=== PATIENT | male | born 1955 | race Caucasian/White ===

== ENCOUNTER 2016-08-29 21:44 | Emergency (ER) | payer MEDICARE, OTHER ==
[2016-08-29] MEDS ORDERED: NITROGLYCERIN 0.4 MG/TAB BTL SL ONE (22:01)
[2016-08-29 22:08] LABS: Hematocrit 41.1 % (42.0-52.0); Hemoglobin 14.4 gm/dL (13.5-18.0); Mean Cell Volume 87.3 fl (78-100); Mean Corpuscular Hemoglobin 30.6 pg (27-31); Mean Platelet Volume 9.7 fl (6.0-9.5); Neutrophil # 4.1 K/mm3 (1.3-6.0); Neutrophil % 65.7 % (42-75.0); Platelet Count 153 K/mm3 (150-450); Red Blood Count 4.71 M/mm3 (4.7-6.0); Red Cell Distribution Width 12.6 % (11.5-14.0); White Blood Count 6.2 K/mm3 (4.0-10.5)
[2016-08-29] MEDS ORDERED: MORPHINE SULFATE 4 MG/ML SYRG ONE (22:09)
[2016-08-29] MEDS ORDERED: MORPHINE SULFATE 4 MG/ML SYRG IV ONE (22:10)
[2016-08-29] MEDS ORDERED: ONDANSETRON HCL/PF 2 MG/ML VIAL ONE (22:16)
[2016-08-29] MEDS ORDERED: ONDANSETRON HCL/PF 2 MG/ML VIAL IV ONE (22:17)
[2016-08-29 22:23] LABS: INR 0.87 INR (0.90-1.10); Partial Thrombolplastin Time 30.3 Seconds (24-32)
[2016-08-29 22:29] LABS: ALT 81 U/L (19-67); AST 139 U/L (0-48); Albumin * 4.3 gm/dl (3.4-5.0); Alkaline Phosphatase * 78 U/L (50-170); Anion Gap 30.6 mmol/L (6.8-13.8); BNP * 120 pg/mL (5-175); BUN/Creatinine Ratio 7.5 (9.0-21.6); Bilirubin, Total 1.6 mg/dL (0.0-1.1); Blood Urea Nitrogen 7 mg/dL (6-23); Ca. Corrected For Albumin 8.4 mg/dL (8.4-10.2); Carbon Dioxide 15.9 mmol/L (24-32.6); Chloride 88 mmol/L (97-106); Glucose * 79 mg/dL (70-110); Potassium 3.5 mmol/L (3.4-4.6); Sodium 131 mmol/L (132-142); Total Protein 7.9 gm/dL (6.2-8.2); Troponin I Less than 0.017 ng/ml (0.00-0.10)
[2016-08-29] MEDS ORDERED: THIAMINE HCL 100 MG in NORMAL SALINE 50 ML IV ONE (23:31)
[2016-08-29] MEDS ORDERED: LORazepam 2 MG/ML DISP.SYRIN IV ONE (23:32)
[2016-08-29] MEDS ORDERED: LORazepam 2 MG/ML DISP.SYRIN ONE (23:38)
[2016-08-29] MEDS ORDERED: THIAMINE HCL 100 MG/ML VIAL ONE (23:49)
[2016-08-29] MEDS ORDERED: CODEINE PHOSPHATE/GUAIFENESIN 5 ML UDC PO ONE (23:56)
[2016-08-29] MEDS ORDERED: CODEINE PHOSPHATE/GUAIFENESIN 5 ML UDC ONE (23:57)
[2016-08-30 00:03] VITALS: BP 150/90
--- NOTE | 2016-08-30 00:04 | ERNOTE ---
Chest Pain/Cardiac HPI Date of Service: 08/30/16 Chief Complaint: Chest Pain Time Seen by Provider: 08/29/16 21:50 Source: patient, family Immunizations: IMMUNIZATION HX Immunizations Up to Date No History of Influenza Vaccine No Hx Pneumococcal Vaccination No Allergies/Adverse Reactions: Allergies No Known Allergies Allergy (Verified 02/13/16 12:49) Home Medications: HOME MEDICATIONS Amoxicillin Trihydrate [Amoxil] 875 mg PO BID #20 tab 05/05/16 [Last Taken Unknown] LORazepam [Ativan] 0.5 mg PO TID #15 tablet 05/13/16 [Last Taken Unknown] Guaifenesin/Codeine Phosphate [Guaifenesin-Codeine Syrup] 10 ml PO QID PRN #180 liquid 08/30/16 [Last Taken Unknown] - Patient's Past Medical History Patient History - Medical: Alcohol Abuse, Anxiety Patient History - Cardiac/Respiratory: No pertinent hx Patient History - Cancer: No Hx of Cancer Patient History - Surgical Procedures: Total Knee Replacement, Other - Family History Mother Family History - Medical: Father Family History - Medical: - Social History Living Situations: other Does anyone smoke in the home?: No Have you smoked in the past 12 months: No Do you dip or chew tobacco: Yes Alcohol Use: heavy Drug Use: marijuana ED Progress - Results and Orders Patient's Lab Results:: I have reviewed the patient's lab results. - Vital Signs Patient's Vital Signs:: I have reviewed the patient's vital signs. Vital Signs: Vital Signs 08/29/16 08/29/16 08/29/16 21:53 22:05 22:08 Temperature 37.7 C H Pulse Rate 114 H 110 H 110 H Respiratory 20 16 16 Rate Blood Pressure 164/97 164/97 145/96 O2 Sat by Pulse 99 97 98 Oximetry 08/29/16 08/29/16 08/29/16 22:20 22:28 22:38 Temperature Pulse Rate 110 H 110 H 113 H Respiratory 20 20 Rate Blood Pressure 136/87 135/94 O2 Sat by Pulse 97 99 Oximetry 08/29/16 08/29/16 23:02 23:44 Temperature Pulse Rate 102 H 98 Respiratory 20 20 Rate Blood Pressure 126/85 139/99 O2 Sat by Pulse 98 97 Oximetry - EKG EKG read: Interp. by me EKG Comments: Sinus tach, rate of 108. IVCD. No acute ST-T changes. - X-Ray X-Ray #1 X-Ray: chest Interpretation: Reviewed by me X-ray Comments: negative - Progress/Reassessment Chief Complaint: Chest Pain Progress:: Improved Departure - Departure Clinical Impression: Alcohol intoxication, Alcoholism /alcohol abuse, Pleurisy, Viral bronchitis Disposition: Home self-care Condition: Good Instructions: Alcohol Use Disorder, Pleurisy Additional Instructions: Use cough medication as needed for cough and pain. You may take ibuprofen as needed for pain- 400 mg 4 times per day. Take a daily multivitamin. Decrease the amount you drink or quit. If you develop alcohol withdrawal return to an ER or a rehab center. Prescriptions: Guaifenesin/Codeine Phosphate [Guaifenesin-Codeine Syrup] 10 ml PO QID PRN #180 liquid PRN Reason: Cough
== END 2016-08-30 00:15 | disposition home or self-care (01) ==
LOC: ER 21:44
DX: J20.8 Acute bronchitis due to other specified organisms (principal); R09.1 Pleurisy; F10.129 Alcohol abuse with intoxication, unspecified
CPT/HCPCS: 36415; 71010; 80053; 83880; 84484; 85025; 85610; 85730; 93005; 96365; 96375; 99283; G0481

== ENCOUNTER 2016-09-01 08:26 | Emergency (ER) | payer MEDICARE, OTHER ==
[2016-09-01 09:29] LABS: Hematocrit 37.3 % (42.0-52.0); Hemoglobin 12.8 gm/dL (13.5-18.0); Mean Cell Volume 89.2 fl (78-100); Mean Corpuscular Hemoglobin 30.6 pg (27-31); Mean Corpuscular Hgb Conc 34.3 g/dl (32-36); Mean Platelet Volume 9.6 fl (6.0-9.5); Neutrophil # 3.3 K/mm3 (1.3-6.0); Neutrophil % 62.8 % (42-75.0); Platelet Count 109 K/mm3 (150-450); Red Blood Count 4.18 M/mm3 (4.7-6.0); Red Cell Distribution Width 12.7 % (11.5-14.0); White Blood Count 5.2 K/mm3 (4.0-10.5)
[2016-09-01] MEDS ORDERED: ALBUTEROL SULFATE 2.5 MG/0.5 ML VIAL.NEB IH ONE ×2 (09:41→09:56)
[2016-09-01] MEDS ORDERED: IBUPROFEN 600 MG TABLET PO ONE (09:42)
--- NOTE | 2016-09-01 09:48 | ERNOTE ---
[id number] 4d 09/01/16 09:36 Source: patient Exam Limitations: no limitations - Immun/Allergies/Home Medications Immunizations: IMMUNIZATION HX Immunizations Up to Date No History of Influenza Vaccine No Hx Pneumococcal Vaccination No Allergies/Adverse Reactions: Allergies No Known Allergies Allergy (Verified 02/13/16 12:49) Home Medications: HOME MEDICATIONS Guaifenesin/Codeine Phosphate [Guaifenesin-Codeine Syrup] 10 ml PO QID PRN #180 liquid 08/30/16 [Last Taken Unknown] Azithromycin [Zithromax] 500 mg PO DAILY #3 tablet 09/01/16 [Last Taken Unknown] Ibuprofen [Motrin] 600 mg PO Q6H PRN #40 tab 09/01/16 [Last Taken Unknown] LORazepam [Ativan] 1 mg PO TID PRN #10 tablet 09/01/16 [Last Taken Unknown] - History of Present Illness Narrative: Patient states that he has had a cough with yellow sputum and dyspnoe for about three days. He was seen in the ER three days ago and send home with cough medication. While checking in to the Er he started to have a sharp left anterior chest pain without radiation. When asked bout ETOH intake he states that last was about 3 weeks ago, when asked about the level 3 days ago states that he had 3-4 shots at that time. Frequency of episodes: Reports: occassional episodes Review of Systems - Review of Systems Constitutional: Absent: fever, chills ENT: Present: nose congestion. Absent: sore throat Respiratory: Present: shortness of breath, cough, stridor Cardiology: Present: See HPI, chest pain Gastrointestinal/Abdominal: Absent: nausea, vomiting, diarrhea, abdominal pain Skin: Absent: rash Neurological: Absent: headache - Patient's Past Medical History Patient History - Medical: Alcohol Abuse, Anxiety Patient History - Cardiac/Respiratory: No pertinent hx Patient History - Cancer: No Hx of Cancer Patient History - Surgical Procedures: Total Knee Replacement, Other - Family History Mother Family History - Medical: Father Family History - Medical: - Social History Living Situations: other Does anyone smoke in the home?: No Smoking Status: Former smoker Have you smoked in the past 12 months: Yes Do you dip or chew tobacco: Yes Alcohol Use: heavy Drug Use: marijuana Physical Exam - Physical Exam General Appearance: Present: wd/wn, alert, no apparent distress, anxious Eye Exam: Normal inspection: bilateral, PERRL: bilateral Ears, Nose, Throat: Present: normal pharynx, dry mucous membranes Respiratory: Present: no respiratory distress, no accessory muscle use, chest tenderness - anterior left lower chest, decreased breath sounds, expiration ( prolonged) Cardiovascular/Chest: Present: regular rate, rhythm, no murmur Gastrointestinal/Abdominal: Present: nontender, nondistended, soft Extremity Exam: Present: no edema Neurological Exam: Present: alert, oriented, normal mood/affect Skin Exam: Present: normal color, warm/dry ED Progress - Results and Orders Patient's Lab Results:: I have reviewed the patient's lab results. - Vital Signs Patient's Vital Signs:: I have reviewed the patient's vital signs. Vital Signs: Vital Signs 09/01/16 08:59 Temperature 37.7 C H Pulse Rate 88 Respiratory 20 Rate Blood Pressure 191/115 O2 Sat by Pulse 99 Oximetry - EKG EKG: NSR, other - intraventricular conduction delay EKG read: Interp. by me - X-Ray X-Ray #1 X-Ray: chest - questionable infiltrate right lower lung Interpretation: Reviewed by me X-ray Comments: discussed results with patient - Progress/Reassessment Chief Complaint: Dyspnea Progress Note-Subjective: 09/01/16 10:16 patient very anxious after neb treatment 09/01/16 11:05 lungs improved after neb treatment, discussed results and questionable diagnosis of pneumonia patient states that he is not planing on drinking ETOH again, stopped drinking once before years ago and got tremor but no seizure, slight hand tremor notice currently, discussed medications to help with withdrawl, will set up for follow up Departure Clinical Impression: Alcoholism /alcohol abuse Alcohol withdrawal Qualifiers: Complication of substance-induced condition: uncomplicated Qualified Code(s): F10.230 - Alcohol dependence with withdrawal, uncomplicated Pneumonia Qualifiers: Pneumonia type: due to unspecified organism Laterality: right Lung location: lower lobe of lung Qualified Code(s): J18.1 - Lobar pneumonia, unspecified organism - Departure Disposition: Home self-care Condition: Fair Instructions: Delirium Tremens, [id number], Community-Acquired Pneumonia, Adult, [id number] Referrals: Nereyda Tamayo FNP [[facility]] - 09/11/16 1:30 pm Prescriptions: Azithromycin [Zithromax] 500 mg PO DAILY #3 tablet Ibuprofen [Motrin] 600 mg PO Q6H PRN #40 tab PRN Reason: Pain LORazepam [Ativan] 1 mg PO TID PRN #10 tablet PRN Reason: Alcohol Withdrawal
[2016-09-01 09:49] LABS: ALT 93 U/L (19-67); AST 154 U/L (0-48); Albumin * 3.8 gm/dl (3.4-5.0); Alkaline Phosphatase * 62 U/L (50-170); Anion Gap 19.2 mmol/L (6.8-13.8); BUN/Creatinine Ratio 10.6 (9.0-21.6); Bilirubin, Total 0.6 mg/dL (0.0-1.1); Blood Urea Nitrogen 10 mg/dL (6-23); Ca. Corrected For Albumin 8.7 mg/dL (8.4-10.2); Calcium * 8.9 mg/dL (7.9-10.9); Carbon Dioxide 22.9 mmol/L (24-32.6); Chloride 98 mmol/L (97-106); Glucose * 125 mg/dL (70-110); Potassium 3.1 mmol/L (3.4-4.6); Sodium 137 mmol/L (132-142); Total Protein 7.1 gm/dL (6.2-8.2)
[2016-09-01 09:50] LABS: Troponin I Less than 0.017 ng/ml (0.00-0.10)
[2016-09-01] MEDS ORDERED: IBUPROFEN 600 MG TABLET ONE (09:55)
[2016-09-01] MEDS ORDERED: LORazepam 2 MG/ML DISP.SYRIN IM ONE (10:12)
[2016-09-01] MEDS ORDERED: LORazepam 2 MG/ML DISP.SYRIN ONE (10:12)
[2016-09-01] MEDS ORDERED: LORazepam 1 MG TABLET PO ONE (11:00)
[2016-09-01] MEDS ORDERED: AZITHROMYCIN 250 MG TABLET PO ONE (11:02)
[2016-09-01] MEDS ORDERED: LORazepam 1 MG TABLET ONE (11:04)
[2016-09-01] MEDS ORDERED: AZITHROMYCIN 250 MG TABLET ONE (11:05)
[2016-09-01] MEDS ORDERED: THIAMINE HCL 100 MG/ML VIAL IM ONE (11:05)
[2016-09-01] MEDS ORDERED: THIAMINE HCL 100 MG/ML VIAL ONE (11:06)
[2016-09-01 12:07] VITALS: BP 170/101
== END 2016-09-01 11:15 | disposition home or self-care (01) ==
LOC: ER 08:26
DX: F10.230 Alcohol dependence with withdrawal, uncomplicated (principal); J18.1 Lobar pneumonia, unspecified organism; Z87.891 Personal history of nicotine dependence
CPT/HCPCS: 36415; 71020; 80053; 84484; 85025; 87400; 93005; 94760; 96372; 99284; G0481

== ENCOUNTER 2016-11-10 10:06 | Emergency (ER) | payer MEDICARE, OTHER ==
[2016-11-10] MEDS ORDERED: ORPHENADRINE CITRATE 30 MG/ML VIAL ONE (10:29)
--- NOTE | 2016-11-10 10:36 | ERNOTE ---
Date of Service: 11/10/16 Time Seen by Provider: 11/10/16 10:36 Stated Complaint: COUGH/BODY ACHES Presenting Symptoms:: cough Source: patient, RN notes reviewed Exam Limitations: clinical condition Immunizations: IMMUNIZATION HX Immunizations Up to Date No History of Influenza Vaccine No Hx Pneumococcal Vaccination No Allergies/Adverse Reactions: Allergies No Known Allergies Allergy (Verified 02/13/16 12:49) Home Medications: HOME MEDICATIONS Albuterol Sulfate [Ventolin Hfa] 2 puff IH Q4H PRN #1 inhaler 11/10/16 [Last Taken Unknown] Azithromycin [Zithromax] 250 mg PO DAILY #6 tablet 11/10/16 [Last Taken Unknown] Guaifenesin/Codeine Phosphate [Guaifenesin-Codeine Syrup] 10 ml PO Q4H PRN #180 ml 11/10/16 [Last Taken Unknown] predniSONE [Prednisone] 2 tab PO DAILY #14 tab 11/10/16 [Last Taken Unknown] - History of Present Ilness Narrative: 60 y/o male ambulatory to the ED for a cough that began 2 days ago. He also reports body aches. He has been taking an OTC cough /cold medication. He denies sick contacts. Date (Duration): 11/08/16 Timing: getting worse Frequency/Possible Cause: Reports: unknown cause Associated Symptoms: Reports: chest pain/soreness, cough, nasal drainage, headache, muscle aches. Denies: shortness of breath, wheezing, facial pain, nasal congestion, lightheadedness, earache, sore throat Prior Treatment: Denies: currently on antibiotics Review of Systems - Review of Systems Constitutional: Present: fatigue, malaise. Absent: chills EYE: Present: no symptoms reported ENT: Present: See HPI Respiratory: Present: See HPI Cardiology: Absent: palpitations, syncope, edema Gastrointestinal/Abdominal: Present: diarrhea. Absent: nausea, vomiting, abdominal pain Genitourinary: Present: no symptoms reported Musculoskeletal: Present: See HPI Neurological: Present: headache. Absent: dizziness/light-headedness Endocrine: Present: no symptoms reported Hematologic/Lymphatic: Present: no symptoms reported Psych: Present: no symptoms reported - Patient's Past Medical History Patient History - Medical: Alcohol Abuse, Anxiety Patient History - Cardiac/Respiratory: COPD Patient History - Cancer: No Hx of Cancer Patient History - Surgical Procedures: Total Knee Replacement, Other Patient History - Other: None - Family History Mother Family History - Medical: Father Family History - Medical: - Social History Living Situations: home Abuse History: No History of abuse Psych History: Hx of Anxiety Does anyone smoke in the home?: No Smoking Status: Former smoker Have you smoked in the past 12 months: No Do you dip or chew tobacco: Yes Patient requests Smoking Cessation Consult: No Initiate information on Smoking Cessation: No Alcohol Use: heavy Drug Use: marijuana - Immunizations Immunizations Up to Date: No Hx Pneumococcal Vaccination: No History of Influenza Vaccine: No Physical Exam - Physical Exam General Appearance: Present: wd/wn, alert, no apparent distress Eye Exam: Normal inspection: bilateral Ears, Nose, Throat: Present: hearing decreased, nasal congestion, pharyngeal erythema. Absent: abnormal TM (R), abnormal TM (L), sinus pain/drainage, tonsillar swelling Neck: Present: normal inspection, nontender, supple Respiratory: Present: no respiratory distress, chest tenderness, accessory muscle use - mild, expiration (prolonged), rhonchi, wheezing Cardiovascular/Chest: Present: regular rate, rhythm, no murmur, normal peripheral pulses Gastrointestinal/Abdominal: Present: nontender, nondistended, soft Extremity Exam: Present: normal inspection, normal range of motion, no edema Neurological Exam: Present: alert, oriented, normal mood/affect, no motor/ sensory deficits, other - freq abnormal movements, akasthesia-like Skin Exam: Present: normal color, warm/dry ED Progress - Results and Orders Patient's Lab Results:: I have reviewed the patient's lab results. - Vital Signs Patient's Vital Signs:: I have reviewed the patient's vital signs. Vital Signs: Vital Signs 11/10/16 10:12 Temperature 37 C Pulse Rate 113 H Respiratory 20 Rate Blood Pressure 147/86 O2 Sat by Pulse 99 Oximetry - X-Ray X-Ray #1 X-Ray: chest Interpretation: Reviewed by me X-ray Comments: Technique: Frontal and lateral views of the chest are evaluated. (2) views. Comparison: Prior exams, most recent is September 01, 2016. Findings: The lungs are symmetrically inflated. No focal consolidation. Biapical scarring noted. No pneumothorax or pleural effusion. The cardiac silhouette and mediastinal contours are normal. Atherosclerotic changes are present at the aortic arch. Pulmonary vascular markings are normal. The osseous structures are remarkable for degenerative changes. No acute osseous findings. IMPRESSION: No acute pulmonary findings. Electronically signed by Art Lopez D.O.. - Progress/Reassessment Chief Complaint: Cough Progress:: Improved Plan - Plan Plan: Patient pancytopenic and LFT's are elevated beyond his normal with his chronic alcohol use. Recheck scheduled with PCP for the end of this week. Departure - Departure Clinical Impression: COPD with acute exacerbation Disposition: Home Follow Up Needed Condition: Stable Instructions: Chronic Obstructive Pulmonary Disease Exacerbation, [id number] Additional Instructions: Avoid over the counter medications containing Tylenol (acetominophen) because of your liver impairment Recheck with Nereyda Tamayo as scheduled Referrals: Nereyda Tamayo, [facility] [[facility]] - 11/14/16 8:45 am Prescriptions: Albuterol Sulfate [Ventolin Hfa] 2 puff IH Q4H PRN #1 inhaler PRN Reason: Shortness Of Breath Azithromycin [Zithromax] 250 mg PO DAILY #6 tablet Guaifenesin/Codeine Phosphate [Guaifenesin-Codeine Syrup] 10 ml PO Q4H PRN #180 ml PRN Reason: Cough predniSONE [Prednisone] 2 tab PO DAILY #14 tab
[2016-11-10] MEDS ORDERED: ALBUTEROL SULFATE/IPRATROPIUM 3 ML NEBU IH ONE ×2 (10:47→10:52)
[2016-11-10 11:11] LABS: Hematocrit 39.9 % (42.0-52.0); Hemoglobin 14.1 gm/dL (13.5-18.0); Mean Cell Volume 87.3 fl (78-100); Mean Corpuscular Hemoglobin 30.9 pg (27-31); Mean Corpuscular Hgb Conc 35.3 g/dl (32-36); Mean Platelet Volume 10.9 fl (6.0-9.5); Neutrophil # 1.8 K/mm3 (1.3-6.0); Neutrophil % 65.2 % (42-75.0); Platelet Count 105 K/mm3 (150-450); Red Blood Count 4.57 M/mm3 (4.7-6.0); White Blood Count 2.8 K/mm3 (4.0-10.5)
[2016-11-10] MEDS ORDERED: NALBUPHINE HCL 20 MG/ML AMPUL ONE (11:11)
[2016-11-10 11:21] LABS: Anion Gap 18.5 mmol/L (6.8-13.8); BUN/Creatinine Ratio 13.3 (9.0-21.6); Bilirubin, Total 0.6 mg/dL (0.0-1.1); Ca. Corrected For Albumin 8.7 mg/dL (8.4-10.2); Carbon Dioxide 23.7 mmol/L (24-32.6); Potassium 3.2 mmol/L (3.4-4.6); Total Protein 7.6 gm/dL (6.2-8.2)
[2016-11-10 17:45] VITALS: BP 135/84
== END 2016-11-10 12:32 | disposition home or self-care (01) ==
LOC: ER 10:06
DX: J44.1 Chronic obstructive pulmonary disease with (acute) exacerbation (principal); Z72.0 Tobacco use

== ENCOUNTER 2016-11-11 17:02 | Emergency (ER) | payer MEDICARE, OTHER ==
[2016-11-11 17:31] LABS: Hematocrit 40.5 % (42.0-52.0); Hemoglobin 13.7 gm/dL (13.5-18.0); Mean Cell Volume 89.6 fl (78-100); Mean Corpuscular Hemoglobin 30.3 pg (27-31); Mean Corpuscular Hgb Conc 33.8 g/dl (32-36); Mean Platelet Volume 9.9 fl (6.0-9.5); Neutrophil % 64.6 % (42-75.0); Platelet Count 143 K/mm3 (150-450); Red Blood Count 4.52 M/mm3 (4.7-6.0); White Blood Count 3.1 K/mm3 (4.0-10.5)
--- NOTE | 2016-11-11 17:32 | ERNOTE ---
Upper Extremity HPI - General Extremities Pain Location: shoulder: left, arm: left Time Seen by Provider: 11/11/16 17:21 Source: patient Exam Limitations: no limitations - Immun/Allergies/Home Medications Immunizations: IMMUNIZATION HX Immunizations Up to Date No History of Influenza Vaccine No Hx Pneumococcal Vaccination No Allergies/Adverse Reactions: Allergies Allergy/AdvReac Type Severity Reaction Status Date / Time No Known Allergies Allergy Verified 11/11/16 17:15 Home Medications: HOME MEDICATIONS Albuterol Sulfate [Ventolin Hfa] 2 puff IH Q4H PRN #1 inhaler 11/10/16 [Last Taken Unknown] Azithromycin [Zithromax] 250 mg PO DAILY #6 tablet 11/10/16 [Last Taken Unknown] Guaifenesin/Codeine Phosphate [Guaifenesin-Codeine Syrup] 10 ml PO Q4H PRN #180 ml 11/10/16 [Last Taken Unknown] predniSONE [Prednisone] 2 tab PO DAILY #14 tab 11/10/16 [Last Taken Unknown] Cyclobenzaprine HCl [Flexeril] 10 mg PO TID PRN #30 tab 11/11/16 [Last Taken Unknown] Methylprednisolone [Medrol Dosepak] 4 mg PO DAILY #1 tab.ds.pk 11/11/16 [Last Taken Unknown] - History of Present Illness Narrative: Pt had onset of left shoulder and arm pain while making supper this evening. Occurred: just prior to arrival Location of Incident: home Severity: moderate Method of Injury: Reports: no apparent injury Modifying Factors - (Worsens): Reports: movement Associated Symptoms: Reports: tingling - of arm Other Injuries: Reports: none Review of Systems - Review of Systems Constitutional: Present: recent illness - dx with acute exacerbation of COPD yesterday EYE: Present: no symptoms reported ENT: Present: no symptoms reported Respiratory: Present: cough Cardiology: Present: no symptoms reported Gastrointestinal/Abdominal: Present: no symptoms reported Genitourinary: Present: no symptoms reported Musculoskeletal: Present: See HPI, muscle pain, neck pain Skin: Present: no symptoms reported Neurological: Present: See HPI, tingling Endocrine: Present: no symptoms reported Hematologic/Lymphatic: Present: no symptoms reported Psych: Present: no symptoms reported - Patient's Past Medical History Patient History - Medical: Alcohol Abuse, Anxiety Patient History - Cardiac/Respiratory: COPD Patient History - Cancer: No Hx of Cancer Patient History - Surgical Procedures: Total Knee Replacement, Other Patient History - Other: None - Family History Mother Family History - Medical: Father Family History - Medical: - Social History Living Situations: home Abuse History: No History of abuse Psych History: Hx of Anxiety Does anyone smoke in the home?: No Smoking Status: Former smoker Do you dip or chew tobacco: Yes Alcohol Use: heavy Drug Use: marijuana - Immunizations Immunizations Up to Date: No Hx Pneumococcal Vaccination: No History of Influenza Vaccine: No Physical Exam - Physical Exam General Appearance: Present: wd/wn, alert, anxious Eye Exam: Normal inspection: bilateral Respiratory: Present: no respiratory distress, normal breath sounds Cardiovascular/Chest: Present: regular rate, rhythm, no murmur, normal peripheral pulses Gastrointestinal/Abdominal: Present: nontender, nondistended, soft Back Exam: Present: no vertebral tenderness, muscle spasm - upper trapezius Extremity Exam: Present: normal range of motion - of shoulder with pain with any movement Neurological Exam: Present: alert, oriented. Absent: motor weakness Skin Exam: Present: normal color, warm/dry ED Progress - Results and Orders Patient's Lab Results:: I have reviewed the patient's lab results. Results and Orders: Laboratory Tests 11/11/16 11/11/16 11/11/16 17:25 17:25 17:25 WBC 3.1 L Hgb 13.7 Hct 40.5 L Plt Count 143 L PT 9.6 INR (Anticoag Therapy) 0.92 PTT (Dc) 31.9 Sodium 135 Potassium 3.5 Chloride 97 Carbon Dioxide 23.9 L Anion Gap 17.6 H BUN 9 Creatinine 0.86 Est GFR (Non-Af Amer) 97 Random Glucose 124 H Calcium 8.7 Total Bilirubin 0.4 AST 375 H ALT 308 H Alkaline Phosphatase 59 Troponin I Less than 0.017 Total Protein 7.5 Albumin 4.0 - Vital Signs Vital Signs: Vital Signs 11/11/16 17:06 Temperature 37.6 C H Pulse Rate 120 H Respiratory 16 Rate Blood Pressure 156/109 O2 Sat by Pulse 96 Oximetry - EKG EKG read: Interp. by me EKG Comments: sinus tach. Intraventricular conduction delay seen on previous 09/01/2016. - Progress/Reassessment Chief Complaint: Upper Extremity Injury/Problem Departure Clinical Impression: Radiculopathy of arm - Departure Disposition: Home self-care Condition: Good Instructions: Cervical Radiculopathy Additional Instructions: Take medrol dose pack instead of the prednisone prescribed to you yesterday. Referrals: Nereyda Tamayo FNP [Primary Care Provider] - Prescriptions: Cyclobenzaprine HCl [Flexeril] 10 mg PO TID PRN #30 tab PRN Reason: MUSCLE SPASMS Methylprednisolone [Medrol Dosepak] 4 mg PO DAILY #1 tab.ds.pk
[2016-11-11 17:42] LABS: Prothrombin Time (Patient) 9.6 Seconds (9.4-11.4)
[2016-11-11 17:48] LABS: ALT 308 U/L (19-67); AST 375 U/L (0-48); Alkaline Phosphatase * 59 U/L (50-170); Anion Gap 17.6 mmol/L (6.8-13.8); BUN/Creatinine Ratio 10.5 (9.0-21.6); Bilirubin, Total 0.4 mg/dL (0.0-1.1); Blood Urea Nitrogen 9 mg/dL (6-23); Ca. Corrected For Albumin 8.4 mg/dL (8.4-10.2); Calcium * 8.7 mg/dL (7.9-10.9); Carbon Dioxide 23.9 mmol/L (24-32.6); Chloride 97 mmol/L (97-106); Glucose * 124 mg/dL (70-110); Potassium 3.5 mmol/L (3.4-4.6); Sodium 135 mmol/L (132-142); Total Protein 7.5 gm/dL (6.2-8.2)
[2016-11-11 17:52] LABS: INR 0.92 INR (0.90-1.10); Partial Thrombolplastin Time 31.9 Seconds (24-32)
[2016-11-11 17:53] LABS: Troponin I Less than 0.017 ng/ml (0.00-0.10)
[2016-11-11 18:26] VITALS: BP 140/86
== END 2016-11-11 18:18 | disposition home or self-care (01) ==
LOC: ER 17:02
DX: M54.10 Radiculopathy, site unspecified (principal); Z87.891 Personal history of nicotine dependence; J44.9 Chronic obstructive pulmonary disease, unspecified; M79.602 Pain in left arm

== ENCOUNTER 2016-12-10 10:31 | Emergency (ER) | payer MEDICARE, OTHER ==
[2016-12-10] MEDS ORDERED: KETOROLAC TROMETHAMINE 30 MG/ML VIAL IM ONE (10:43)
[2016-12-10] MEDS ORDERED: KETOROLAC TROMETHAMINE 30 MG/ML VIAL ONE (10:53)
--- NOTE | 2016-12-10 10:55 | ERNOTE ---
Back Pain ER HPI Date of Service: 12/10/16 Presenting Symptoms: injury/pain to back Time Seen by Provider: 12/10/16 10:39 Source: patient, EMS Exam Limitations: other - It is recognized that patient used some alcohol prior coming to the ER, but patient has a full mental status at the moment is logically talking. Immunizations: IMMUNIZATION HX Immunizations Up to Date No History of Influenza Vaccine No Hx Pneumococcal Vaccination No Allergies/Adverse Reactions: Allergies No Known Allergies Allergy (Verified 12/10/16 10:50) Home Medications: HOME MEDICATIONS Naproxen 500 mg PO BID #20 tablet. 12/10/16 [Last Taken Unknown] Narrative: Patient reported that he felt recently and that today due to the pain on his mid and lower back area could not walk. Patient reported that he called the EMS to come to the ER to be evaluated. Timing: Reports: constant Quality/Severity: Reports: mild Location of pain: Reports: mid back, lower back Body Front/Back Adult: 1 - Patient pointed to this area for pain Activities at Onset: Reports: other - walking and moving Possible Precipitating Factor: Reports: fall/near fall, trauma Modifying Factors - (Improves): Reports: nothing Modifying Factors - (Worsens): Reports: movement to right, movement to left, movement flexion Associated Symptoms: Denies: fever/chills, sweating, constipation/incontinence, nausea/vomiting, problems urinating, difficulty walking, lightheadedness, numbess/weakness in legs Prior Treament: Denies: recently seen Review of Systems - Review of Systems Constitutional: Absent: fever, chills, diaphoresis, weakness EYE: Present: no symptoms reported ENT: Present: no symptoms reported Respiratory: Present: no symptoms reported Cardiology: Present: no symptoms reported Gastrointestinal/Abdominal: Absent: nausea, vomiting, diarrhea, constipation Genitourinary: Present: no symptoms reported Musculoskeletal: Present: back pain, muscle pain, neck pain. Absent: joint pain , joint swelling Skin: Present: no symptoms reported Neurological: Present: no symptoms reported Endocrine: Present: no symptoms reported Hematologic/Lymphatic: Present: no symptoms reported Psych: Present: no symptoms reported All Other Systems: All systems neg except as marked - Patient's Past Medical History Patient History - Medical: Alcohol Abuse, Anxiety Patient History - Cardiac/Respiratory: COPD Patient History - Cancer: No Hx of Cancer Patient History - Surgical Procedures: Total Knee Replacement, Other Patient History - Other: None - Family History Mother Family History - Medical: Father Family History - Medical: - Social History Living Situations: home Abuse History: No History of abuse Psych History: Hx of Anxiety Does anyone smoke in the home?: No Alcohol Use: heavy Drug Use: marijuana - Immunizations Immunizations Up to Date: No Hx Pneumococcal Vaccination: No History of Influenza Vaccine: No Physical Exam - Physical Exam General Appearance: Present: wd/wn, alert, no apparent distress Eye Exam: Normal inspection: bilateral, PERRL: bilateral, EOMI: bilateral Ears, Nose, Throat: Present: normal ENT inspection Neck: Present: normal inspection, nontender Respiratory: Present: no respiratory distress, normal breath sounds, no accessory muscle use, chest nontender, lungs clear Cardiovascular/Chest: Present: regular rate, rhythm, no murmur, normal peripheral pulses Gastrointestinal/Abdominal: Present: normal bowel sounds, nontender, nondistended, soft, no organomegaly Back Exam: Present: vertebral tenderness - mid and lower area, muscle spasm. Absent: CVA tenderness (R), CVA tenderness (L), decreased range of motion Extremity Exam: Present: normal inspection, non-tender, normal range of motion, no edema Neurological Exam: Present: alert, oriented, normal mood/affect, no motor/ sensory deficits Skin Exam: Present: normal color, warm/dry Lymphatic Exam: Present: no adenopathy ED Progress - Date and Time Seen: Date and Time: 12/10/16 10:52 GCS: 15/15, NIH Stroke Scale: 0, Patient with lower back pain. On evaluation patient was sitting with no distress moving all extremities and with a full mental status. Patient with no open wounds. Patient denied any head Tx. Patient with no LOC. At this point patient with no neurologic deficits. Patient will be done x-ray of spine. No Tx with narcotics will be given due to hx of alcohol use. 12/10/16 11:21 Patient was found with two ticks on his genital area that were removed. The ticks were already . The ticks head were removed. Patient will be given prophylaxis. 12/10/16 11:23 Patient was able to stand and walk with no pain. 12/10/16 12:46 Patient was found with Fx at C6. At this point I had called [facility] and requested consult with Neurosurgeon. 12/10/16 12:54 Neurosurgeon at [facility] will follow up in office. Patient is to be placed on hard reji and no need to transfer at this point. Dr. Iyer can be seen at [facility] - [address] [place] [address] - [phone]. - Vital Signs Patient's Vital Signs:: I have reviewed the patient's vital signs. - X-Ray X-Ray #1 X-Ray: T and L Spine - No Fx reported X-Ray #2 X-Ray: c-spine - Radiology recommended CT of C-Spine - CT/Ultrasound CT/Ultrasound Narrative: CT: Cervical Spine: Fx C6 was reported CT : Head: No acute findings reported by Radiologist - Progress/Reassessment Progress:: Improved - Transfer of Care Expected Disposition: Discharge Plan - Plan Plan: Patient if to follow with PCP Departure Clinical Impression: Muscle spasm Back pain Qualifiers: Back pain location: back pain in other location Chronicity: unspecified Qualified Code(s): M54.89 - Other dorsalgia C6 cervical fracture Qualifiers: Encounter type: initial encounter Fracture type: closed Fracture morphology: unspecified fracture morphology Fracture alignment: nondisplaced Qualified Code( s): S12.501A - Unspecified nondisplaced fracture of sixth cervical vertebra, initial encounter for closed fracture - Departure Disposition: Home self-care Condition: Stable Instructions: Cervical Radiculopathy, Low Back Sprain With Rehab-SportsMed, Cervical Spine Fracture, Stable Additional Instructions: You have a broken bone in your neck. You are to use the cervical collar at all times until seen by a Neurosurgeon. Dr. Iyer (Neurosurgeon) at [facility] can give you follow up. He is located at [address] [place] [address]. Tel. [phone] Ext. [phone]. Prescriptions: Naproxen 500 mg PO BID #20 tablet.
[2016-12-10] MEDS ORDERED: AMOX TR/POTASSIUM CLAVULANATE 875 MG TABLET PO ONE (11:22)
[2016-12-10] MEDS ORDERED: AMOX TR/POTASSIUM CLAVULANATE 875 MG TABLET ONE (11:27)
[2016-12-10] MEDS ORDERED: LORazepam 1 MG TABLET PO ONE (12:37)
[2016-12-10 14:33] VITALS: BP 187/116
== END 2016-12-10 14:30 | disposition home or self-care (01) ==
LOC: ER 10:31
DX: S12.501A Unspecified nondisplaced fracture of sixth cervical vertebra, initial encounter for closed fracture (principal); M54.89 Other dorsalgia; M62.838 Other muscle spasm; W17.81XA Fall down embankment (hill), initial encounter

== ENCOUNTER 2016-12-11 23:45 | Emergency (ER) | payer MEDICARE, OTHER ==
[2016-12-12] MEDS ORDERED: ORPHENADRINE CITRATE 30 MG/ML VIAL IM ONE (00:59)
[2016-12-12] MEDS ORDERED: ORPHENADRINE CITRATE 30 MG/ML VIAL ONE (01:09)
--- NOTE | 2016-12-12 01:13 | ERNOTE ---
Back Pain ER HPI Presenting Symptoms: injury/pain to back Time Seen by Provider: 12/12/16 00:45 Source: patient Exam Limitations: clinical condition, intoxication Immunizations: IMMUNIZATION HX Immunizations Up to Date Yes History of Influenza Vaccine No Hx Pneumococcal Vaccination No Allergies/Adverse Reactions: Allergies No Known Allergies Allergy (Verified 12/10/16 10:50) Home Medications: HOME MEDICATIONS Naproxen 500 mg PO BID #20 tablet. 12/10/16 [Last Taken Unknown] Cyclobenzaprine HCl [Flexeril] 10 mg PO TID PRN #30 tab 12/12/16 [Last Taken Unknown] Narrative: Pt has had mulitple falls lately. He was seen in this ED yesterday, diagnosed with a non-displaced C6 facet fracture. He was given a hard collar and told to follow up with neurosurgery. pt states he is having more pain. Pt states he is unable to wear the collar because it chokes him. Pt arrived with the collar in his hand today. Timing: Reports: constant Quality/Severity: Reports: moderate Location of pain: Reports: other - neck Recent Injury?: Reports: yes Possible Precipitating Factor: Reports: fall/near fall Review of Systems - Review of Systems Constitutional: Present: no symptoms reported EYE: Present: no symptoms reported ENT: Present: no symptoms reported Respiratory: Present: no symptoms reported Cardiology: Present: no symptoms reported Gastrointestinal/Abdominal: Present: no symptoms reported Genitourinary: Present: no symptoms reported Musculoskeletal: Present: See HPI, muscle stiffness Skin: Present: no symptoms reported Neurological: Present: tingling Endocrine: Present: no symptoms reported Hematologic/Lymphatic: Present: no symptoms reported - Patient's Past Medical History Patient History - Medical: Alcohol Abuse, Anxiety Patient History - Cardiac/Respiratory: COPD Patient History - Cancer: No Hx of Cancer Patient History - Surgical Procedures: Total Knee Replacement, Other Patient History - Other: None - Family History Mother Family History - Medical: Father Family History - Medical: - Social History Living Situations: home Abuse History: No History of abuse Psych History: Hx of Anxiety Does anyone smoke in the home?: No Smoking Status: Former smoker Have you smoked in the past 12 months: No Do you dip or chew tobacco: Yes Patient requests Smoking Cessation Consult: No Initiate information on Smoking Cessation: No Alcohol Use: heavy Drug Use: marijuana - Immunizations Immunizations Up to Date: Yes Hx Pneumococcal Vaccination: No History of Influenza Vaccine: No Physical Exam - Physical Exam General Appearance: Present: wd/wn, alert, no apparent distress Neck: Present: normal inspection, supple, full range of motion, tender lateral Back Exam: Present: no vertebral tenderness, muscle spasm Extremity Exam: Present: normal inspection, no edema Neurological Exam: Present: alert, oriented, other - Pt has dystonic type movements. Affect inconsistant with reports of pain Skin Exam: Present: normal color, warm/dry Lymphatic Exam: Present: no adenopathy ED Progress - Vital Signs Vital Signs: Vital Signs 12/12/16 00:00 Temperature 38.0 C H Pulse Rate 121 H Respiratory 20 Rate Blood Pressure 162/108 O2 Sat by Pulse 98 Oximetry - Progress/Reassessment Chief Complaint: Back Pain Departure Clinical Impression: C6 cervical fracture Qualifiers: Encounter type: subsequent encounter Fracture type: closed Fracture morphology : unspecified fracture morphology Fracture alignment: nondisplaced Fracture healing: with routine healing Qualified Code(s): S12.501D - Unspecified nondisplaced fracture of sixth cervical vertebra, subsequent encounter for fracture with routine healing - Departure Disposition: Home Follow Up Needed Condition: Good Instructions: Muscle Cramps and Spasms, [id number] Additional Instructions: Take muscle relaxers regularly for 5-7 days then take as needed. Continue to take the medication given to you yesterday. Follow up with Neurosurgery as directed by Dr. Parekh. Return to ER as needed Referrals: Nereyda Tamayo FNP [Primary Care Provider] - Prescriptions: Cyclobenzaprine HCl [Flexeril] 10 mg PO TID PRN #30 tab PRN Reason: MUSCLE SPASMS
[2016-12-12 02:44] VITALS: BP 172/99
== END 2016-12-12 01:30 | disposition home or self-care (01) ==
LOC: ER 23:45
DX: S12.501D Unspecified nondisplaced fracture of sixth cervical vertebra, subsequent encounter for fracture with routine healing (principal); Z72.0 Tobacco use

== ENCOUNTER 2016-12-16 12:37 | Emergency (ER) | payer MEDICARE, OTHER ==
--- NOTE | 2016-12-16 16:07 | ERNOTE ---
Head Injury HPI - Narrative Date of Service: 12/16/16 - General Time Seen by Provider: 12/16/16 12:50 Source: patient Exam Limitations: no limitations - Immun/Allergies/Home Medications Immunization: IMMUNIZATION HX Immunizations Up to Date Yes History of Influenza Vaccine Yes Hx Pneumococcal Vaccination Yes Allergies/Adverse Reactions: Allergies Allergy/AdvReac Type Severity Reaction Status Date / Time No Known Allergies Allergy Verified 12/16/16 12:48 Home Medications: HOME MEDICATIONS Naproxen 500 mg PO BID #20 tablet. 12/10/16 [Last Taken Unknown] Cyclobenzaprine HCl [Flexeril] 10 mg PO TID PRN #30 tab 12/12/16 [Last Taken Unknown] Diazepam [Valium] 2 mg PO TID PRN #12 tablet 12/16/16 [Last Taken Unknown] - History of Present Illness Narrative: Patient presents with neck pain. He has a known C6 facet fracture. He has been out with a soft collar, awaiting appointment with neurosurg for f/u. He relates he had more pain in the right neck today and felt like there may have been a "pop" there. He denies trauma with this but states he did slip while mushroom hunting 3 days ago and lucía his neck. He denies other injuries. No focal N/T/W. No CP or SOB. He states the pain in his neck has been severe ever since this happened. Worse with movement. Occurred: other - prior injury and CT imaging on that date reviewed. Severity: severe Associated Symptoms: Denies: chest pain, shortness of breath Other Pain/Injuries: No acute focal N/T/W. Review of Systems - Review of Systems Constitutional: Absent: fever Respiratory: Absent: shortness of breath Cardiology: Absent: chest pain Gastrointestinal/Abdominal: Absent: abdominal pain Genitourinary: Absent: dysuria Neurological: Absent: weakness - Patient's Past Medical History Patient History - Medical: Alcohol Abuse, Anxiety Patient History - Cardiac/Respiratory: COPD Patient History - Cancer: No Hx of Cancer Patient History - Surgical Procedures: Total Knee Replacement, Other Patient History - Other: None - Family History Mother Family History - Medical: Father Family History - Medical: - Social History Living Situations: home Abuse History: No History of abuse Psych History: Hx of Anxiety Does anyone smoke in the home?: No Smoking Status: Never smoker Do you dip or chew tobacco: Yes Alcohol Use: heavy Drug Use: marijuana - Immunizations Immunizations Up to Date: Yes Hx Pneumococcal Vaccination: Yes History of Influenza Vaccine: Yes Physical Exam - Physical Exam General Appearance: Present: alert, no apparent distress Eye Exam: Normal inspection: bilateral, PERRL: bilateral Ears, Nose, Throat: Present: normal ENT inspection Neck: Present: other - in a soft cervical collar, tendenress bilateral musculature. No localizing point vertebral tenderess. Respiratory: Present: no respiratory distress, normal breath sounds, no accessory muscle use Cardiovascular/Chest: Present: other - borderline tachycardia, regular. Gastrointestinal/Abdominal: Present: normal bowel sounds, nontender, soft Back Exam: Present: normal range of motion Extremity Exam: Present: other - no deformity Neurological Exam: Present: alert, no motor/sensory deficits, other - no acute unilateral focal motor or sensory deficits. Skin Exam: Present: warm/dry ED Progress - Vital Signs Patient's Vital Signs:: I have reviewed the patient's vital signs. Vital Signs: Vital Signs 12/16/16 12:40 Temperature 36.8 C Pulse Rate 119 H Respiratory 16 Rate Blood Pressure 183/115 O2 Sat by Pulse 98 Oximetry - CT/Ultrasound CT/Ultrasound Narrative: I reviewed the CT report. No new findings or new injury. - Progress/Reassessment Chief Complaint: Neck Pain/Injury Progress Note-Subjective: 12/16/16 16:06 Will change him to Valuin for muscle relaxation. Needs to get to his f/u. I will have nursing help with this. No new problem from prior. No acute focal neuro deficits. Stable without other complaints at this time. Departure Clinical Impression: Musculoskeletal pain - Departure Disposition: Home self-care Condition: Stable Additional Instructions: Stop current muscle relaxant, I will provide you with a new medicine for your symptoms. No driving with this medication. You need to keep the follow-up with the spine doctor as directed. Return here for numbness, tingling, weakness or if your condition worsens or changes in any way. Referrals: Nereyda Tamayo FNP [Primary Care Provider] - Prescriptions: Diazepam [Valium] 2 mg PO TID PRN #12 tablet PRN Reason: Muscle Pain
[2016-12-16 17:26] VITALS: BP 161/122
== END 2016-12-16 16:05 | disposition home or self-care (01) ==
LOC: ER 12:37
DX: M79.1 Myalgia (principal)

== ENCOUNTER 2016-12-18 18:01 | Emergency (ER) | payer MEDICARE, OTHER ==
[2016-12-18] MEDS ORDERED: PANTOPRAZOLE SODIUM 80 MG in NORMAL SALINE 100 ML IV ONE (18:04)
[2016-12-18] MEDS ORDERED: NORMAL SALINE 1,000 ML IV PRN (18:04)
[2016-12-18] MEDS ORDERED: LORazepam 2 MG/ML DISP.SYRIN IV ONE ×2 (18:12→21:09)
[2016-12-18] MEDS ORDERED: ONDANSETRON HCL/PF 2 MG/ML VIAL IV ONE (18:13)
[2016-12-18] MEDS ORDERED: ONDANSETRON HCL/PF 2 MG/ML VIAL ONE (18:13)
[2016-12-18] MEDS ORDERED: LORazepam 2 MG/ML DISP.SYRIN ONE (18:14)
[2016-12-18 18:37] LABS: Hematocrit 38.6 % (42.0-52.0); Hemoglobin 13.2 gm/dL (13.5-18.0); Mean Cell Volume 90.4 fl (78-100); Mean Corpuscular Hemoglobin 30.9 pg (27-31); Mean Corpuscular Hgb Conc 34.2 g/dl (32-36); Mean Platelet Volume 9.2 fl (6.0-9.5); Neutrophil # 4.4 K/mm3 (1.3-6.0); Platelet Count 239 K/mm3 (150-450); Red Blood Count 4.27 M/mm3 (4.7-6.0); Red Cell Distribution Width 13.3 % (11.5-14.0); White Blood Count 6.8 K/mm3 (4.0-10.5)
[2016-12-18 18:44] LABS: Prothrombin Time (Patient) 10.2 Seconds (9.4-11.4)
[2016-12-18 18:46] LABS: INR 0.98 INR (0.90-1.10); Partial Thrombolplastin Time 27.8 Seconds (24-32)
--- NOTE | 2016-12-18 18:47 | ERNOTE ---
GI Bleeding/Rectal Pain ER Date of Service: 12/18/16 Presenting Symptoms: vomiting blood Time Seen by Provider: 12/18/16 18:10 Source: patient Immunizations: IMMUNIZATION HX Immunizations Up to Date Yes History of Influenza Vaccine Yes Hx Pneumococcal Vaccination Yes Allergies/Adverse Reactions: Allergies No Known Allergies Allergy (Verified 12/18/16 18:08) Home Medications: HOME MEDICATIONS Naproxen 500 mg PO BID #20 tablet. 12/10/16 [Last Taken Unknown] Cyclobenzaprine HCl [Flexeril] 10 mg PO TID PRN #30 tab 12/12/16 [Last Taken Unknown] Diazepam [Valium] 2 mg PO TID PRN #12 tablet 12/16/16 [Last Taken Unknown] Narrative: 61-year-old male presenting to the emergency room for vomiting blood. Patient states that he started vomiting blood and minutes before he was arrived to the emergency room. States that he had emesis 3. Patient states the reason he vomited the first time was because he ate a taco for lunch with a glass of wine and it made him nauseous so he thought if he stuck his finger down his throat and made himself therapeutic Date (Duration): 12/18/16 Timing: constant Quality/Severity: Present: severe Nausea/Vomiting: Present: blood Abdominal Pain: Present: epigastric Review of Systems - Review of Systems Constitutional: Present: no symptoms reported EYE: Present: no symptoms reported ENT: Present: no symptoms reported Respiratory: Present: no symptoms reported Cardiology: Present: no symptoms reported Gastrointestinal/Abdominal: Present: nausea Genitourinary: Present: no symptoms reported Musculoskeletal: Present: no symptoms reported Skin: Present: no symptoms reported Neurological: Present: no symptoms reported Endocrine: Present: no symptoms reported Hematologic/Lymphatic: Present: no symptoms reported Psych: Present: no symptoms reported - Patient's Past Medical History Patient History - Medical: Alcohol Abuse, Anxiety Patient History - Cardiac/Respiratory: COPD Patient History - Cancer: No Hx of Cancer Patient History - Surgical Procedures: Total Knee Replacement, Other Patient History - Other: None - Family History Mother Family History - Medical: Father Family History - Medical: - Social History Living Situations: home Abuse History: No History of abuse Psych History: Hx of Anxiety Does anyone smoke in the home?: No Alcohol Use: heavy Drug Use: marijuana - Immunizations Immunizations Up to Date: Yes Hx Pneumococcal Vaccination: Yes History of Influenza Vaccine: Yes Physical Exam - Physical Exam Narrative: 61-year-old gentleman arrived to the emergency room very distraught after vomiting blood several times. He seemed upset and Stated Repeatedly This Has Never Happened before. He Is Alert and Oriented 4 Lungs Sounds Were Clear Abdomen Was Soft and Nontender He Did Complain of Epigastric Pain with Palpation. Patient is able to protect his airway at this time. General Appearance: Present: wd/wn, alert, severe distress Eye Exam: Normal inspection: bilateral Ears, Nose, Throat: Present: normal ENT inspection, normal pharynx Neck: Present: normal inspection Respiratory: Present: normal breath sounds, no accessory muscle use Cardiovascular/Chest: Present: normal peripheral pulses, tachycardia Peripheral Pulses: N=norm/S=strong/W=weak/B=bound/A=absent: Radial (R): Normal, Radial (L): Normal, Dorsalis-pedis (R): Normal, Dorsalis-pedis (L): Normal Gastrointestinal/Abdominal: Present: soft, other - epigastric pain, rest of abdomen nontender. Absent: distended Back Exam: Present: no vertebral tenderness, other - soft colar present for previous c6 fx Extremity Exam: Present: normal range of motion, no edema Neurological Exam: Present: alert, oriented Skin Exam: Present: normal color, warm/dry Lymphatic Exam: Present: no adenopathy ED Progress - Results and Orders Patient's Lab Results:: I have reviewed the patient's lab results. - Vital Signs Patient's Vital Signs:: I have reviewed the patient's vital signs. Vital Signs: Vital Signs 12/18/16 18:02 Temperature 36.8 C Pulse Rate 114 H Respiratory 20 Rate Blood Pressure 196/98 O2 Sat by Pulse 98 Oximetry - X-Ray X-Ray #1 X-Ray: chest Interpretation: Reviewed by me X-ray Comments: Indication: VOMITING BLOOD Comparison: November 10, 2016 Technique: Chest Single View * Findings: The lungs demonstrate no focal consolidation or acute abnormality. There is no pleural effusion or pneumothorax. Cardiac silhouette and pulmonary vasculature are normal. The osseous structures are within normal limits for age. IMPRESSION: No acute cardiopulmonary process detected Electronically signed by David Lopez M.D.. X-Ray #2 X-Ray: abdomen Interpretation: Reviewed by me X-ray Comments: Technique: Abdomen KUB * Findings: No identifiable free air. Nonobstructed nonspecific bowel gas pattern. No abnormal calcifications. Osseous structures are intact. IMPRESSION: 1. No identifiable acute plain film pathology. Electronically signed by David Lopez M.D.. - Progress/Reassessment Chief Complaint: GI Bleed Progress:: Unchanged Plan - Plan Plan: This provider spoke with our on-call surgeon. Surgeon states that he would be unable to perform banding or cauterizing if needed. He suggested that we transfer this patient via air to the [facility] for further evaluation and treatment. This provider spoke with Dr. More regarding the patient's condition and need for transfer, that provider did accept this patient. Departure Clinical Impression: GI bleeding Qualifiers: GI bleed type/associated pathology: gastrointestinal hemorrhage with hematemesis Qualified Code(s): K92.0 - Hematemesis - Departure Disposition: [facility] Condition: Serious
--- OUTSIDE RECORDS SUMMARY | 2016-12-18 18:58 | XMS REPORT | Continuity of Care Document ---
:1955 Author Organization [facility] ([facility]) Address [address] [place] [address] Phone [phone] Care Team Providers Name Role Phone Unavailable Primary Care Provider Unavailable Source Comments This disclosure is being made pursuant to the Care Everywhere program, applicable federal and state laws, and may not contain all informaitonavailable regarding this patient.[facility] ([facility]) Active Allergies and Adverse Reactions Not on File Current Medications Not on file Active Problems Not on file Most Recent Encounters Date Type Specialty Providers Description 12/18/2016 Hospital Encounter Emergency Medicine Social History Tobacco Use Types Packs/Day Years Used Date Never Assessed Plan of Care Health Maintenance Due Date Last Done Comments HCV Screening 1955 Lipid Disorder Screening 1974 Colonoscopy 2006 Prostate Cancer Screening 2006 Results from Last 3 Months Not on file
[2016-12-18 19:16] LABS: ALT 78 U/L (19-67); AST 53 U/L (0-48); Alkaline Phosphatase * 55 U/L (50-170); Amylase * 66 U/L (25-115); Anion Gap 17.1 mmol/L (6.8-13.8); BUN/Creatinine Ratio 7.5 (9.0-21.6); Bilirubin Direct 0.1 mg/dL (0.0-0.3); Bilirubin, Total 0.8 mg/dL (0.0-1.1); Bilirubin,Indirect 0.7 mg/dL (0.1-0.7); Blood Urea Nitrogen 8 mg/dL (6-23); CK Total * 557 U/L (0-259); CKMB 1.1 ng/mL (0.0-9.0); Calcium * 8.4 mg/dL (7.9-10.9); Carbon Dioxide 23.4 mmol/L (24-32.6); Chloride 107 mmol/L (97-106); Estimated Creat Clear 73.4; Glucose * 124 mg/dL (70-110); Potassium 3.5 mmol/L (3.4-4.6); Sodium 144 mmol/L (132-142); Total Protein 7.3 gm/dL (6.2-8.2)
[2016-12-18 19:17] LABS: Troponin I Less than 0.017 ng/ml (0.00-0.10)
[2016-12-18] MEDS ORDERED: NORMAL SALINE 1,000 ML IV ONE (21:09)
[2016-12-18 21:25] VITALS: BP 164/96
== END 2016-12-18 19:30 | disposition short-term general hospital (02) ==
LOC: ER 18:01
DX: K92.0 Hematemesis (principal)
CPT/HCPCS: 36415; 71010; 74000; 80048; 80076; 82150; 82550; 82553; 84484; 85025; 85610; 85730; 93005; 96365; 96375; 99285; G0481

== ENCOUNTER 2017-01-31 09:48 | Emergency (ER) | payer MEDICARE, OTHER ==
[2017-01-31] MEDS ORDERED: KETOROLAC TROMETHAMINE 60 MG/2 ML VIAL IM ONE ×2 (10:19→10:21)
--- OUTSIDE RECORDS SUMMARY | 2017-01-31 10:54 | XMS REPORT | Continuity of Care Document ---
:1955 Author Organization [facility] [place] [address] Care Team Providers Name Role Phone Unavailable Primary Care Provider Unavailable Source Comments This disclosure is being made pursuant to the [employer] program and maynot contain all information available regarding this patient.[facility] Active Allergies and Adverse Reactions Not on File Current Medications Be aware that medications may not be up to date as of this document. Alwaysverify current medications with the patient. Not on file Active Problems Not on file Most Recent Encounters Date Type Specialty Providers Description 01/08/2017 Telephone Neurosurgery Fatmata Chambers Appointment Social History Tobacco Use Types Packs/Day Years Used Date Never Assessed Plan of Care Health Maintenance Due Date Last Done Comments Hepatitis C Screening 1974 Tetanus/Pertussis (1 - Tdap) 12/14/1975 Colonoscopy 2006 Well Adult Visit 2006 Influenza Immunization (#1) 2016 Zoster Vaccine 60+ 2016 Results from Last 3 Months Not on file
--- OUTSIDE RECORDS SUMMARY | 2017-01-31 10:54 | XMS REPORT | Continuity of Care Document ---
:1955 Author Organization [facility] ([facility]) Address [address] [place] [address] Phone [phone] Care Team Providers Name Role Phone Nereyda Tamayo Primary Care Provider [phone] Source Comments This disclosure is being made pursuant to the Care Everywhere program, applicable federal and state laws, and may not contain all informaitonavailable regarding this patient.[facility] ([facility]) Active Allergies and Adverse Reactions No Known Allergies Current Medications Prescription Sig. Disp. Refills Start Date End Date Status diazePAM 2 mg tablet Take 2 mg by Active mouth 3 times daily as needed (muscle spasm). acetaminophen 325 mg Take 2 tablets 30 tablet 0 12/23/2016 Active tablet (650 mg total) by mouth every 4 hours as needed. amLODIPine 10 mg tablet Take 1 tablet (10 30 tablet 0 12/23/2016 Active mg total) by mouth daily. folic acid 1 mg tablet Take 1 tablet (1 30 tablet 0 12/23/2016 Active mg total) by mouth daily. pantoprazole 40 mg EC Take 1 tablet (40 60 tablet 0 12/23/2016 Active tablet mg total) by mouth 2 times daily. sucralfate 1000 mg Take 1 tablet 28 tablet 0 12/23/2016 Active tablet (1,000 mg total) by mouth before meals and at bedtime. thiamine 100 mg tablet Take 1 tablet 30 tablet 0 12/23/2016 Active (100 mg total) by mouth daily. traMADol 50 mg tablet Take 1 tablet (50 30 tablet 0 12/23/2016 Active mg total) by mouth every 6 hours as needed. Active Problems Patient Care Coordination Note Diagnosis: GI bleed Prognosis: guarded Goal(s) of Care: comfort and relief of symptoms, cure and determine what is wrong Is the patient an inpatient? Yes. How did the team arrive at the current code status? patient Code status is: Full code Patient able to make own decisions?: Yes Disposition and Family Unchanged. Problem Noted Date Alcohol abuse 12/23/2016 COPD (chronic obstructive pulmonary disease) 12/23/2016 Resolved Problems Problem Noted Date Resolved Date Upper GI bleed 12/18/2016 12/23/2016 Most Recent Encounters Date Type Specialty Providers Description 12/24/2016 Nurse Triage Care Coordination Yesenia Pablo Chief Comp: MALVIN Wright caramel cutter machine Follow-up Call 12/18/2016 - Hospital General Care Deven Owen Dx: Upper GI bleed 12/23/2016 Encounter Inpatient - Adult MD Melba (Primary Dx) Allen Izaguirre MD Pena, [place]ahu[place]y, MD Telfah, Mohammad A, MD Kumar, Prerna, MD Immunizations Name Dates Previously Given Next Due Influenza, PF 11/10/2015 Social History Tobacco Use Types Packs/Day Years Used Date Current Every Day Smoker Cigarettes Smokeless Tobacco: Never Used Tobacco Cessation:Ready to Quit: No; Counseling Given: Yes Comments: Last Filed Vital Signs Vital Sign Reading Time Taken Blood Pressure 155/97 12/23/2016 8:45 AM CDT Pulse 91 12/23/2016 8:45 AM CDT Temperature 37.3 C (99.1 F) 12/23/2016 8:45 AM CDT Respiratory Rate 18 12/23/2016 11:00 AM CDT Height 1.778 m (5' 10") 12/21/2016 3:35 PM CDT Weight 77.111 kg (170 lb) 12/21/2016 3:35 PM CDT Body Mass Index 24.39 12/21/2016 3:35 PM CDT Oxygen Saturation 96% 12/23/2016 8:45 AM CDT Plan of Care Health Maintenance Due Date Last Done Comments HCV Screening 1955 Hepatitis B Vaccine (1 of 3 - Primary Series) 1955 Tdap Vaccine 12/14/1967 Lipid Disorder Screening 1974 MMR Vaccine 1974 Td Vaccine 1974 Pneumococcal Vaccine (1 of 1 - PPSV23) 12/14/1975 Colonoscopy 2006 Prostate Cancer Screening 2006 Zoster Vaccine 2016 Influenza Vaccine: Seasonal (Season Ended) 2017 11/10/2015 Procedures from Last 3 Months Procedure Name Priority Date/Time Associated Diagnosis Comments ABSTRACTED BY BILLING Routine 12/19/2016 3:39 Upper GI bleed Results for this STAFF - NW PM CDT Chest pain, procedure are in unspecified type the results section. INTUBAJ ENDOTRACHEAL Routine 12/19/2016 3:34 Upper GI bleed Results for this GERONIMO PX PM CDT procedure are in the results section. Results from Last 3 Months DIFFERENTIAL (12/23/2016 7:08 AM)Only the most recent of3 resultswithin the time period is included. Component Value Range % Neutrophils-Auto Diff 62.2 % Neutrophils-Auto Diff 4000 5968-4096 /MM3 % Lymphocytes-Auto Diff 24.2 % Lymphocytes-Auto Diff 2288 995-1696 /MM3 % Monocytes-Auto Diff 9.3 % Monocytes-Auto Diff 600 130-860 /MM3 % Eosinophils-Auto Diff 2.2 % Eosinophils-Auto Diff 140 40-390 /MM3 % Basophils 1.2 % Basophils-Auto Diff 80 10-136 /MM3 % Immature Granulocytes-Auto Diff 0.9 % Immature Granulocytes-Auto Diff 60 /MM3 Specimen Whole Blood CBC (COMPLETE BLOOD COUNT) (12/23/2016 7:08 AM)Only the most recent of3 resultswithin the time period is included. Component Value Range WBC Count 6.4 3.7-10.5 K/MM3 RBC Count 3.66(L) 4.50-6.20 M/MM3 Hemoglobin 10.9(L) 13.2-17.7 g/dL Hematocrit 33(L) 40-52 % MCV (Mean Corpuscular Volume) 90 82-99 FL MCH (Mean Corpuscular Hemoglobin) 30 25-35 PG MCHC (Mean Corpuscular Hemoglobin Concentration) 33 32-36 % Platelet Count 332 150-400 K/MM3 MPV (Mean Platelet Volume) 9.3(L) 9.4-12.3 FL RBC Dist Width-STD 42.5 35.1-43.9 FL RBC Distrib Width 13.0 9.0-14.5 % Nucleated RBC 0 /100 WBC Specimen Whole Blood MAGNESIUM (12/23/2016 7:08 AM)Only the most recent of2 resultswithin the time period is included. Component Value Range Magnesium 2.6 1.5-2.9 mg/dL Specimen Blood CBC WITH DIFFERENTIAL (12/23/2016 7:08 AM)Only the most recent of3 resultswithin the time period is included. Specimen Whole Blood Narrative The following orders were created for panel order CBC WITH DIFFERENTIAL. Procedure Abnormality Status --------- ------ CBC (COMPLETE BLOOD COUNT)[[id number]] AbnormalFinal result DIFFERENTIAL[[id number]] Final result Please view results for these tests on the individual orders. BASIC METABOLIC PANEL W/ CALCIUM (CHEM 8) (12/23/2016 7:08 AM)Only the most recent of6 resultswithin the time period is included. Component Value Range Sodium 139 135-145 mEq/L Potassium 3.8 3.5-5.0 mEq/L Chloride 103 95-107 mEq/L CO2 21(L) 22-29 mEq/L BUN 4(L) 10-20 mg/dL Creatinine 0.8Comment: 0.6-1.2 mg/dL Creatinine switched to enzymatic method on 12/31/2010.GFR equation switched to IDMS-traceable MDRD equation on 12/31/2010. Calculated GFR values are not valid in clinical settings where serum creatinine is changing. Glucose 101(H)Comment: 65-99 mg/dL The Expert Committee on the Diagnosis and Classification of Diabetes has defined impaired fasting glucose as greater than or equal to 100 mg/dL but less than 126 mg/dL.(Diabetes Care 28 (Suppl 1)S41,2005) Calcium 8.4(L) 8.5-10.5 mg/dL Anion Gap 15 <17 mEq/L Calculated GFR >90 >60 mL/min/1.73 m2 Specimen Blood BLOOD CELL MORPHOLOGY (12/22/2016 6:55 AM) Specimen Whole Blood HEPATIC FUNCTION PANEL (12/22/2016 6:55 AM)Only the most recent of3 resultswithin the time period is included. Component Value Range Albumin 3.4 3.4-4.8 g/dL ALP 51 40-129 U/L Bilirubin Total 0.8 <=1.2 mg/dL Bilirubin, Direct 0.2 0.0-0.2 mg/dL AST 13Comment: 0-40 U/L Adult reference ranges updated on 07/19/13 at 830am ALT 20Comment: 0-41 U/L The upper limit of normal for alanine aminotransferase (ALT) reference ranges for adults is controversial with some authorities recommending limit as low as 30 U/L for males and 19 U/L for females. Th ere is increased incidence of subclinical liver disease (e.g., early steatohepatitis) in patients with ALT values in the range of 31-41 U/L for males and 20-33 U/L for females. ALT values should alway s be interpreted in conjunction with clinical history, physical examination findings, and, if applicable, data from other diagnostic tests. Total Protein 6.3 6.0-8.0 g/dL Specimen Blood LIPASE (12/21/2016 11:46 AM) Component Value Range Lipase 21 13-60 U/L Specimen Blood LACTIC ACID, WHOLE BLOOD ([facility]ICAL [facility]ARE [facility]AT[facility]) (12/20/2016 3:50 AM)Only the most recent of3 resultswithin the time period is included. Component Value Range Lactic Acid, Whole Blood 0.9Comment: 0.5-2.0 mEq/L Glycolate, the principle toxic metabolite of ethylene glycol, can cause artifactual elevation of measured lactate. Specimen Whole Blood CBC (COMPLETE BLOOD COUNT) (12/20/2016 3:50 AM)Only the most recent of2 resultswithin the time period is included. Component Value Range WBC Count 5.5 3.7-10.5 K/MM3 RBC Count 2.97(L) 4.50-6.20 M/MM3 Hemoglobin 9.1(L) 13.2-17.7 g/dL Hematocrit 28(L) 40-52 % MCV (Mean Corpuscular Volume) 94 82-99 FL MCH (Mean Corpuscular Hemoglobin) 31 25-35 PG MCHC (Mean Corpuscular Hemoglobin Concentration) 33 32-36 % Platelet Count 167 150-400 K/MM3 MPV (Mean Platelet Volume) 9.8 9.4-12.3 FL RBC Dist Width-STD 46.6(H) 35.1-43.9 FL RBC Distrib Width 13.6 9.0-14.5 % Nucleated RBC 0 /100 WBC Specimen Whole Blood GLUCOSE ([facility]) (12/20/2016 3:50 AM)Only the most recent of2 resultswithin the time period is included. Component Value Range Glucose, Whole Blood 129(H) 65-99 mg/dL Specimen Whole Blood FL ESOPHAGRAM (12/19/2016 5:36 PM) Impressions Impression: 1. No esophageal leak. 2. Large soft filling defect in the distended mid and distal esophagus consistent with clot. Results of the procedure were given to: PERSON CONTACTED:Dr. Rosenberg DATE: 12/19/2016 TIME CALLED:1722 hours PHONE/PAGER:Covering pager [phone] Narrative Procedure: FL ESOPHAGRAM Clinical indication: Question perforation, intubated with cuffed tube. Technique: Single contrast cine esophagram is performed. The patient is intubated and sedated. We gently placed a Dobbhoff feeding tube into the proximal esophagus and a total of 50 cc of Visipaque was slowly injected through the Dobbhoff feeding tube to opacify the esophagus. The patient was in the semiupright position. During the exam, after the contrast was initially injected, 17 cc of Visipaque was aspirated through the feeding tube with a syringe along with clott. The exam was recorded on video. Fluoroscopy time: 5.09 minutes. Comparison: Chest CT 12/19/2016 performed before the esophagram. Findings: The metal drill press operator image shows an endotracheal tube with the tip above the mackenzie. Mild atelectasis in left lung base, otherwise lungs are clear. In the semi-upright position contrast is injected through the feeding tube and opacifies the proximal esophagus. No leak is demonstrated from the proximal esophagus. Large soft filling defect in the dilated mid and distal esophagus. Gently, the tube was advanced through this large filling defect into the distal esophagus and contrast was in injected. No esophageal leak was demonstrated. Contrast eventually passed into the nondistended stomach and proximal duodenum. Contrast spilled from the piriform sinus into the mid trachea around the cuff of the endotracheal tube. Attempts to suction the contrast around the endotracheal tube were unsuccessful by the nurse. 17 cc of the injected contrast was aspirated along with clot through the feeding tube around the large filling defect proximally and distally. At this time the exam was completed and the feeding tube was removed. Procedure Note Cooper, Incoming Imaging Results - ThuDec 19, 2016 5:55 PM CDT Procedure: FL ESOPHAGRAM Clinical indication: Question perforation, intubated with cuffed tube. Technique: Single contrast cine esophagram is performed. The patient is intubated and sedated. We gently placed a Dobbhoff feeding tube into the proximal esophagus and a total of 50 cc of Visipaque was slowly injected through the Dobbhoff feeding tube to opacify the esophagus. The patient was in the semiupright position. During the exam, after the contrast was initially injected, 17 cc of Visipaque was aspirated through the feeding tube with a syringe along with clott. The exam was recorded on video. Fluoroscopy time: 5.09 minutes. Comparison: Chest CT 12/19/2016 performed before the esophagram. Findings: The metal drill press operator image shows an endotracheal tube with the tip above the mackenzie. Mild atelectasis in left lung base, otherwise lungs are clear. In the semi-upright position contrast is injected through the feeding tube and opacifies the proximal esophagus. No leak is demonstrated from the proximal esophagus. Large soft filling defect in the dilated mid and distal esophagus. Gently, the tube was advanced through this large filling defect into the distal esophagus and contrast was in injected. No esophageal leak was demonstrated. Contrast eventually passed into the nondistended stomach and proximal duodenum. Contrast spilled from the piriform sinus into the mid trachea around the cuff of the endotracheal tube. Attempts to suction the contrast around the endotracheal tube were unsuccessful by the nurse. 17 cc of the injected contrast was aspirated along with clot through the feeding tube around the large filling defect proximally and distally. At this time the exam was completed and the feeding tube was removed. IMPRESSION Impression: 1. No esophageal leak. 2. Large soft filling defect in the distended mid and distal esophagus consistent with clot. Results of the procedure were given to: PERSON CONTACTED: Dr. Rosenberg DATE: 12/19/2016 TIME CALLED: 1722 hours PHONE/PAGER: Covering pager [phone] CT CHEST ABDOMEN W CONTRAST ([id number], [id number]) (12/19/2016 4:39 PM) Impressions Impression: 1. Irregular inflamed thickened wall of the esophagus from T4 inferiorly consistent with the mucosal tear noted on endoscopy. 2. Several punctate foci of air are present anteriorly between the left mainstem bronchus and the esophagus. Whether these are air within the wall of the esophagus or mediastinal air is unclear. The largest is 5 mm in diameter. 3. Increased soft tissue attenuation material posterior of the right mainstem bronchus extending inferiorly along the posterior heart. Whether this is marito fluid within the mediastinum or inflamed edematous mediastinal tissue is unclear. 4. The mixed air and soft tissue attenuation material within the lumen of the esophagus would be consistent with the hematoma noted on endoscopy. 5. Overall although the esophagus is thickened and inflamed it is unclear whether there is marito perforation. Please see subsequent esophagram for further evaluation. 6. Segmental and subsegmental atelectasis in the lower lobes bilaterally with a small right pleural effusion. 7. Endotracheal tube approximates the orifice of the right mainstem bronchus. I informed the nurse caring for the patient in fluoroscopy and recommended withdrawing the tube by approximately 2 cm. Narrative Procedure: CT CHEST ABDOMEN W CONTRAST ([id number], [id number]) Clinical Indication: Suspected Boerhaave Technique: Chest abdominal CT was obtained with delayed imaging through the abdomen. Comparison: Chest radiograph dated 12/18/2016 and 12/19/2016 Findings: Subclavicular/axillary/hilar: Unremarkable. Mediastinal: Beginning at the level of T4 there is irregular thickening of the mucosa of the esophagus with irregular mixed air and soft tissue density material within. This extends inferiorly to just above the level of gastroesophageal junction. There is a cluster of 4 small foci of air between the esophagus in the posterior left mainstem bronchus (images 2-37 to 2-40). The largest measures approximately 2 x 5 x 5 mm. Whether these are within the mediastinum or within the anterior most aspect of the thickened esophageal wall is unclear. Several other crescentic foci of air are present within the esophageal wall more inferiorly (e.g. image 2-59 and 2-66). There is increased thickening of the soft tissue posterior of the right mainstem bronchus to approximately 9 mm. This material has attenuation of 11 Hounsfield unit suggesting fluid and tracks inferiorly along the pericardium posterior of the right ventricle to the level of the diaphragm. Cardiovascular: Unremarkable. Abdomen: Unremarkable. Lungs: Segmental atelectasis/consolidation of the medial basal and posterior basal segments of the right lower lobe and subsegmental consolidation of the inferior lingula and lateral basal segment of the left lower lobe are present. The airways leading to these segments are widely patent. A simple fluid attenuation (1 HU) 1.5 cm dependent depth free-flowing right pleural effusion is present. Chest wall/musculoskeletal: Unremarkable. Lines/tubes: An endotracheal tube terminates at the orifice of the right mainstem bronchus. Procedure Note Cooper, Incoming Imaging Results - ThuDec 19, 2016 5:31 PM CDT Procedure: CT CHEST ABDOMEN W CONTRAST ([id number], [id number]) Clinical Indication: Suspected Boerhaave Technique: Chest abdominal CT was obtained with delayed imaging through the abdomen. Comparison: Chest radiograph dated 12/18/2016 and 12/19/2016 Findings: Subclavicular/axillary/hilar: Unremarkable. Mediastinal: Beginning at the level of T4 there is irregular thickening of the mucosa of the esophagus with irregular mixed air and soft tissue density material within. This extends inferiorly to just above the level of gastroesophageal junction. There is a cluster of 4 small foci of air between the esophagus in the posterior left mainstem bronchus (images 2-37 to 2-40). The largest measures approximately 2 x 5 x 5 mm. Whether these are within the mediastinum or within the anterior most aspect of the thickened esophageal wall is unclear. Several other crescentic foci of air are present within the esophageal wall more inferiorly (e.g. image 2-59 and 2-66). There is increased thickening of the soft tissue posterior of the right mainstem bronchus to approximately 9 mm. This material has attenuation of 11 Hounsfield unit suggesting fluid and tracks inferiorly along the pericardium posterior of the right ventricle to the level of the diaphragm. Cardiovascular: Unremarkable. Abdomen: Unremarkable. Lungs: Segmental atelectasis/consolidation of the medial basal and posterior basal segments of the right lower lobe and subsegmental consolidation of the inferior lingula and lateral basal segment of the left lower lobe are present. The airways leading to these segments are widely patent. A simple fluid attenuation (1 HU) 1.5 cm dependent depth free-flowing right pleural effusion is present. Chest wall/musculoskeletal: Unremarkable. Lines/tubes: An endotracheal tube terminates at the orifice of the right mainstem bronchus. IMPRESSION Impression: 1. Irregular inflamed thickened wall of the esophagus from T4 inferiorly consistent with the mucosal tear noted on endoscopy. 2. Several punctate foci of air are present anteriorly between the left mainstem bronchus and the esophagus. Whether these are air within the wall of the esophagus or mediastinal air is unclear. The largest is 5 mm in diameter. 3. Increased soft tissue attenuation material posterior of the right mainstem bronchus extending inferiorly along the posterior heart. Whether this is marito fluid within the mediastinum or inflamed edematous mediastinal tissue is unclear. 4. The mixed air and soft tissue attenuation material within the lumen of the esophagus would be consistent with the hematoma noted on endoscopy. 5. Overall although the esophagus is thickened and inflamed it is unclear whether there is marito perforation. Please see subsequent esophagram for further evaluation. 6. Segmental and subsegmental atelectasis in the lower lobes bilaterally with a small right pleural effusion. 7. Endotracheal tube approximates the orifice of the right mainstem bronchus. I informed the nurse caring for the patient in fluoroscopy and recommended withdrawing the tube by approximately 2 cm. OTHER PROCEDURE (12/19/2016 3:39 PM) Grazyna Justin MD 12/19/20163:39 PM EGD Upper GI Procedure Note PROCEDURE DATE:12/19/2016 PROCEDURE: Upper gastrointestinal endoscopy Pre-procedure Diagnosis: hematemesis ATTENDING STAFF: Amna Armendariz MD REFERRING PHYSICIAN: This procedure was arranged by Gigi Parra MD. CONSENT FOR OPERATION OR PROCEDUREThe risks, benefits, and alternatives of the procedure and sedation were discussed with the patient in detail today and written consent was obtained. The patient elects to proceed with the procedure and sedation as outlined. PROCEDURAL MEDICATIONS: Propofol per MICU team Oxygen at 2L/min NC Lidocaine spray PHOTOGRAPHS: Yes BIOPSIES: No DESCRIPTION OF PROCEDURE: Prior to proceeding, the patient's name, date of , and procedure to be undertaken was verified at the time out.The patient was then placed in the left lateral decubitus position and was monitored continuously with pulse oximetry, blood pressure monitoring, and direct observations. The oropharynx was adequately anesthetized with Lidocaine spray.Adequate analgesia was achieved. Anendoscope was then placed in the oropharynx and advanced. The vocal cords were visualized and the esophagus was easily intubated. The endoscope was advanced under direct vision to GEJ FINDINGS: Esophagus: Large clot filling two thirds of the esophagus. Large esophageal tear in the distal esophagus with exposed muscle fibers. The endoscope was withdrawn due to high risk of perforation. COMPLICATIONS: There were no complications or problems during the procedure. 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 Amna Hedrick MD Clinical Digital Sales Director Division of Gastroenterology-Hepatology Department of Internal Medicine [facility] ENDOTRACHEAL INTUBATION (12/19/2016 3:34 PM) Lorna Buckley MD 12/19/20163:34 PM Procedure Note ENDOTRACHEAL INTUBATION Endotracheal Intubation Procedure Note Date of Procedure: 12/19/2016 Chucking And Boring Machine Operator(s): Helena Georges Admission Diagnosis: Upper GI Bleed Indication: potential airway compromise Consent: obtained from patient. Pre-airway Assessment: History: Airway history not available Oral Aperture: At least 3 finger widths Neck Flexion: normal Thyromental Distance (sniffing position): At least 3 finger widths Mallampati Airway Class: I (soft palate, uvula, fauces, tonsillar pillars visible) Other factors pertinent to difficult airway: were not found Pre-oxygenation: The patient was pre-oxygenated for > 5 min with 100% oxygen using bag-mask ventilation. The head of bed was at 0 degrees. Position, Pretreatment, Induction, and Paralysis: After pre-oxygenation the patient was placed in the supine sniffing position. The following medications were administered intravenously: fentanyl and etomidate and succinylcholine. Protection: Sellick's maneuver was not performed. Bag-mask ventilation was easy. Placement and Proof: Indirect laryngoscopy was performed with a CMAC 3. Visualization with DL showed Grade 1: Full view of the glottis. External laryngeal manipulation (BURP) was not used. A size 7.5 ETT was advanced through the cords easily.Tracheal placement of the tube was confirmed by capnometry and auscultation of breath sounds bilaterally.The total number of attempts at laryngoscopy (direct and indirect) was 1. The tube was secured at 25 at the teeth/gums. CXR for tube placement is pending. Complications: none Anaesth Called: no Lowest MAP:100 Lowest SpO2:99% VasoRx:none Attending Responsible for Procedure: Dr. Freddie Georges Fellow, F1 Division of Pulmonary and Critical Care Medicine [facility] Delisa Leos MD I saw and examined the patient and discussed with the fellow, agree with the fellows note and was available for the entire procedure. Lorna Sanchez MD, MS Division of Pulmonary, Critical Care and Occupational Medicine Office: [phone] Pager: [phone] CHEST - AP/PA (12/19/2016 2:46 PM)Only the most recent of2 resultswithin the time period is included. Impressions Findings/Impression: Endotracheal tube terminates 4 cm above the mackenzie. The study is otherwise normal. Narrative Procedure: CHEST - AP/PA Technique: Portable AP chest radiograph Comparison: Chest radiograph(s) dated: 12/18/2016. Clinical Indication: Endotracheal tube placed Procedure Note Cooper, Incoming Imaging Results - ThuDec 19, 2016 2:55 PM CDT Procedure: CHEST - AP/PA Technique: Portable AP chest radiograph Comparison: Chest radiograph(s) dated: 12/18/2016. Clinical Indication: Endotracheal tube placed IMPRESSION Findings/Impression: Endotracheal tube terminates 4 cm above the mackenzie. The study is otherwise normal. ENDOSCOPY UPPER (12/19/2016 1:08 PM) Narrative Lupillo Delgado MD 12/19/20161:08 PM ENDOSCOPY UPPER Esophagogastroduodenoscopy (EGD) procedure note Procedure Date: 12/19/2016 Procedure: Esophagogastroduodenoscopy (EGD) Indications: Hematemesis Attending Staff: Lupillo Parra MD Fellow: Malathi More MD Referring Physician: No primary care provider on file. Consent: The risks, benefits, indications, potential complications, and alternatives were explained to the patient and informed consent obtained. Procedural Medications: Midazolam 4 mg IV Fentanyl 50 mcg IV Oral lidocaine Oxygen by nasal canula The procedure sedation was given under my direction from 00:43 to 00:55. Description of Procedure: The patient was placed in the left lateral decubitus position. The patient was monitored continuously with pulse oximetry, blood pressure monitoring, and direct observation. The oropharynx was clear. A bite block was placed. Lidocaine 4% oropharyngeal spray was given. Adequate IV sedation was administered as above. The Olympus gastroscope GIF-H180 was inserted into the mouth and advanced under direct vision to the distal esophagus.A careful inspection was made as the gastroscope was withdrawn. Photographs: Appropriate photodocumentation was obtained. Biopsy/Specimens: none Findings: Esophagus:Upon entering the esophagus, there was a huge blood clot extending from the proximal to distal esophagus. Due to the high risk for aspiration, procedure was aborted. Complications: The patient did tolerate the procedure well and no complications were noted. Impression: Huge blood clot in the esophagus. Procedure aborted due to the high risk for aspiration. Plan: 1. Continue PPI. 2. Continue octreotide. 3. Give a dose of ceftriaxone. 4. Give Reglan or erythromycin. 5. Intubate for airway protection. 6. We will re-scope in the morning. 7. If patient becomes hemodynamically unstable overnight, please contact GI. Signature Malathi More MD, MPH Fellow, Division of Gastroenterology/Hepatology [facility] Teaching Statement: Dr. Lupillo Parra MD was present for the entire procedure Lupillo Russell MD Clinical Digital Sales Director Department of Internal Medicine Division of Gastroenterology and Hepatology [address], [address] [place] [address] Fax [email or web address] C SPINE AP& LATERAL (12/19/2016 10:44 AM) Impressions Findings / Impression: There is multilevel degenerative disease with disc height space loss and loss of the cervical lordosis with focal kyphosis at C3 C4. There is no evidence of fracture. Narrative Procedure: C SPINE AP & LATERAL Clinical Indication: Fall Comparison:None. Procedure Note Cooper, Incoming Imaging Results - ThuDec 19, 2016 10:59 AM CDT Procedure: C SPINE AP & LATERAL Clinical Indication: Fall Comparison: None. IMPRESSION Findings / Impression: There is multilevel degenerative disease with disc height space loss and loss of the cervical lordosis with focal kyphosis at C3 C4. There is no evidence of fracture. TROPONIN T (12/19/2016 7:03 AM) Component Value Range Troponin-T <0.03 <=0.10 ng/mL Specimen Blood PT/INR (PROTHROMBIN TIME/INR) VENOUS (12/19/2016 7:03 AM)Only the most recent of2 resultswithin the time period is included. Component Value Range PT (Prothrombin Time) 10 9-12 secs INR 1.0 <4.0 Specimen Blood GLUCOSE (12/19/2016 7:03 AM) Component Value Range Glucose 171(H)Comment: 65-99 mg/dL The Expert Committee on the Diagnosis and Classification of Diabetes has defined impaired fasting glucose as greater than or equal to 100 mg/dL but less than 126 mg/dL.(Diabetes Care 28 (Suppl 1)S41,2005) The Expert Committee on the Diagnosis and Classification of Diabetes has defined impaired fasting glucose as greater than or equal to 100 mg/dL but less than 126 mg/dL.(Diabetes Care 28 (Suppl 1)S41,2005) Specimen Blood ECG - EKG 12 LEAD (12/18/2016 8:47 PM) Component Value Range ECG SEVERITY - BORDERLINE ECG - VENT. RATE 102 bpm RR 588 ms P-R INTERVAL 144 ms QRSD INTERVAL 104 ms QT INTERVAL 352 ms QTC INTERVAL 459 ms P AXIS 48 degrees QRS AXIS 85 degrees T WAVE AXIS 36 degrees REPORT SINUS TACHYCARDIA BORDERLINE RIGHT AXIS DEVIATION LOW VOLTAGE IN FRONTAL LEADS Interpreting Physician: Shade Magallon MD PTT (PARTIAL THROMBOPLASTIN TIME) (12/18/2016 8:45 PM) Component Value Range PTT 24 22-31 secs Specimen Blood LIVER PANEL (12/18/2016 8:45 PM) Component Value Range Bilirubin Total 0.8 <=1.2 mg/dL AST 42(H)Comment: 0-40 U/L Adult reference ranges updated on 07/19/13 at 830am ALT 55(H)Comment: 0-41 U/L The upper limit of normal for alanine aminotransferase (ALT) reference ranges for adults is controversial with some authorities recommending limit as low as 30 U/L for males and 19 U/L for females. Th ere is increased incidence of subclinical liver disease (e.g., early steatohepatitis) in patients with ALT values in the range of 31-41 U/L for males and 20-33 U/L for females. ALT values should alway s be interpreted in conjunction with clinical history, physical examination findings, and, if applicable, data from other diagnostic tests. ALP 50 40-129 U/L GGT 55 8-61 U/L Albumin 4.1 3.4-4.8 g/dL Total Protein 6.7 6.0-8.0 g/dL Specimen Blood HEMOGLOBIN& CALCULATED HEMATOCRIT - (CRITICAL CARE LABORATORY) (12/18/2016 8: 45 PM) Component Value Range Hemoglobin - CCL 12.7(L) 13.2-17.7 g/dL Hematocrit (Calc) - CCL 39(L) 40-52 % Specimen Whole Blood TYPE AND SCREEN (BLOOD TYPE(ABORH) AND RBC ANTIBODY SCREEN) (12/18/2016 8:45 PM ) Component Value Range ABORH O Positive Specimen Expiration Date 2016-12-21 Antibody Screen Negative Specimen Blood
--- NOTE | 2017-01-31 11:00 | ERNOTE ---
Upper Extremity HPI - Narrative Date of Service: 01/31/17 - General Extremities Pain Location: shoulder: left Time Seen by Provider: 01/31/17 10:06 Source: patient Exam Limitations: no limitations - Immun/Allergies/Home Medications Immunizations: IMMUNIZATION HX Immunizations Up to Date Yes History of Influenza Vaccine Yes Hx Pneumococcal Vaccination Yes Allergies/Adverse Reactions: Allergies Allergy/AdvReac Type Severity Reaction Status Date / Time No Known Allergies Allergy Verified 01/31/17 10:02 Home Medications: HOME MEDICATIONS Cyclobenzaprine HCl [Flexeril] 10 mg PO TID PRN #30 tab 01/31/17 [Last Taken Unknown] - History of Present Illness Narrative: 61-year-old male presenting to the emergency room for left shoulder pain. States it started yesterday morning when he woke up and has progressively gotten worse. Patient states he did take lgne-zby-ymqaxcf pain medication that has not given him any relief. Date (Duration): 01/31/17 Occurred: yesterday Location of Incident: home Severity: mild Method of Injury: Reports: unknown Reason for Fall: Reports: unknown Loss of Consciousness: Reports: no loss of consciousness Associated Symptoms: Denies: tingling, weakness Other Injuries: Reports: none Review of Systems - Review of Systems Constitutional: Present: no symptoms reported EYE: Present: no symptoms reported ENT: Present: no symptoms reported Respiratory: Present: no symptoms reported Cardiology: Present: no symptoms reported Gastrointestinal/Abdominal: Present: no symptoms reported Genitourinary: Present: no symptoms reported Musculoskeletal: Present: See HPI, muscle pain, muscle stiffness, joint pain Skin: Present: no symptoms reported Neurological: Present: no symptoms reported Endocrine: Present: no symptoms reported Hematologic/Lymphatic: Present: no symptoms reported Psych: Present: no symptoms reported All Other Systems: All systems neg except as marked - Patient's Past Medical History Patient History - Medical: Alcohol Abuse, Anxiety Patient History - Cardiac/Respiratory: COPD Patient History - Cancer: No Hx of Cancer Patient History - Surgical Procedures: Total Knee Replacement, Other Patient History - Other: None - Family History Mother Family History - Medical: Father Family History - Medical: - Social History Living Situations: other Abuse History: No History of abuse Psych History: Hx of Anxiety Does anyone smoke in the home?: No Smoking Status: Former smoker Do you dip or chew tobacco: Yes Alcohol Use: heavy Drug Use: marijuana - Immunizations Immunizations Up to Date: Yes Hx Pneumococcal Vaccination: Yes History of Influenza Vaccine: Yes Physical Exam - Physical Exam Narrative: Patient has pain and swelling along his trapezius muscle on the left side between his neck and shoulder. Patient does have normal range of motion but is tender with range of motion. General Appearance: Present: wd/wn, alert, no apparent distress Eye Exam: Normal inspection: bilateral Ears, Nose, Throat: Present: normal ENT inspection Neck: Present: normal inspection, nontender, full range of motion Respiratory: Present: no respiratory distress, normal breath sounds, no accessory muscle use, lungs clear Cardiovascular/Chest: Present: regular rate, rhythm, no murmur, normal peripheral pulses Peripheral Pulses: N=norm/S=strong/W=weak/B=bound/A=absent: Radial (R): Normal, Radial (L): Normal Gastrointestinal/Abdominal: Present: normal bowel sounds, nontender, nondistended, soft Back Exam: Present: no vertebral tenderness, muscle spasm Extremity Exam: Present: normal range of motion, no edema Neurological Exam: Present: alert, oriented, normal mood/affect, no motor/ sensory deficits Skin Exam: Present: normal color, warm/dry Lymphatic Exam: Present: no adenopathy ED Progress - Vital Signs Patient's Vital Signs:: I have reviewed the patient's vital signs. Vital Signs: Vital Signs 01/31/17 09:56 Temperature 36.5 C Pulse Rate 103 H Respiratory 18 Rate Blood Pressure 157/97 O2 Sat by Pulse 96 Oximetry - Progress/Reassessment Chief Complaint: Shoulder Injury/Pain Progress:: Improved Plan - Plan Plan: patient appears to have a strain of his left trap. I feel he would benefit from some physical therapy or outpatient MRI to determine cause. Patient has a significant PMH r/t pain and injuries. patient also has some separation of his ACM joint to his left shoulder/ He has been advised to follow up with his ortho. patient given information to contact him with on Thursday. Departure Clinical Impression: Muscle spasm Strain of left shoulder Qualifiers: Encounter type: initial encounter Qualified Code(s): S46.912A - Strain of unspecified muscle, fascia and tendon at shoulder and upper arm level, left arm , initial encounter Acromioclavicular joint separation Qualifiers: Encounter type: initial encounter Laterality: left Qualified Code(s): S43.102A - Unspecified dislocation of left acromioclavicular joint, initial encounter - Departure Disposition: Home Follow Up Needed Condition: Stable Instructions: Muscle Strain, Zuzj-xz-Gzeb, Acromioclavicular Separation With [facility] Additional Instructions: Continue any previous home medications as directed. Primary care physician in the next 2-3 days related to this injury. He may take onnf-wiz-kworfde pain medications as directed. Return to the emergency room if pain is unable to be controlled with medication Referrals: Nereyda Tamayo FNP [Primary Care Provider] - Deion Jefferson MD [Staff Physician] - Prescriptions: Cyclobenzaprine HCl [Flexeril] 10 mg PO TID PRN #30 tab PRN Reason: MUSCLE SPASMS
[2017-01-31 12:05] VITALS: BP 121/82
== END 2017-01-31 11:45 | disposition home or self-care (01) ==
LOC: ER 09:48
DX: M62.838 Other muscle spasm (principal); S46.912A Strain of unspecified muscle, fascia and tendon at shoulder and upper arm level, left arm, initial encounter; S43.102A Unspecified dislocation of left acromioclavicular joint, initial encounter

== ENCOUNTER 2017-02-06 22:09 | Emergency (ER) | payer MEDICARE, OTHER ==
[2017-02-06] MEDS ORDERED: LIDOCAINE HCL 20 ML UDC PO ONE (22:25)
[2017-02-06] MEDS ORDERED: SUCRALFATE 1 G/10 ML UDC PO ONE (22:25)
[2017-02-06] MEDS ORDERED: MAG HYDROX/ALUMINUM HYD/SIMETH 30 ML UDC PO ONE (22:25)
--- NOTE | 2017-02-06 22:32 | ERNOTE ---
Medical Problem HPI - Narrative Date of Service: 02/06/17 - General Chief Complaint: Foreign Body Time Seen by Provider: 02/06/17 22:26 Source: patient Exam Limitations: no limitations - Immun/Allergies/Home Medications Immunizations: IMMUNIZATION HX Immunizations Up to Date Yes History of Influenza Vaccine Yes Hx Pneumococcal Vaccination Yes Allergies/Adverse Reactions: Allergies No Known Allergies Allergy (Verified 02/06/17 22:17) Home Medications: HOME MEDICATIONS Cyclobenzaprine HCl [Flexeril] 10 mg PO TID PRN #30 tab 01/31/17 [Last Taken Unknown] Acetaminophen [Tylenol] 500 mg PO PRN 02/06/17 [Last Taken Unknown] Pantoprazole Sodium [Protonix] 40 mg PO DAILY #30 tab 02/06/17 [Last Taken Unknown] Sucralfate [Carafate Suspension] 1 g PO QID #200 ml 02/06/17 [Last Taken Unknown ] - History of Present History Narrative: EATING STEAK EARLIER AND DRINKING HIS USUAL WHISKEY, SAYS IT FELT LIKE A PIECE OF STEAK GOT CAUGHT. HE SAYS HE VOMITED SINCE INCLUDING REPORTED A "CUP OF BLOOD ". STATES IT STILL FEELS LIKE SOMETHING IS STUCK THOUGH HE HAS NO PROBLEM WITH HANDLING HIS SECRETIONS. HE REPORTS A HISTORY OF PAST SIMILAR EPISODES. HE WAS SENT TO [facility] 12/18/[address] CHEST AND ESOPHAGRAM THAT SHOWED A ESOPHAGEAL MUCOSAL TEAR WITH NO ACTIVE BLEEDING. HE WAS DISCHARGED ON CARAFATE AND PROTONIX THAT HE NO LONGER TAKES. HE ADMITS TO CONTINUED ETOH ABUSE HE HAS A HX OF CHRONIC ALCOHOL ABUSE AND ANXIETY . Review of Systems - Review of Systems Constitutional: Present: See HPI EYE: Present: no symptoms reported ENT: Present: no symptoms reported Respiratory: Present: no symptoms reported Cardiology: Present: no symptoms reported Gastrointestinal/Abdominal: Present: See HPI, nausea, vomiting Genitourinary: Present: no symptoms reported Musculoskeletal: Present: no symptoms reported Skin: Present: no symptoms reported Neurological: Present: no symptoms reported Endocrine: Present: no symptoms reported Hematologic/Lymphatic: Present: no symptoms reported Psych: Present: anxiety All Other Systems: All systems neg except as marked - Patient's Past Medical History Patient History - Medical: Alcohol Abuse, Anxiety, GERD, Other - EOPHAGEAL MUCOSAL TEAR. Patient History - Cardiac/Respiratory: COPD Patient History - Cancer: No Hx of Cancer Patient History - Surgical Procedures: EGD, Total Knee Replacement, Other Patient History - Other: None - Family History Mother Family History - Medical: Father Family History - Medical: - Social History Living Situations: other Abuse History: No History of abuse Psych History: Hx of Anxiety Does anyone smoke in the home?: No Smoking Status: Current some day smoker Do you dip or chew tobacco: Yes Alcohol Use: heavy Drug Use: marijuana - Immunizations Immunizations Up to Date: Yes Hx Pneumococcal Vaccination: Yes History of Influenza Vaccine: Yes Physical Exam - Physical Exam General Appearance: Present: wd/wn, alert, mild distress - DISHEVELED 61 YO MAN WHO IS A & O THOUGH INTOXICATED. NAD. Ears, Nose, Throat: Present: normal ENT inspection - NO EVIDENCE OF CURRENT OR RECENT BLEEDING AND NO POST PHARYNGEAL F.B. AND NO SPITTING OR VOMITING OF SALIVA AND MEDS IN THE ER Neck: Present: normal inspection, nontender Respiratory: Present: no respiratory distress, normal breath sounds, no accessory muscle use, chest nontender, lungs clear Cardiovascular/Chest: Present: regular rate, rhythm, no murmur, normal peripheral pulses Gastrointestinal/Abdominal: Present: nontender, soft Neurological Exam: Present: alert, oriented Skin Exam: Present: normal color. Absent: jaundice ED Progress - Vital Signs Vital Signs: Vital Signs 02/06/17 22:10 Temperature 36.7 C Pulse Rate 97 Respiratory 16 Rate Blood Pressure 153/92 O2 Sat by Pulse 97 Oximetry - Progress/Reassessment Chief Complaint: Foreign Body Progress:: Re-examined - TOLERATED THE GI COCKTAIL WITH CARAFATE AND WATER AFTERWARDS. SINCE LAST SEEN HAS ALSO HAD A GLASS OF ICE WATER WITHOUT PROBLEMS. Plan - Plan Plan: D/W DR FARRELL , STATES DR MONTANA WILL BE BACK ON THURSDAY AND PT. CAN CALL THE OFFICE TO ARRANGE REPEAT EGD. Departure - Departure Clinical Impression: Esophageal bleed, non-variceal, History of ETOH abuse Disposition: Home Follow Up Needed Condition: Fair Instructions: Alcohol Use Disorder, Esophagogastroduodenoscopy, Food Choices for Gastroesophageal Reflux Disease, Adult, Klmi-pb-Ojhi, Esophageal Spasm, Finding Treatment for Addiction, Esophageal Stricture Additional Instructions: CONTACT THE SURGEONS OFFICE ( DR. FARRELL AND RUBÉN) FIRST THING THURSDAY TO SEE ABOUT GETTING IN FOR A REPEAT STUDY OF YOUR ESOPHAGUS. TAKE THE MEDICATION DIRECTED. SOFT FOODS AND LIQUIDS ONLY BUT STOP DRINKING ALCOHOL. LOOK INTO AA OR ALCOHOL REHAB PROGRAMS ( [place] = [phone]) . RETURN IF WORSE. Referrals: Angel Farrell MD [Associate] - Prescriptions: Pantoprazole Sodium [Protonix] 40 mg PO DAILY #30 tab Sucralfate [Carafate Suspension] 1 g PO QID #200 ml
[2017-02-06 22:51] LABS: Hemoglobin 13.9 gm/dL (13.5-18.0); Mean Cell Volume 90.7 fl (78-100); Mean Corpuscular Hgb Conc 33.1 g/dl (32-36); Mean Platelet Volume 8.8 fl (6.0-9.5); Neutrophil # 2.4 K/mm3 (1.3-6.0); Neutrophil % 52.8 % (42-75.0); Platelet Count 144 K/mm3 (150-450); Red Blood Count 4.63 M/mm3 (4.7-6.0); Red Cell Distribution Width 13.1 % (11.5-14.0); White Blood Count 4.5 K/mm3 (4.0-10.5)
--- OUTSIDE RECORDS SUMMARY | 2017-02-06 23:00 | XMS REPORT | Continuity of Care Document ---
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 Follow-up Call 12/18/2016 - Hospital General Care [...] of 1 - PPSV23) 12/14/1975 Colonoscopy 2006 Zoster Vaccine 2016 Influenza Vaccine: Seasonal [...] Neutrophils-Auto Diff 62.2 % Neutrophils-Auto Diff [id number] /MM3 % Lymphocytes-Auto Diff 24.2 % Lymphocytes-Auto Diff [phone] /MM3 % Monocytes-Auto Diff 9.3 % Monocytes-Auto [...] Abnormality Status --------- ------ CBC (COMPLETE BLOOD COUNT)[[id number]] AbnormalFinal result DIFFERENTIAL[[id number]] Final result Please view results for these [...] DATE: 12/19/2016 TIME CALLED:1722 hours PHONE/PAGER:Covering pager [phone] Narrative Procedure: FL ESOPHAGRAM Clinical indication: Question [...] 12/19/2016 performed before the esophagram. Findings: The athletic scout image shows an endotracheal tube with the [...] 12/19/2016 performed before the esophagram. Findings: The athletic scout image shows an endotracheal tube with the [...] TIME CALLED: 1722 hours PHONE/PAGER: Covering pager [phone] CT CHEST ABDOMEN W CONTRAST ([id number], [id number]) (12/19/2016 4:39 PM) Impressions Impression: 1. Irregular [...] Narrative Procedure: CT CHEST ABDOMEN W CONTRAST ([id number], [id number]) Clinical Indication: Suspected Boerhaave Technique: Chest abdominal [...] CDT Procedure: CT CHEST ABDOMEN W CONTRAST ([id number], [id number]) Clinical Indication: Suspected Boerhaave Technique: Chest abdominal [...] consult cardio-thorathic surgery. Amna Hedrick MD Clinical Aluminum Fabrication Supervisor Division of Gastroenterology-Hepatology Department of Internal Medicine [facility] ENDOTRACHEAL INTUBATION (12/19/2016 3:34 PM) Lorna Buckley MD 12/19/20163:34 PM Procedure Note ENDOTRACHEAL INTUBATION Endotracheal Intubation Procedure Note Date of Procedure: 12/19/2016 Ctc Operator(s): Delisa Georges Admission Diagnosis: Upper GI Bleed Indication: [...] Division of Pulmonary and Critical Care Medicine [facility] Delisa Leos MD I saw and examined the patient and discussed with the fellow, agree with the fellows note and was available for the entire procedure. Lorna Sanchez MD, MS Division of Pulmonary, Critical Care and Occupational Medicine Office: [phone] Pager: [phone] CHEST - AP/PA (12/19/2016 2:46 PM)Only the [...] otherwise normal. ENDOSCOPY UPPER (12/19/2016 1:08 PM) Lupillo Booth MD 12/19/20161:08 PM ENDOSCOPY UPPER Esophagogastroduodenoscopy (EGD) [...] More MD, MPH Fellow, Division of Gastroenterology/Hepatology [facility] Teaching Statement: Dr. Lupillo Parra MD was present for the entire procedure Lupillo Russell MD Clinical Aluminum Fabrication Supervisor Department of Internal Medicine Division of Gastroenterology and Hepatology [address], [address] [place] [address] Fax [email or web address] C SPINE AP& LATERAL (12/19/2016 10:44 [...]
--- OUTSIDE RECORDS SUMMARY | 2017-02-06 23:00 | XMS REPORT | Continuity of Care Document ---
:1955 Author Organization [facility] [place] [address] Care Team Providers Name Role Phone Unavailable Primary Care Provider Unavailable Source Comments This disclosure is being made pursuant to the [employer] program and maynot contain all information available regarding this patient.[facility] Active Allergies and Adverse Reactions Not on [...]
[2017-02-06 23:04] LABS: Prothrombin Time (Patient) 9.4 Seconds (9.4-11.4)
[2017-02-06 23:05] LABS: INR 0.9 INR (0.90-1.10)
[2017-02-06] MEDS ORDERED: PANTOPRAZOLE SODIUM 40 MG in NORMAL SALINE 100 ML IV ONE (23:52)
[2017-02-06] MEDS ORDERED: PANTOPRAZOLE SODIUM 40 MG/100 ML PIGGYBACK IV ONE (23:55)
[2017-02-07 01:27] VITALS: BP 159/68
== END 2017-02-07 00:57 | disposition home or self-care (01) ==
LOC: ER 22:09
DX: K22.8 Other specified diseases of esophagus (principal); Z72.0 Tobacco use
CPT/HCPCS: 36415; 85025; 85610; 93005; 96365; 99284; G0481

== ENCOUNTER 2017-02-07 10:55 | Emergency (ER) | payer MEDICARE, OTHER ==
[2017-02-07] MEDS ORDERED: KETOROLAC TROMETHAMINE 60 MG/2 ML VIAL IM ONE ×2 (11:05→11:09)
--- OUTSIDE RECORDS SUMMARY | 2017-02-07 11:21 | XMS REPORT | Continuity of Care Document ---
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 Follow-up Call 12/18/2016 - Hospital General Care [...] Neutrophils-Auto Diff 62.2 % Neutrophils-Auto Diff [phone] /MM3 % Lymphocytes-Auto Diff 24.2 % Lymphocytes-Auto Diff [phone] /MM3 % Monocytes-Auto Diff 9.3 % Monocytes-Auto [...] Abnormality Status --------- ------ CBC (COMPLETE BLOOD COUNT)[[id number]] AbnormalFinal result DIFFERENTIAL[[id number]] Final result Please view results for these [...] DATE: 12/19/2016 TIME CALLED:1722 hours PHONE/PAGER:Covering pager [phone] Narrative Procedure: FL ESOPHAGRAM Clinical indication: Question [...] 12/19/2016 performed before the esophagram. Findings: The fur farmer image shows an endotracheal tube with the [...] 12/19/2016 performed before the esophagram. Findings: The fur farmer image shows an endotracheal tube with the [...] TIME CALLED: 1722 hours PHONE/PAGER: Covering pager [phone] CT CHEST ABDOMEN W CONTRAST ([id number], [id number]) (12/19/2016 4:39 PM) Impressions Impression: 1. Irregular [...] Narrative Procedure: CT CHEST ABDOMEN W CONTRAST ([id number], [id number]) Clinical Indication: Suspected Boerhaave Technique: Chest abdominal [...] CDT Procedure: CT CHEST ABDOMEN W CONTRAST ([id number], [id number]) Clinical Indication: Suspected Boerhaave Technique: Chest abdominal [...] consult cardio-thorathic surgery. Amna Hedrick MD Clinical Yellow Pages Space Salesperson Division of Gastroenterology-Hepatology Department of Internal Medicine [facility] ENDOTRACHEAL INTUBATION (12/19/2016 3:34 PM) Lorna Buckley MD 12/19/20163:34 PM Procedure Note ENDOTRACHEAL INTUBATION Endotracheal Intubation Procedure Note Date of Procedure: 12/19/2016 Supervisor Pig Machine(s): Delisa Georges Admission Diagnosis: Upper GI Bleed [...] Division of Pulmonary and Critical Care Medicine [facility] Delisa Leos MD I saw and examined the patient and discussed with the fellow, agree with the fellows note and was available for the entire procedure. Lorna Sanchez MD, MS Division of Pulmonary, Critical Care and Occupational Medicine Office: [phone] Pager: [phone] CHEST - AP/PA (12/19/2016 2:46 PM)Only the [...] More MD, MPH Fellow, Division of Gastroenterology/Hepatology [facility] Teaching Statement: Dr. Lupillo Parra MD was present for the entire procedure Lupillo Russell MD Clinical Yellow Pages Space Salesperson Department of Internal Medicine Division of Gastroenterology and Hepatology [address], [address] [place] [address] Fax [email or web address] C SPINE AP& LATERAL (12/19/2016 10:44 AM) [...]
--- OUTSIDE RECORDS SUMMARY | 2017-02-07 11:21 | XMS REPORT | Continuity of Care Document ---
:1955 Author Organization [facility] [place] [address] Care Team Providers Name Role Phone Unavailable Primary Care Provider Unavailable Source Comments This disclosure is being made pursuant to the [employer] program and maynot contain all information available regarding this patient.[facility] Active Allergies and Adverse Reactions Not on [...]
[2017-02-07 11:23] LABS: Hemoglobin 13.3 gm/dL (13.5-18.0); Mean Cell Volume 88.4 fl (78-100); Mean Corpuscular Hemoglobin 30.2 pg (27-31); Mean Corpuscular Hgb Conc 34.1 g/dl (32-36); Mean Platelet Volume 8.9 fl (6.0-9.5); Neutrophil % 81.1 % (42-75.0); Platelet Count 120 K/mm3 (150-450); Red Blood Count 4.41 M/mm3 (4.7-6.0); Red Cell Distribution Width 12.8 % (11.5-14.0); White Blood Count 6.2 K/mm3 (4.0-10.5)
[2017-02-07 11:34] LABS: Prothrombin Time (Patient) 9.8 Seconds (9.4-11.4)
[2017-02-07 11:40] LABS: ALT 42 U/L (19-67); AST 49 U/L (0-48); Albumin * 4.1 gm/dl (3.4-5.0); Alkaline Phosphatase * 62 U/L (50-170); Anion Gap 17.9 mmol/L (6.8-13.8); BUN/Creatinine Ratio 12.1 (9.0-21.6); Bilirubin, Total 2.6 mg/dL (0.0-1.1); Blood Urea Nitrogen 11 mg/dL (6-23); Ca. Corrected For Albumin 8.4 mg/dL (8.4-10.2); Calcium * 8.8 mg/dL (7.9-10.9); Carbon Dioxide 24.2 mmol/L (24-32.6); Chloride 97 mmol/L (97-106); Glucose * 149 mg/dL (70-110); Potassium 4.1 mmol/L (3.4-4.6); Sodium 135 mmol/L (132-142); Total Protein 7.6 gm/dL (6.2-8.2)
[2017-02-07 11:41] LABS: Troponin I Less than 0.017 ng/ml (0.00-0.10)
[2017-02-07 11:44] LABS: INR 0.94 INR (0.90-1.10); Partial Thrombolplastin Time 31.7 Seconds (24-32)
[2017-02-07] MEDS ORDERED: ORPHENADRINE CITRATE 30 MG/ML VIAL IM ONE (11:56)
[2017-02-07] MEDS ORDERED: ORPHENADRINE CITRATE 30 MG/ML VIAL ONE (11:57)
[2017-02-07] MEDS ORDERED: MAG HYDROX/ALUMINUM HYD/SIMETH 30 ML UDC PO ONE (12:20)
[2017-02-07] MEDS ORDERED: SUCRALFATE 1 G/10 ML UDC PO ONE (12:20)
[2017-02-07] MEDS ORDERED: LIDOCAINE HCL 20 ML UDC PO ONE (12:20)
--- NOTE | 2017-02-07 12:44 | ERNOTE ---
Chest Pain/Cardiac HPI Date of Service: 02/07/17 Chief Complaint: Chest Pain Time Seen by Provider: 02/07/17 11:09 Source: patient Exam Limitations: no limitations Immunizations: IMMUNIZATION HX Immunizations Up to Date Yes History of Influenza Vaccine Yes Hx Pneumococcal Vaccination Yes Allergies/Adverse Reactions: Allergies No Known Allergies Allergy (Verified 02/07/17 11:07) Home Medications: HOME MEDICATIONS Cyclobenzaprine HCl [Flexeril] 10 mg PO TID PRN #30 tab 01/31/17 [Last Taken Unknown] Acetaminophen [Tylenol] 500 mg PO PRN 02/06/17 [Last Taken Unknown] Pantoprazole Sodium [Protonix] 40 mg PO DAILY #30 tab 02/06/17 [Last Taken Unknown] Sucralfate [Carafate Suspension] 1 g PO QID #200 ml 02/06/17 [Last Taken Unknown ] Tramadol HCl [Rybix Odt] 50 mg PO QID #30 tab.rapdis 02/07/17 [Last Taken Unknown] Narrative: c/o sharp upper left chest pain , onset yesterday Timing: constant, getting worse Severity/Quality: moderate, sharp, tightness Location: left chest Chest Pain Radiation: no radiation Activities at Onset: none Modifying Factors - Improves: Present: nothing Modifying Factors - Worsens: Present: movement Nitro Today/Relief: no nitro taken today Aspirin Treatment Today: no aspirin today Associated Symptoms: Present: denies symptoms Prior Chest Pain/Cardiac Workup: Reports: prior chest pain, non-cardiac Review of Systems - Review of Systems Constitutional: Present: no symptoms reported EYE: Present: no symptoms reported ENT: Present: no symptoms reported Respiratory: Present: no symptoms reported Cardiology: Present: no symptoms reported Gastrointestinal/Abdominal: Present: no symptoms reported Genitourinary: Present: no symptoms reported Musculoskeletal: Present: back pain, muscle pain, muscle stiffness Skin: Present: no symptoms reported Neurological: Present: no symptoms reported Endocrine: Present: no symptoms reported Hematologic/Lymphatic: Present: no symptoms reported Psych: Present: no symptoms reported All Other Systems: All systems neg except as marked - Patient's Past Medical History Patient History - Medical: Alcohol Abuse, Anxiety, GERD, Other Patient History - Cardiac/Respiratory: COPD Patient History - Cancer: No Hx of Cancer Patient History - Surgical Procedures: EGD, Total Knee Replacement, Other Patient History - Other: None - Family History Family History:: no untoward family reactions to anesthesia, no familial bleeding tendencies, no family history of clotting disorders, no family history of premature - Family History Mother Family History - Medical: Family History - Cardiac/Respiratory: No pertinent hx Family History - Cancer: No pertinent family hx Father Family History - Medical: Family History - Cardiac/Respiratory: No pertinent hx Family History - Cancer: No pertinent family hx - Social History Living Situations: home Abuse History: No History of abuse Psych History: Hx of Anxiety Does anyone smoke in the home?: No Smoking Status: Former smoker Do you dip or chew tobacco: Yes Patient requests Smoking Cessation Consult: No Initiate information on Smoking Cessation: No Alcohol Use: heavy Drug Use: marijuana - Immunizations Immunizations Up to Date: Yes Hx Pneumococcal Vaccination: Yes History of Influenza Vaccine: Yes Physical Exam - Physical Exam General Appearance: Present: alert, mild distress Eye Exam: Normal inspection: bilateral, PERRL: bilateral, EOMI: bilateral Ears, Nose, Throat: Present: normal ENT inspection Neck: Present: normal inspection, nontender Respiratory: Present: no respiratory distress, normal breath sounds, no accessory muscle use, chest nontender, lungs clear Cardiovascular/Chest: Present: regular rate, rhythm, no murmur, normal peripheral pulses, other - reproducible chest pain in anterior chest wall Peripheral Pulses: N=norm/S=strong/W=weak/B=bound/A=absent: Carotid (R): Normal , Carotid (L): Normal, Radial (R): Normal, Radial (L): Normal, Femoral (R): Normal, Femoral (L): Normal, Dorsalis-pedis (R): Normal, Dorsalis-pedis (L): Normal Gastrointestinal/Abdominal: Present: normal bowel sounds, nontender, nondistended, soft, no organomegaly Back Exam: Present: normal inspection, normal range of motion, no CVA tenderness Extremity Exam: Present: normal inspection, non-tender, normal range of motion, no edema Neurological Exam: Present: alert, oriented, normal mood/affect, no motor/ sensory deficits DTR: N=norm/NB=norm/brisk/A=abs/DD=dull/dimin/HC=hyperactive: Bicep (R): Normal , Bicep (L): Normal, Tricep (R): Normal, Tricep (L): Normal, Knee (R): Normal, Knee (L): Normal, Ankle (R): Normal, Ankle (L): Normal Skin Exam: Present: normal color, warm/dry ED Progress - Date and Time Seen: Date and Time: 02/07/17 12:35 patient condition improved, discussed labs and xrays with patient to be dismissed,to f/u with fp - Results and Orders Patient's Lab Results:: I have reviewed the patient's lab results. - Vital Signs Patient's Vital Signs:: I have reviewed the patient's vital signs. Vital Signs: Vital Signs 02/07/17 02/07/17 02/07/17 11:02 11:07 11:47 Temperature 37.1 C Pulse Rate 116 H 101 H 101 H Respiratory 18 10 L Rate Blood Pressure 176/100 158/105 O2 Sat by Pulse 98 97 Oximetry - EKG EKG: NSR - Progress/Reassessment Chief Complaint: Chest Pain Progress:: Improved - Transfer of Care Expected Disposition: Discharge Departure - Departure Clinical Impression: Musculoskeletal pain Disposition: Home self-care Condition: Fair Instructions: Chest Wall Pain Referrals: Nereyda Tamayo FNP [Primary Care Provider] - Prescriptions: Tramadol HCl [Rybix Odt] 50 mg PO QID #30 tab.dl
[2017-02-07 12:55] VITALS: BP 167/103
== END 2017-02-07 12:56 | disposition home or self-care (01) ==
LOC: ER 10:55
DX: M79.1 Myalgia (principal); F41.9 Anxiety disorder, unspecified; K21.9 Gastro-esophageal reflux disease without esophagitis; J44.9 Chronic obstructive pulmonary disease, unspecified

== ENCOUNTER 2017-02-08 19:00 | Emergency (ER) | payer MEDICARE, OTHER ==
--- OUTSIDE RECORDS SUMMARY | 2017-02-08 20:01 | XMS REPORT | Continuity of Care Document ---
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 Follow-up Call 12/18/2016 - Hospital General Care [...] Neutrophils-Auto Diff 62.2 % Neutrophils-Auto Diff [id number] /MM3 % Lymphocytes-Auto Diff 24.2 % Lymphocytes-Auto Diff [id number] /MM3 % Monocytes-Auto Diff 9.3 % Monocytes-Auto [...] Abnormality Status --------- ------ CBC (COMPLETE BLOOD COUNT)[[id number]] AbnormalFinal result DIFFERENTIAL[[id number]] Final result Please view results for these [...] DATE: 12/19/2016 TIME CALLED:1722 hours PHONE/PAGER:Covering pager [phone] Narrative Procedure: FL ESOPHAGRAM Clinical indication: Question [...] 12/19/2016 performed before the esophagram. Findings: The poultry farmworker image shows an endotracheal tube with the [...] 12/19/2016 performed before the esophagram. Findings: The poultry farmworker image shows an endotracheal tube with the [...] TIME CALLED: 1722 hours PHONE/PAGER: Covering pager [phone] CT CHEST ABDOMEN W CONTRAST ([id number], [id number]) (12/19/2016 4:39 PM) Impressions Impression: 1. Irregular [...] Narrative Procedure: CT CHEST ABDOMEN W CONTRAST ([id number], [id number]) Clinical Indication: Suspected Boerhaave Technique: Chest abdominal [...] CDT Procedure: CT CHEST ABDOMEN W CONTRAST ([id number], [id number]) Clinical Indication: Suspected Boerhaave Technique: Chest abdominal [...] consult cardio-thorathic surgery. Amna Hedrick MD Clinical Behavioral Health Consultant Division of Gastroenterology-Hepatology Department of Internal Medicine [facility] ENDOTRACHEAL INTUBATION (12/19/2016 3:34 PM) Lorna Buckley MD 12/19/20163:34 PM Procedure Note ENDOTRACHEAL INTUBATION Endotracheal Intubation Procedure Note Date of Procedure: 12/19/2016 Production Leader(s): Delisa Georges Admission Diagnosis: Upper GI Bleed [...] Division of Pulmonary and Critical Care Medicine [facility] and [facility] Delisa Leos MD I saw and examined the patient and discussed with the fellow, agree with the fellows note and was available for the entire procedure. Lorna Sanchez MD, MS Division of Pulmonary, Critical Care and Occupational Medicine Office: [phone] Pager: [phone] CHEST - AP/PA (12/19/2016 2:46 PM)Only the [...] More MD, MPH Fellow, Division of Gastroenterology/Hepatology [facility] Teaching Statement: Dr. Lupillo Parra MD was present for the entire procedure Lupillo Russell MD Clinical Behavioral Health Consultant Department of Internal Medicine Division of Gastroenterology and Hepatology [address] [place] [address] Fax [email or web address] SPINE AP& LATERAL (12/19/2016 10:44 [...]
--- OUTSIDE RECORDS SUMMARY | 2017-02-08 20:01 | XMS REPORT | Continuity of Care Document ---
:1955 Author Organization [facility] [place] [address] Care Team Providers Name Role Phone Unavailable Primary Care Provider Unavailable Source Comments This disclosure is being made pursuant to the [employer] program and maynot contain all information available regarding this patient.[facility] Active Allergies and Adverse Reactions Not on [...]
[2017-02-08] MEDS ORDERED: ALBUTEROL SULFATE 2.5 MG/3 ML VIAL.NEB IH ONE (20:02)
[2017-02-08] MEDS ORDERED: ALBUTEROL SULFATE 2.5 MG/0.5 ML VIAL.NEB IH ONE (20:03)
[2017-02-08] MEDS ORDERED: THIAMINE HCL 100 MG/ML VIAL IM ONE (20:07)
[2017-02-08] MEDS ORDERED: THIAMINE HCL 100 MG/ML VIAL ONE (20:11)
[2017-02-08 20:17] VITALS: BP 149/94
--- NOTE | 2017-02-08 20:23 | ERNOTE ---
Dyspnea - General Presenting Symptoms: shortness of breath Time Seen by Provider: 02/08/17 19:53 Source: patient - Immun/Allergies/Home Medications Immunizations: IMMUNIZATION HX Immunizations Up to Date Yes History of Influenza Vaccine Yes Hx Pneumococcal Vaccination Yes Allergies/Adverse Reactions: Allergies No Known Allergies Allergy (Verified 02/08/17 19:11) Home Medications: HOME MEDICATIONS Cyclobenzaprine HCl [Flexeril] 10 mg PO TID PRN #30 tab 01/31/17 [Last Taken Unknown] Acetaminophen [Tylenol] 500 mg PO PRN 02/06/17 [Last Taken Unknown] Pantoprazole Sodium [Protonix] 40 mg PO DAILY #30 tab 02/06/17 [Last Taken Unknown] Sucralfate [Carafate Suspension] 1 g PO QID #200 ml 02/06/17 [Last Taken Unknown ] Tramadol HCl [Rybix Odt] 50 mg PO QID #30 tab.rapdis 02/07/17 [Last Taken Unknown] - History of Present Illness Narrative: Patient is here for dyspnoea that started after he went grocery shopping with his brother and carried three grocery bags up a hill. He has had multiple ER visit per months recently On 12/18/16 he was transferred to [facility] for esophageal tear after vomiting, was seen two days ago when he vomited after having steak stuck in throat and vomited blood up again, no bleeding in ER, he was discharged home. Yesterday he was seen for chest pain, had a normal workup. He states that he stopped drinking five days ago, used to have a fifth in two days, then admits to having a few beer with friends four days ago. )ETOH in the ER two days ago was 185) states that he is taking all his medications Review of Systems - Review of Systems Constitutional: Absent: recent illness, fever EYE: Absent: vision changes Respiratory: Present: shortness of breath Cardiology: Absent: chest pain, palpitations Gastrointestinal/Abdominal: Absent: nausea, vomiting, abdominal pain Genitourinary: Present: no symptoms reported Musculoskeletal: Present: neck pain - chronic Neurological: Absent: headache, weakness, numbness - Patient's Past Medical History Patient History - Medical: Alcohol Abuse, Anxiety, GERD, Other Patient History - Cardiac/Respiratory: COPD Patient History - Cancer: No Hx of Cancer Patient History - Surgical Procedures: EGD, Total Knee Replacement, Other Patient History - Other: None - Family History Mother Family History - Medical: Family History - Cardiac/Respiratory: No pertinent hx Family History - Cancer: No pertinent family hx Father Family History - Medical: Family History - Cardiac/Respiratory: No pertinent hx Family History - Cancer: No pertinent family hx - Social History Living Situations: home Abuse History: No History of abuse Psych History: Hx of Anxiety Does anyone smoke in the home?: No Smoking Status: Former smoker Do you dip or chew tobacco: Yes Alcohol Use: heavy Drug Use: marijuana - Immunizations Immunizations Up to Date: Yes Hx Pneumococcal Vaccination: Yes History of Influenza Vaccine: Yes Physical Exam - Physical Exam General Appearance: Present: wd/wn, alert, no apparent distress, other - unkept Eye Exam: Normal inspection: bilateral Respiratory: Present: no respiratory distress, no accessory muscle use, lungs clear, decreased breath sounds. Absent: wheezing Cardiovascular/Chest: Present: regular rate, rhythm, no murmur Gastrointestinal/Abdominal: Present: nontender, nondistended Neurological Exam: Present: alert, oriented, normal mood/affect, other - minimal tremor Skin Exam: Present: normal color, warm/dry ED Progress - Vital Signs Patient's Vital Signs:: I have reviewed the patient's vital signs. Vital Signs: Vital Signs 02/08/17 02/08/17 19:04 19:10 Temperature 36.6 C Pulse Rate 119 H 114 H Respiratory 22 H Rate Blood Pressure 151/108 O2 Sat by Pulse 95 Oximetry - EKG EKG: NSR - sinustachycardia, other - moderate intraventricular conduction delay EKG read: Interp. by me - Progress/Reassessment Chief Complaint: Dyspnea Progress Note-Subjective: 02/08/17 20:18 feeling better after neb treatment,lung clear to auscultation, improved air movement was given IM thiamin as ETOH abuse Departure Clinical Impression: History of ETOH abuse COPD (chronic obstructive pulmonary disease) Qualifiers: COPD type: unspecified COPD Qualified Code(s): J44.9 - Chronic obstructive pulmonary disease, unspecified - Departure Disposition: Home self-care Condition: Fair Instructions: Chronic Obstructive Pulmonary Disease, Fine-ah-Ictl Additional Instructions: call your doctor in the morning for follow up continue your flexeril and tylenol for the chronic neck pain do not drink any more alcohol Referrals: Belkis,Nereyda, SOFTWARE PROGRAM MANAGER [[facility]] -
== END 2017-02-08 20:24 | disposition home or self-care (01) ==
LOC: ER 19:00
DX: J44.9 Chronic obstructive pulmonary disease, unspecified (principal); Z86.59 Personal history of other mental and behavioral disorders

== ENCOUNTER 2017-04-12 09:32 | Emergency (ER) | payer MEDICARE, OTHER ==
[2017-04-12] MEDS ORDERED: ALBUTEROL SULFATE 2.5 MG/3 ML VIAL.NEB IH ONE (10:29)
[2017-04-12] MEDS ORDERED: KETOROLAC TROMETHAMINE 30 MG/ML VIAL IV ONE (10:29)
[2017-04-12] MEDS ORDERED: NORMAL SALINE 1,000 ML IV ONE (10:29)
[2017-04-12] MEDS ORDERED: ASPIRIN 81 MG TAB.CHEW PO ONE (10:30)
--- NOTE | 2017-04-12 10:36 | ERNOTE ---
Date of Service: 04/12/17 Time Seen by Provider: 04/12/17 10:25 Stated Complaint: CONGESTION Presenting Symptoms:: cough, sore throat, runny nose, fever Source: patient Exam Limitations: no limitations Immunizations: IMMUNIZATION HX Immunizations Up to Date Yes History of Influenza Vaccine No Hx Pneumococcal Vaccination No Allergies/Adverse Reactions: Allergies No Known Allergies Allergy (Verified 04/12/17 11:25) Home Medications: HOME MEDICATIONS Cyclobenzaprine HCl [Flexeril] 10 mg PO TID PRN #30 tab 01/31/17 [Last Taken Unknown] Acetaminophen [Tylenol] 500 mg PO PRN 02/06/17 [Last Taken Unknown] Pantoprazole Sodium [Protonix] 40 mg PO DAILY #30 tab 02/06/17 [Last Taken Unknown] Sucralfate [Carafate Suspension] 1 g PO QID #200 ml 02/06/17 [Last Taken Unknown ] Tramadol HCl [Rybix Odt] 50 mg PO QID #30 tab.rapdis 02/07/17 [Last Taken Unknown] Doxycycline Monohydrate 100 mg PO BID #20 tablet 04/12/17 [Last Taken Unknown] predniSONE [Prednisone] 3 tab PO DAILY #9 tab 04/12/17 [Last Taken Unknown] - History of Present Ilness Narrative: Pt. comes in with c/o cough, chest congestion, rhinorrhea, sinus congestion, dyspnea, and intermittent L chest pain for two days. Pt. states that he has tried his inhaler without relief. Pt. denies any fever or chills but states that he has hot flashes. Pt. denies any alleviating or aggravating factors and states that his chest pain is resolved at this time but the cough and SOB is getting worse as he is sitting here and causing great amount of anxiety. Pt. staes that he last had ETOH yesterday at around two when he drank a six pack with his neighbor. Review of Systems - Review of Systems Constitutional: Present: weakness, fatigue, malaise. Absent: recent illness, fever, chills EYE: Present: no symptoms reported ENT: Present: nose congestion, nasal drainage, sore throat Respiratory: Present: shortness of breath, cough, orthopnea, wheezing Cardiology: Present: chest pain. Absent: palpitations, syncope, edema, claudication Gastrointestinal/Abdominal: Present: no symptoms reported. Absent: nausea, vomiting, diarrhea, abdominal pain Genitourinary: Present: no symptoms reported Musculoskeletal: Present: neck pain - R upper. Absent: back pain, joint pain Skin: Present: no symptoms reported. Absent: rash, change in hair/nails Neurological: Present: no symptoms reported. Absent: headache, dizziness/light- headedness, numbness, tingling Endocrine: Present: excessive sweating, intolerance to heat, intolerance to cold Hematologic/Lymphatic: Present: no symptoms reported Psych: Present: anxiety All Other Systems: All systems neg except as marked - Patient's Past Medical History Patient History - Medical: Alcohol Abuse, Anxiety, GERD Patient History - Cardiac/Respiratory: COPD Patient History - Cancer: No Hx of Cancer Patient History - Surgical Procedures: EGD, Total Knee Replacement, Other Patient History - Other: None - Family History Mother Family History - Medical: Family History - Cardiac/Respiratory: No pertinent hx Family History - Cancer: No pertinent family hx Father Family History - Medical: Family History - Cardiac/Respiratory: No pertinent hx Family History - Cancer: No pertinent family hx - Social History Living Situations: home Abuse History: No History of abuse Psych History: Hx of Anxiety Does anyone smoke in the home?: No Smoking Status: Current some day smoker Do you dip or chew tobacco: Yes Alcohol Use: heavy Drug Use: marijuana - Immunizations Immunizations Up to Date: Yes Hx Pneumococcal Vaccination: No History of Influenza Vaccine: No Physical Exam - Physical Exam General Appearance: Present: alert, moderate distress, anxious, thin Head Exam: Present: normal inspection, no evidence of injury Eye Exam: Normal inspection: bilateral, PERRL: bilateral, EOMI: bilateral Ears, Nose, Throat: Present: nasal congestion, sinus pain/drainage, pharyngeal erythema. Absent: pharyngeal swelling Neck: Present: supple, full range of motion, tender lateral - R lateral vastus lateralis. Absent: lymphadenopathy (R), lymphadenopathy (L), tender posterior midline Respiratory: Present: respiratory distress, accessory muscle use, wheezing - upper lobes. Absent: chest tenderness, crackles, rales, rhonchi Cardiovascular/Chest: Present: no murmur, normal peripheral pulses, tachycardia Gastrointestinal/Abdominal: Present: normal bowel sounds, nontender, nondistended, soft, no organomegaly Back Exam: Present: normal inspection, normal range of motion, no CVA tenderness , no vertebral tenderness Extremity Exam: Present: normal inspection, non-tender, normal range of motion, no edema Neurological Exam: Present: alert, oriented, no motor/sensory deficits, financial services professional II- XII nml as tested, other - severe agitation and anxiety. Extrapyramidial movements normal for pt. Skin Exam: Present: warm/dry, pallor. Absent: skin rash ED Progress - Date and Time Seen: Date and Time: 04/12/17 11:08 Pt. heart rate, pain and breathing much better with Ativan and pt. has tremors at this time. Feel that pt. may be starting to withdraw from ETOH and that is making symptoms worse. 04/12/17 11:14 Believe that as pt. WBC is normal that lactic acid is due to acute stress response and the Acute DT pt. is currently experiencing will await other results. 04/12/17 12:[address] Cunningham and we feel that pt. is stable to go home after getting banana bag and IVF with dx of COPD exacerbation and upper resp infection. Feel that pt. needs abx treatment due to COPD history and concurrent infection that this will turn into pneumonia if not treated due to high risk. - Results and Orders Patient's Lab Results:: I have reviewed the patient's lab results. Results and Orders: Elevated Lactic Acid, D dimer, with no previous draws to compare but elevated LFTs seem to be within normal range for pt. and pt. with negative ETOH level. - Vital Signs Patient's Vital Signs:: I have reviewed the patient's vital signs. Vital Signs: Vital Signs 04/12/17 09:45 Temperature 36.5 C Pulse Rate 120 H Respiratory 18 Rate Blood Pressure 164/106 O2 Sat by Pulse 96 Oximetry - EKG EKG: other - Sinus tach with IVCD no change from previous interp by Dr Cunningham EKG read: Reviewed by me - CT/Ultrasound CT/Ultrasound Narrative: CT negative for any acute abnormality - Progress/Reassessment Chief Complaint: Upper Respiratory Symptoms Progress:: Improved Departure - Departure Clinical Impression: COPD with acute exacerbation, Alcoholism /alcohol abuse, Panic attack Alcohol withdrawal Qualifiers: Complication of substance-induced condition: uncomplicated Qualified Code(s): F10.230 - Alcohol dependence with withdrawal, uncomplicated Upper respiratory infection Qualifiers: URI type: unspecified viral URI Qualified Code(s): J06.9 - Acute upper respiratory infection, unspecified Disposition: Home self-care Condition: Good Instructions: Chronic Obstructive Pulmonary Disease Exacerbation, Rehe-rx-Birv , Upper Respiratory Infection, Adult, Budp-xw-Oled Additional Instructions: Please use inhaler every 4 hours. Please take medications as prescribed. Please follow up with Primary provider in 1-2 days. Referrals: Nereyda Tamayo FNP [Primary Care Provider] - Prescriptions: Doxycycline Monohydrate 100 mg PO BID #20 tablet predniSONE [Prednisone] 3 tab PO DAILY #9 tab
[2017-04-12] MEDS ORDERED: LORazepam 2 MG/ML DISP.SYRIN IV ONE ×2 (10:53→11:30)
[2017-04-12] MEDS ORDERED: ASPIRIN 81 MG TAB.CHEW ONE (10:55)
[2017-04-12] MEDS ORDERED: KETOROLAC TROMETHAMINE 30 MG/ML VIAL ONE (10:55)
[2017-04-12] MEDS ORDERED: ALBUTEROL SULFATE 2.5 MG/0.5 ML VIAL.NEB IH ONE (10:55)
[2017-04-12] MEDS ORDERED: LORazepam 1 MG TABLET ONE (10:55)
[2017-04-12] MEDS ORDERED: LORazepam 2 MG/ML DISP.SYRIN ONE (10:55)
[2017-04-12 10:57] LABS: Hematocrit 41.7 % (42.0-52.0); Hemoglobin 14.5 gm/dL (13.5-18.0); Mean Cell Volume 86.7 fl (78-100); Mean Corpuscular Hemoglobin 30.1 pg (27-31); Mean Corpuscular Hgb Conc 34.8 g/dl (32-36); Mean Platelet Volume 9.7 fl (6.0-9.5); Neutrophil # 5.4 K/mm3 (1.3-6.0); Neutrophil % 70.3 % (42-75.0); Platelet Count 139 K/mm3 (150-450); Red Blood Count 4.81 M/mm3 (4.7-6.0); Red Cell Distribution Width 13.2 % (11.5-14.0); White Blood Count 7.6 K/mm3 (4.0-10.5)
[2017-04-12] MEDS ORDERED: MULTIVIT INFUSN,ADULT 4,VIT K 10 ML, THIAMINE HCL 100 MG in NORMAL SALINE 1,000 ML IV SCH (11:15)
[2017-04-12 11:16] LABS: ALT 145 U/L (19-67); AST 152 U/L (0-48); Albumin * 4.4 gm/dl (3.4-5.0); Alkaline Phosphatase * 84 U/L (50-170); BNP * 84 pg/mL (5-175); BUN/Creatinine Ratio 14.7 (9.0-21.6); Bilirubin, Total 1.8 mg/dL (0.0-1.1); Blood Urea Nitrogen 14 mg/dL (6-23); Ca. Corrected For Albumin 8.7 mg/dL (8.4-10.2); Calcium * 9.3 mg/dL (7.9-10.9); Carbon Dioxide 22.6 mmol/L (24-32.6); Chloride 97 mmol/L (97-106); Glucose * 122 mg/dL (70-110); Potassium 3.6 mmol/L (3.4-4.6); Sodium 138 mmol/L (132-142); Total Protein 8.1 gm/dL (6.2-8.2); Troponin I Less than 0.017 ng/ml (0.00-0.10)
[2017-04-12 12:15] LABS: Urine Bilirubin 3 mg/dl (NEGATIVE); Urine Blood Negative /ul (NEGATIVE); Urine Ketone Large mg/dL (NEGATIVE); Urine Nitrite Negative (NEGATIVE); Urine Protein 30 mg/dL (NEGATIVE); Urine Specific Gravity 1.015 SP.GR. (1.005-1.030); Urine Urobilinogen Normal (NORMAL); Urine pH 5.5 pH (5.0-7.0)
[2017-04-12 12:21] LABS: Urine Appearance Clear; Urine Bacteria None Seen; Urine Color Dark Yellow; Urine Mucus Few - 1+; Urine RBC None Seen /hpf (0-5); Urine WBC None Seen /hpf (0-5)
[2017-04-12 12:29] LABS: Cocaine Ur Negative (NEGATIVE); Urine Barbiturate Negative (NEGATIVE); Urine Benzodiazepines Negative (NEGATIVE); Urine Opiates Negative (NEGATIVE); Urine PCP Negative (NEGATIVE)
[2017-04-12 12:30] LABS: Urine THC Positive (NEGATIVE)
[2017-04-12 14:15] VITALS: BP 172/96
== END 2017-04-12 14:14 | disposition home or self-care (01) ==
LOC: ER 09:32
DX: J44.1 Chronic obstructive pulmonary disease with (acute) exacerbation (principal); F41.0 Panic disorder [episodic paroxysmal anxiety]; F10.239 Alcohol dependence with withdrawal, unspecified; J06.9 Acute upper respiratory infection, unspecified; F17.220 Nicotine dependence, chewing tobacco, uncomplicated
CPT/HCPCS: 36415; 71275; 80053; 80307; 81001; 83605; 83880; 84484; 85025; 85379; 85652; 86140; 87040; 93005; 94640; 96374; 96375; 99285; G0481

== ENCOUNTER 2017-07-08 08:26 | Emergency (ER) | payer MEDICARE, OTHER ==
--- NOTE | 2017-07-08 08:36 | ERNOTE ---
Back Pain ER HPI Presenting Symptoms: hx chronic back pain Time Seen by Provider: 07/08/17 08:35 Source: patient Exam Limitations: no limitations Immunizations: IMMUNIZATION HX Immunizations Up to Date Yes History of Influenza Vaccine No Hx Pneumococcal Vaccination No Allergies/Adverse Reactions: Allergies No Known Allergies Allergy (Verified 07/08/17 08:34) Home Medications: HOME MEDICATIONS Baclofen 10 mg PO QID #60 tab 07/08/17 [Last Taken Unknown] Narrative: Patient has a long-standing history of low back pain was a variety of other pains. In a little over year he's had a total of 16 x-ray examinations with for them being CAT scans. Patient has a long-standing history of alcohol and marijuana abuse and falls frequently and has caused multiple injuries to himself. He had another flareup of his right-sided low back pain and right shoulder pain starting last night, he tried drinking alcohol but it did not help. He complains right now moderate to severe pain Timing: Reports: constant Quality/Severity: Reports: moderate Location of pain: Reports: lower back - on the right side with spasm Activities at Onset: Reports: activity Recent Injury?: Reports: possibly Possible Precipitating Factor: Reports: none - patient has frequent falls related to his alcohol abuse Modifying Factors - (Improves): Reports: nothing Modifying Factors - (Worsens): Reports: movement to right, movement to left Associated Symptoms: Reports: none Prior Treament: Reports: recently seen, treated by physician Review of Systems - Review of Systems Constitutional: Present: See HPI EYE: Present: no symptoms reported ENT: Present: no symptoms reported Respiratory: Present: no symptoms reported Cardiology: Present: no symptoms reported Gastrointestinal/Abdominal: Present: no symptoms reported Genitourinary: Present: no symptoms reported Musculoskeletal: Present: back pain, joint pain - chronic right shoulder pain Skin: Present: no symptoms reported Neurological: Present: no symptoms reported Endocrine: Present: no symptoms reported Hematologic/Lymphatic: Present: no symptoms reported Psych: Present: no symptoms reported - Patient's Past Medical History Patient History - Medical: Alcohol Abuse, Anxiety, Chronic Pain, GERD Patient History - Cardiac/Respiratory: COPD Patient History - Cancer: No Hx of Cancer Patient History - Surgical Procedures: EGD, Total Knee Replacement, Other Patient History - Other: None - Family History Mother Family History - Medical: Family History - Cardiac/Respiratory: No pertinent hx Family History - Cancer: No pertinent family hx Father Family History - Medical: Family History - Cardiac/Respiratory: No pertinent hx Family History - Cancer: No pertinent family hx - Social History Abuse History: No History of abuse Psych History: Hx of Anxiety Smoking Status: Never smoker Have you smoked in the past 12 months: No - Immunizations Immunizations Up to Date: Yes Hx Pneumococcal Vaccination: No History of Influenza Vaccine: No Physical Exam - Physical Exam General Appearance: Present: wd/wn, alert, moderate distress Head Exam: Present: normal inspection Eye Exam: Normal inspection: bilateral, PERRL: bilateral Ears, Nose, Throat: Present: normal ENT inspection, H, normal pharynx Neck: Present: normal inspection, nontender Respiratory: Present: no respiratory distress, normal breath sounds, no accessory muscle use, chest nontender, lungs clear Cardiovascular/Chest: Present: regular rate, rhythm, no murmur, normal peripheral pulses Gastrointestinal/Abdominal: Present: normal bowel sounds, nontender, nondistended, soft, no organomegaly Rectal Exam: Present: deferred Male Genitals Exam: Present: deferred Back Exam: Present: muscle spasm, other - right-sided lumbar paraspinal muscle spasm and chronic right shoulder pain along what appears to be the supraspinatus muscle Extremity Exam: Present: normal range of motion, no edema, decreased range of motion - right shoulder Neurological Exam: Present: alert, oriented, normal mood/affect Skin Exam: Present: normal color, warm/dry Lymphatic Exam: Present: no adenopathy ED Progress - Vital Signs Patient's Vital Signs:: I have reviewed the patient's vital signs. Vital Signs: Vital Signs 07/08/17 08:31 Pulse Rate 111 H Respiratory 14 Rate Blood Pressure 174/116 O2 Sat by Pulse 97 Oximetry - Progress/Reassessment Chief Complaint: Back Pain Progress:: Improved Plan - Plan Plan: Patient has such a long-standing profound history that treating him always been difficult. He responds nicely to Toradol and Norflex but I'm reluctant to give him long-term NSAIDs because of his chronic alcohol abuse and the potentiality of precipitating peptic ulcer disease. There have been reports of baclofen not only being assistance for muscle spasm but also appears to help chronic alcoholics move away from alcohol addiction. We will give this a try and have him follow-up with his family physician as needed. Departure Clinical Impression: Alcoholism /alcohol abuse, Muscle spasm Right shoulder strain Qualifiers: Encounter type: subsequent encounter Qualified Code(s): S46.911D - Strain of unspecified muscle, fascia and tendon at shoulder and upper arm level, right arm , subsequent encounter Back pain Qualifiers: Back pain location: low back pain Chronicity: chronic Back pain laterality: right Sciatica presence: without sciatica Qualified Code(s): M54.5 - Low back pain; G89.29 - Other chronic pain; G89.29 - Other chronic pain - Departure Disposition: Home self-care Condition: Good Instructions: Back Pain, Adult, Alcohol Use Disorder, Muscle Cramps and Spasms , [id number] Referrals: Nereyda Tamayo FNP [Primary Care Provider] - Prescriptions: Baclofen 10 mg PO QID #60 tab
[2017-07-08] MEDS ORDERED: KETOROLAC TROMETHAMINE 60 MG/2 ML VIAL IM ONE ×2 (08:39→08:44)
[2017-07-08] MEDS ORDERED: ORPHENADRINE CITRATE 30 MG/ML VIAL IM ONE (08:39)
[2017-07-08] MEDS ORDERED: ORPHENADRINE CITRATE 30 MG/ML VIAL ONE (08:44)
[2017-07-08 09:10] VITALS: BP 162/111
== END 2017-07-08 09:09 | disposition home or self-care (01) ==
LOC: ER 08:26
DX: S46.911A Strain of unspecified muscle, fascia and tendon at shoulder and upper arm level, right arm, initial encounter (principal); M54.5 Low back pain; G89.29 Other chronic pain; F10.20 Alcohol dependence, uncomplicated; M62.838 Other muscle spasm; W19.XXXA Unspecified fall, initial encounter

== ENCOUNTER 2017-07-16 10:28 | Emergency (ER) | payer MEDICARE, OTHER ==
[2017-07-16 10:51] LABS: Hematocrit 42.4 % (42.0-52.0); Hemoglobin 14.8 gm/dL (13.5-18.0); Mean Cell Volume 89.6 fl (78-100); Mean Corpuscular Hemoglobin 31.3 pg (27-31); Mean Corpuscular Hgb Conc 34.9 g/dl (32-36); Mean Platelet Volume 9.4 fl (6.0-9.5); Neutrophil % 53.1 % (42-75.0); Platelet Count 210 K/mm3 (150-450); Red Blood Count 4.73 M/mm3 (4.7-6.0); Red Cell Distribution Width 11.8 % (11.5-14.0); White Blood Count 5.6 K/mm3 (4.0-10.5)
[2017-07-16 10:54] LABS: Urine Bilirubin Negative (NEGATIVE); Urine Blood Negative /ul (NEGATIVE); Urine Ketone Negative (NEGATIVE); Urine Nitrite Negative (NEGATIVE); Urine Protein Negative (NEGATIVE); Urine Urobilinogen Normal (NORMAL); Urine pH 5.5 pH (5.0-7.0)
--- NOTE | 2017-07-16 10:56 | ERNOTE ---
Abdominal HPI - Narrative Date of Service: 07/16/17 - General Chief Complaint: Abdominal Pain Time Seen by Provider: 07/16/17 10:43 Source: patient Exam Limitations: no limitations - Immun/Allergies/Home Medications Immunizatons: IMMUNIZATION HX Immunizations Up to Date Yes History of Influenza Vaccine No Hx Pneumococcal Vaccination No Allergies/Adverse Reactions: Allergies No Known Allergies Allergy (Verified 07/16/17 10:36) Home Medications: HOME MEDICATIONS Acetaminophen 325 mg PO PRN 07/16/17 [Last Taken Unknown] Amlodipine Besylate 10 mg PO DAILY 07/16/17 [Last Taken Unknown] Amlodipine Besylate 10 mg PO DAILY #30 tablet 07/16/17 [Last Taken Unknown] Cyclobenzaprine HCl 10 mg PO TID 07/16/17 [Last Taken Unknown] Diazepam [Valium] 2 mg PO TID 07/16/17 [Last Taken Unknown] Folic Acid 1 mg PO DAILY 07/16/17 [Last Taken Unknown] Pantoprazole Sodium 40 mg PO DAILY 07/16/17 [Last Taken Unknown] Sucralfate [Carafate] 1 gm PO QID 07/16/17 [Last Taken Unknown] Thiamine HCl [B-1] 100 mg PO DAILY 07/16/17 [Last Taken Unknown] Tramadol HCl [Rybix Odt] 50 mg PO QID 07/16/17 [Last Taken Unknown] - History of Present Illness Narrative: Patient is a 61-year-old male who presented to the emergency room complaining of upper abdominal pain that woke him up this morning. He reports it comes and goes and not constant. He reports his pain is moderate intensity and is there no palliative or provocative factors. He denies any nausea, vomiting, changes in his bowel habits, or, chills, night sweats Timing: unsure Quality: mild Activities at Onset: none Associated Symptoms: Absent: headache, back pain, chest pain, neck pain, diaphoresis, diarrhea-gross blood, diarrhea-mucous, fatigue, fever/chills, heartburn, nausea, vomiting, loss of appetite, shortness of breath, swelling/ mass in abdomen, syncope, weakness Prior Abdominal Problems: Present: none Review of Systems - Review of Systems Constitutional: Present: See HPI ENT: Present: See HPI Respiratory: Present: See HPI Cardiology: Present: See HPI Gastrointestinal/Abdominal: Present: abdominal pain. Absent: nausea, vomiting, diarrhea, constipation, eating less, drinking less Musculoskeletal: Present: See HPI Skin: Present: See HPI Neurological: Present: See HPI Hematologic/Lymphatic: Present: See HPI - Patient's Past Medical History Patient History - Medical: Alcohol Abuse, Anxiety, Chronic Pain, GERD Patient History - Cardiac/Respiratory: COPD Patient History - Cancer: No Hx of Cancer Patient History - Surgical Procedures: EGD, Total Knee Replacement, Other Patient History - Other: None - Family History Mother Family History - Medical: Family History - Cardiac/Respiratory: No pertinent hx Family History - Cancer: No pertinent family hx Father Family History - Medical: Family History - Cardiac/Respiratory: No pertinent hx Family History - Cancer: No pertinent family hx - Social History Living Situations: home Abuse History: No History of abuse Psych History: Hx of Anxiety Do you dip or chew tobacco: Yes - Immunizations Immunizations Up to Date: Yes Hx Pneumococcal Vaccination: No History of Influenza Vaccine: No Physical Exam - Physical Exam General Appearance: Present: wd/wn, alert, no apparent distress Head Exam: Present: normal inspection, no evidence of injury Eye Exam: Normal inspection: bilateral, PERRL: bilateral, EOMI: bilateral Neck: Present: normal inspection, nontender, supple, full range of motion Respiratory: Present: no respiratory distress, normal breath sounds, no accessory muscle use, chest nontender Cardiovascular/Chest: Present: regular rate, rhythm, no murmur, normal peripheral pulses Gastrointestinal/Abdominal: Present: normal bowel sounds, nondistended, soft, tenderness - mostly at the thoracoabdominal area. Back Exam: Present: normal inspection, normal range of motion, no CVA tenderness Extremity Exam: Present: normal inspection Neurological Exam: Present: alert, oriented, normal mood/affect, no motor/ sensory deficits Skin Exam: Present: normal color, warm/dry ED Progress - Results and Orders Patient's Lab Results:: I have reviewed the patient's lab results. - Vital Signs Patient's Vital Signs:: I have reviewed the patient's vital signs. Vital Signs: Vital Signs 07/16/17 10:32 Temperature 36.8 C Pulse Rate 109 H Respiratory 20 Rate Blood Pressure 165/152 O2 Sat by Pulse 98 Oximetry - Progress/Reassessment Chief Complaint: Abdominal Pain Progress:: Pain free at discharge Progress Note-Subjective: 07/16/17 11:45 I took the liberty of reviewing his medication list upon talking to the patient is not taking any medications. Has been on amlodipine in the past which she has been noncompliant with. Also have been noncompliant with his Protonix and sulcrafate. We'll proceed and renew his amlodipine and have her follow up with his primary care physician on Thursday Was reviewed with no white count noted. Troponin is also normal. Abdominal and chest x-ray were all unremarkable for any acute disease. - Transfer of Care Expected Disposition: Discharge Departure Clinical Impression: Hypertensive urgency Abdominal pain Qualifiers: Abdominal location: upper abdomen, unspecified Qualified Code(s): R10.10 - Upper abdominal pain, unspecified - Departure Disposition: Home self-care Condition: Stable Instructions: Managing Your High Blood Pressure Referrals: Nereyda Tamayo FNP [Primary Care Provider] - Prescriptions: Amlodipine Besylate 10 mg PO DAILY #30 tablet
[2017-07-16 11:01] LABS: Urine Appearance Clear; Urine Bacteria None Seen; Urine Color Yellow; Urine RBC None Seen /hpf (0-5); Urine WBC None Seen /hpf (0-5)
[2017-07-16 11:09] LABS: ALT 18 U/L (19-67); AST 23 U/L (0-48); Albumin * 3.8 gm/dl (3.4-5.0); Alkaline Phosphatase * 68 U/L (50-170); Amylase * 46 U/L (25-115); Anion Gap 17.6 mmol/L (6.8-13.8); BUN/Creatinine Ratio 9.8 (9.0-21.6); Bilirubin, Total 0.9 mg/dL (0.0-1.1); Blood Urea Nitrogen 9 mg/dL (6-23); Ca. Corrected For Albumin 8.3 mg/dL (8.4-10.2); Calcium * 8.5 mg/dL (7.9-10.9); Carbon Dioxide 22.4 mmol/L (24-32.6); Chloride 103 mmol/L (97-106); Glucose * 97 mg/dL (70-110); Lipase 183 U/L (73-393); Sodium 139 mmol/L (132-142); Total Protein 7.3 gm/dL (6.2-8.2); Troponin I Less than 0.017 ng/ml (0.00-0.10)
[2017-07-16 11:59] VITALS: BP 146/95
[2017-07-16] MEDS ORDERED: amLODIPine BESYLATE 10 MG TABLET PO ONE (12:00)
== END 2017-07-16 12:02 | disposition home or self-care (01) ==
LOC: ER 10:28
DX: I16.0 Hypertensive urgency (principal); R10.10 Upper abdominal pain, unspecified; K21.9 Gastro-esophageal reflux disease without esophagitis; F17.220 Nicotine dependence, chewing tobacco, uncomplicated

== ENCOUNTER 2018-03-07 17:07 | Observation (INO) | payer MEDICAID, MEDICARE ==
[2018-03-07] MEDS ORDERED: NITROGLYCERIN 0.4 MG/TAB BTL SL ONE (17:09)
[2018-03-07] MEDS ORDERED: NITROGLYCERIN 0.4 MG/TAB BTL SL PRN (17:12)
[2018-03-07] MEDS ORDERED: LORazepam 2 MG/ML DISP.SYRIN ONE ×2 (17:21→21:26)
[2018-03-07] MEDS ORDERED: LORazepam 2 MG/ML DISP.SYRIN IV ONE (17:22)
[2018-03-07 17:27] LABS: Hematocrit 41.3 % (42.0-52.0); Hemoglobin 14.2 gm/dL (13.5-18.0); Mean Cell Volume 85.9 fl (78-100); Mean Corpuscular Hemoglobin 29.5 pg (27-31); Mean Corpuscular Hgb Conc 34.4 g/dl (32-36); Mean Platelet Volume 8.9 fl (8-11.3); Neutrophil # 2.1 K/mm3 (1.3-6.0); Neutrophil % 54.4 % (42-75.0); Platelet Count 176 K/mm3 (150-450); Red Blood Count 4.81 M/mm3 (4.7-6.0); Red Cell Distribution Width 11.9 % (11.5-14.0); White Blood Count 3.8 K/mm3 (4.0-10.5)
--- NOTE | 2018-03-07 17:36 | ERNOTE ---
Chest Pain/Cardiac HPI Date of Service: 03/07/18 Chief Complaint: Chest Pain Time Seen by Provider: 03/07/18 17:24 Source: patient Exam Limitations: no limitations Immunizations: IMMUNIZATION HX Immunizations Up to Date Yes History of Influenza Vaccine No Hx Pneumococcal Vaccination No Allergies/Adverse Reactions: Allergies No Known Allergies Allergy (Verified 03/07/18 17:29) Home Medications: HOME MEDICATIONS NK 03/07/18 [Last Taken Unknown] Narrative: 62-year-old male presents to the emergency room for chest pain with left arm pain. Patient states that this pain started this morning at 8 AM and has continued to get worse. Patient is also complaining of shortness of breath and abdominal pain. Date (Duration): 03/07/18 Timing: constant Severity/Quality: moderate, other - she is unable to describe his pain. He just states he has pain to his left chest and left arm Location: substernal, shoulder, left chest Chest Pain Radiation: arms Nitro Today/Relief: 0.4 mg x 3, provided by ED Aspirin Treatment Today: 325 mg x 1, provided by EMS Associated Symptoms: Present: shortness of breath, nausea. Absent: headache, diaphoresis Prior Chest Pain/Cardiac Workup: Reports: prior chest pain Review of Systems - Review of Systems Constitutional: Present: See HPI EYE: Present: no symptoms reported ENT: Present: no symptoms reported Respiratory: Present: See HPI, shortness of breath Cardiology: Present: See HPI, chest pain Gastrointestinal/Abdominal: Present: See HPI, nausea Genitourinary: Present: See HPI, pain Musculoskeletal: Present: no symptoms reported Skin: Present: no symptoms reported Neurological: Present: no symptoms reported Endocrine: Present: no symptoms reported Hematologic/Lymphatic: Present: no symptoms reported Psych: Present: no symptoms reported All Other Systems: All systems neg except as marked Medical History (Last Updated 03/07/18 @ 20:38 by Tonja Ureña RN) Bunion Ligament tear No pertinent past medical history Family History: Family History (Last Updated 03/07/18 @ 20:39 by Tonja Ureña RN) Other No pertinent family history Social History: Preferred Language Congolese Smoking Status Never smoker Do you dip or chew tobacco Yes Abuse History No History of abuse Psych History Hx of Anxiety Alcohol Use heavy Drug Use marijuana Physical Exam - Physical Exam General Appearance: Present: wd/wn, alert, moderate distress, anxious Head Exam: Present: normal inspection, no evidence of injury Eye Exam: Normal inspection: bilateral, PERRL: bilateral Ears, Nose, Throat: Present: normal ENT inspection Neck: Present: normal inspection, nontender Respiratory: Present: normal breath sounds, chest nontender, lungs clear, respiratory distress Cardiovascular/Chest: Present: no murmur, normal peripheral pulses, tachycardia Peripheral Pulses: N=norm/S=strong/W=weak/B=bound/A=absent: Dorsalis-pedis (R): Normal, Dorsalis-pedis (L): Normal Gastrointestinal/Abdominal: Present: normal bowel sounds, nontender, nondistended, no organomegaly, tenderness Back Exam: Present: normal inspection, normal range of motion, no CVA tenderness , no vertebral tenderness Extremity Exam: Present: normal inspection, non-tender, normal range of motion, no edema Neurological Exam: Present: alert, oriented, normal mood/affect, no motor/ sensory deficits Skin Exam: Present: normal color, warm/dry. Absent: diaphoresis, cyanosis, pallor Lymphatic Exam: Present: no adenopathy ED Progress - Results and Orders Patient's Lab Results:: I have reviewed the patient's lab results. - Vital Signs Patient's Vital Signs:: I have reviewed the patient's vital signs. Vital Signs: Vital Signs 03/07/18 17:09 Temperature 37.6 C Pulse Rate 120 H Respiratory Rate 23 H Blood Pressure 147/98 H O2 Sat by Pulse Oximetry 99 - EKG EKG: paraoxymal atrial tachycardia - X-Ray X-Ray #1 X-Ray: chest Interpretation: Reviewed by me X-ray Comments: no acute process - CT/Ultrasound CT/Ultrasound Narrative: no PE - Progress/Reassessment Chief Complaint: Chest Pain Progress:: Improved Plan - Plan Plan: spoke with Dr Tk Maurice and patient to be admitted to [facility] for cp rule out, shortness of breath Departure Clinical Impression: Chest pain Qualifiers: Chest pain type: unspecified Qualified Code(s): R07.9 - Chest pain, unspecified - Departure Disposition: Still a patient Condition: Stable
[2018-03-07 17:45] LABS: Albumin * 3.8 gm/dl (3.4-5.0); Anion Gap 17.3 mmol/L (6.8-13.8); BUN/Creatinine Ratio 5.4 (9.0-21.6); Bilirubin, Total 0.9 mg/dL (0.0-1.1); Ca. Corrected For Albumin 8.2 mg/dL (8.4-10.2); Calcium * 8.4 mg/dL (7.9-10.9); Carbon Dioxide 23.2 mmol/L (24-32.6); Chol/HDL Risk Ratio 1.8 mg/dL (3.3-5.0); Potassium 3.5 mmol/L (3.4-4.6); Total Protein 7.1 gm/dL (6.2-8.2)
[2018-03-07 17:48] LABS: Troponin I Less than 0.017 ng/ml (0.00-0.10)
[2018-03-07] MEDS ORDERED: METHYLPREDNISOLONE SOD SUCC/PF 40 MG/ML VIAL IM ONE (17:50)
[2018-03-07] MEDS ORDERED: LEVALBUTEROL HCL 1.25 MG/3 ML AMPUL IH ONE ×2 (17:53→18:42)
[2018-03-07] MEDS ORDERED: METHYLPREDNISOLONE SOD SUCC/PF 40 MG/ML VIAL ONE (18:26)
[2018-03-07] MEDS ORDERED: LEVALBUTEROL HCL 0.63 MG/3 ML AMPUL IH ONE (18:26)
[2018-03-07] MEDS ORDERED: AZITHROMYCIN 500 MG in DEXTROSE 5 % IN WATER 250 ML IV ONE ×2 (19:49)
[2018-03-07 22:54] LABS: Urine Bilirubin Negative (NEGATIVE); Urine Blood Negative /ul (NEGATIVE); Urine Ketone Negative (NEGATIVE); Urine Nitrite Negative (NEGATIVE); Urine Protein Negative (NEGATIVE); Urine Urobilinogen Normal (NORMAL)
[2018-03-07 22:55] LABS: Urine Appearance Clear (CLEAR); Urine Bacteria None Seen; Urine Color Yellow; Urine RBC None Seen /hpf (0-5); Urine WBC None Seen /hpf (0-5)
[2018-03-07 23:07] LABS: Cocaine Ur Negative (NEGATIVE); Urine Barbiturate Negative (NEGATIVE); Urine Benzodiazepines Negative (NEGATIVE); Urine Opiates Negative (NEGATIVE); Urine PCP Negative (NEGATIVE)
[2018-03-07 23:08] LABS: Urine THC Positive (NEGATIVE)
--- NOTE | 2018-03-07 23:40 | HP ---
Chief Complaint - Chief Complaint Date of Service: 03/07/18 Time of Service: 19:00 Chief Complaint: Chest pain History of Present Illness: Rafiq is a 62 yo male who presented to the [facility] ER with chest pain. He reports for the past week he has had cough with productive sputum. Today he began having chest pain, worse with coughing. In the ER he was evaluated for NC , EKG and troponin were negative for acute NC. Medical History (Last Reviewed 03/16/18 @ 12:01 by BLAYNE Benson) Hypertension (Chronic) Alcohol abuse Onset Date: Unknown Elevated liver enzymes Onset Date: Unknown Ligament tear Onset Date: Unknown No pertinent past medical history Surgical History: Surgical History (Last Reviewed 03/16/18 @ 12:01 by BLAYNE Benson) Bunion Onset Date: Unknown H/O knee surgery Onset Date: Unknown Family History: Family History (Last Reviewed 03/16/18 @ 12:01 by BLAYNE Benson) Father COPD (chronic obstructive pulmonary disease) Alcoholism Mother Diabetes Hypertension Other No pertinent family history Social History: Patient Lives/Resources brother Utilized Preferred Language Urdu Do you have any holiness or No cultural preference? Smoking Status Light tobacco smoker Have you smoked in the past 12 Yes months Do you dip or chew tobacco Yes Abuse History No History of abuse Psych History Hx of Anxiety Alcohol Use heavy Drug Use marijuana Review Of Systems (GEN) - Review of Systems Generalized/Overall Review: Present: Chills. Absent: Fever EENTM: Present: No Symptoms Reported Respiratory: Present: Cough, Shortness of Breath Cardiac: Present: Chest Pain. Absent: Edema, Palpitations Abdominal: Absent: Nausea, Vomiting, Abdominal Pain Genitourinary: Present: No Symptoms Reported Musculoskeletal: Present: No Symptoms Reported Neurological: Present: No Symptoms Reported Skin: Present: No Symptoms Reported Endocrine: Present: No Symptoms Reported Immunizations: IMMUNIZATION HX Immunizations Up to Date Yes History of Influenza Vaccine No Hx Pneumococcal Vaccination No Allergies/Adverse Reactions: Allergies Allergy/AdvReac Type Severity Reaction Status Date / Time No Known Allergies Allergy Verified 03/16/18 09:12 Home Medications: HOME MEDICATIONS amlodipine 10 mg tablet 10 mg PO DAILY #30 tab 03/16/18 [Last Taken Unknown] Exam - Exam Vital Signs: Vital Signs - Last Taken Temp 36.9 C 03/07/18 20:30 Pulse 85 03/07/18 20:30 Resp 16 03/07/18 20:30 BP 171/99 H 03/07/18 20:30 Pulse Ox 98 03/07/18 20:30 Constitutional: Present: Alert, Oriented x3, Cooperative ENT Exam: Present: hearing grossly normal Eye Exam: bilateral eye: normal inspection Respiratory: Present: lungs clear, normal breath sounds, no respiratory distress Cardiovascular/Chest: Present: regular rate, rhythm, no edema Abdomen: Present: Normal bowel sounds, soft, nontender, nondistended Skin Exam: Present: no cyanosis Neurologic: Present: alert, normal mood/affect, oriented x 3 Diagnostic Studies: Abnormal Lab Results 03/07/18 03/07/18 03/07/18 Range/Units 17:22 17:22 17:22 WBC 3.8 L (4.0-10.5) K/mm3 Hct 41.3 L (42.0-52.0) % Monocytes % 10.6 H (0.0-9) % Basophils % 1.1 H (0.0-1.0) % Lymphocytes # 1.20 L (1.5-3.5) k/mm3 D-Dimer 0.70 H (0.19-0.49) ug/mL Carbon Dioxide 23.2 L (24-32.6) mmol/L Anion Gap 17.3 H (6.8-13.8) mmol/L BUN 5 L D (6-23) mg/dL BUN/Creatinine Ratio 5.4 L (9.0-21.6) Random Glucose 137 H (70-110) mg/dL Calcium Adj for Albumin 8.2 L (8.4-10.2) mg/dL AST 49 H (0-48) U/L LDL Cholesterol 61 L (70-130) mg/dL HDL Cholesterol 95 H (40-60) mg/dL Cholesterol/HDL Ratio 1.8 L (3.3-5.0) mg/dL Urine pH (5.0-7.0) pH Urine Marijuana (THC) (NEGATIVE) 03/07/18 03/07/18 Range/Units 21:00 21:00 WBC (4.0-10.5) K/mm3 Hct (42.0-52.0) % Monocytes % (0.0-9) % Basophils % (0.0-1.0) % Lymphocytes # (1.5-3.5) k/mm3 D-Dimer (0.19-0.49) ug/mL Carbon Dioxide (24-32.6) mmol/L Anion Gap (6.8-13.8) mmol/L BUN (6-23) mg/dL BUN/Creatinine Ratio (9.0-21.6) Random Glucose (70-110) mg/dL Calcium Adj for Albumin (8.4-10.2) mg/dL AST (0-48) U/L LDL Cholesterol (70-130) mg/dL HDL Cholesterol (40-60) mg/dL Cholesterol/HDL Ratio (3.3-5.0) mg/dL Urine pH 8.0 H (5.0-7.0) pH Urine Marijuana (THC) Positive H (NEGATIVE) Laboratory Results WBC 3.8 K/mm3 (4.0-10.5) L 03/07/18 17:22 RBC 4.81 M/mm3 (4.7-6.0) 03/07/18 17:22 Hgb 14.2 gm/dL (13.5-18.0) 03/07/18 17:22 Hct 41.3 % (42.0-52.0) L 03/07/18 17:22 MCV 85.9 fl (78-100) 03/07/18 17:22 MCH 29.5 pg (27-31) 03/07/18 17:22 MCHC 34.4 g/dl (32-36) 03/07/18 17:22 RDW 11.9 % (11.5-14.0) 03/07/18 17:22 Plt Count 176 K/mm3 (150-450) 03/07/18 17:22 MPV 8.9 fl (8-11.3) 03/07/18 17:22 Immature Gran % (Auto) 0.30 % (0.001-0.429) 03/07/18 17:22 Immature Gran # (Auto) 0.01 K/mm3 (0.000-0.0310) 03/07/18 17:22 Neutrophils % 54.4 % (42-75.0) 03/07/18 17:22 Lymphocytes % 31.7 % (20-51) 03/07/18 17:22 Monocytes % 10.6 % (0.0-9) H 03/07/18 17:22 Eosinophils % 1.9 % (0.0-3.0) 03/07/18 17:22 Basophils % 1.1 % (0.0-1.0) H 03/07/18 17:22 Nucleated RBC % 0.0 k/mm3 (0-1) 03/07/18 17:22 Neutrophils # 2.1 K/mm3 (1.3-6.0) 03/07/18 17:22 Lymphocytes # 1.20 k/mm3 (1.5-3.5) L 03/07/18 17:22 Monocytes # 0.4 k/mm3 (0.0-1.0) 03/07/18 17: Eosinophils # 0.1 k/mm3 (0.0-0.7) 03/07/18 17: Absolute Basophils 0.0 k/mm3 (0.0-0.1) 03/07/18 17:22 D-Dimer 0.70 ug/mL (0.19-0.49) H 03/07/18 17:22 Sodium 134 mmol/L (132-142) 03/07/18 17:22 Plasma Sodium 135 mmol/L (130-142) 03/07/18 17:22 Potassium 3.5 mmol/L (3.4-4.6) 03/07/18 17:22 Chloride 97 mmol/L (97-106) 03/07/18 17:22 Carbon Dioxide 23.2 mmol/L (24-32.6) L 03/07/18 17:22 Anion Gap 17.3 mmol/L (6.8-13.8) H 03/07/18 17:22 BUN 5 mg/dL (6-23) L D 03/07/18 17:22 Creatinine 0.92 mg/dL (0.4-1.4) 03/07/18 17:22 Est GFR (Non-Af Amer) 89 mL/min (60-130) D 03/07/18 17:22 BUN/Creatinine Ratio 5.4 (9.0-21.6) L 03/07/18 17:22 Random Glucose 137 mg/dL (70-110) H 03/07/18 17:22 Calcium 8.4 mg/dL (7.9-10.9) 03/07/18 17:22 Calcium Adj for Albumin 8.2 mg/dL (8.4-10.2) L 03/07/18 17:22 Total Bilirubin 0.9 mg/dL (0.0-1.1) 03/07/18 17:22 AST 49 U/L (0-48) H 03/07/18 17:22 ALT 52 U/L (19-67) 03/07/18 17:22 Alkaline Phosphatase 66 U/L (50-170) 03/07/18 17:22 Troponin I Less than 0.017 ng/ml (0.00-0.10) 03/07/18 17:22 Total Protein 7.1 gm/dL (6.2-8.2) 03/07/18 17:22 Albumin 3.8 gm/dl (3.4-5.0) 03/07/18 17:22 Triglycerides 104 mg/dL (30-200) 03/07/18 17:22 Cholesterol 177 mg/dL (0-200) 03/07/18 17:22 LDL Cholesterol 61 mg/dL (70-130) L 03/07/18 17:22 VLDL Cholesterol 21 mg/dL (5-40) 03/07/18 17:22 HDL Cholesterol 95 mg/dL (40-60) H 03/07/18 17:22 Cholesterol/HDL Ratio 1.8 mg/dL (3.3-5.0) L 03/07/18 17:22 Urine Color Yellow 03/07/18 21:00 Urine Appearance Clear (CLEAR) 03/07/18 21:00 Urine pH 8.0 pH (5.0-7.0) H 03/07/18 21:00 Ur Specific [place] 1.010 SP.GR. (1.005-1.030) 03/07/18 21:00 Urine Protein Negative mg/dL (NEGATIVE) 03/07/18 21:00 Urine Glucose (UA) Negative mg/dL (NEGATIVE) 03/07/18 21:00 Urine Ketones Negative mg/dL (NEGATIVE) 03/07/18 21:00 Urine Blood Negative /ul (NEGATIVE) 03/07/18 21:00 Urine Nitrate Negative (NEGATIVE) 03/07/18 21:00 Urine Bilirubin Negative mg/dl (NEGATIVE) 03/07/18 21:00 Urine Urobilinogen Normal EU/dl (NORMAL) 03/07/18 21:00 Ur Leukocyte Esterase Negative /ul (NEGATIVE) 03/07/18 21:00 Urine RBC None seen /hpf (0-5) 03/07/18 21:00 Urine WBC None seen /hpf (0-5) 03/07/18 21:00 Ur Epithelial Cells None seen /hpf (0-5) 03/07/18 21:00 Urine Bacteria None seen (NONE) 03/07/18 21:00 Urine Culture Comments No culture indicated 03/07/18 21:00 Urine Opiates Screen Negative (NEGATIVE) 03/07/18 21:00 Barbiturate Screen Negative (NEGATIVE) 03/07/18 21:00 Ur Phencyclidine Scrn Negative (NEGATIVE) 03/07/18 21:00 Urine Amphetamine Negative (NEGATIVE) 03/07/18 21:00 U Benzodiazepines Scrn Negative (NEGATIVE) 03/07/18 21:00 Urine Cocaine Screen Negative (NEGATIVE) 03/07/18 21:00 Urine Marijuana (THC) Positive (NEGATIVE) H 03/07/18 21:00 Ethyl Alcohol 3.0 mg/dL (0.0-10.0) 03/07/18 17:22 Assessment/Plan - Narrative Narrative: Rafiq is a 62 yo male with chest pain. Initial evaluation in the ER was negative for acute NC. Patient with symptoms of acute bronchitis. This is likely the source of chest pain. Will evaluate with telemtry and repeat EKG/ Troponin. Will treat bronchitis with azithromycin. - Assessment/Plan (1) Chest pain Problem: Acute Qualifiers: Chest pain type: unspecified Qualified Code(s): R07.9 - Chest pain, unspecified (2) Bronchitis Problem: Acute
[2018-03-08] MEDS ORDERED: IBUPROFEN 800 MG TABLET PO PRN (07:20)
[2018-03-08] MEDS ORDERED: amLODIPine BESYLATE 10 MG TABLET PO SCH (09:00)
[2018-03-08] MEDS ORDERED: predniSONE 20 MG TABLET PO SCH (09:00)
[2018-03-08] MEDS ORDERED: AZITHROMYCIN 250 MG TABLET PO SCH (09:00)
--- NOTE | 2018-03-08 09:15 | DS ---
(1) Chest pain Problem: Acute Qualifiers: Chest pain type: unspecified Qualified Code(s): R07.9 - Chest pain, unspecified (2) Bronchitis Problem: Acute (3) Essential hypertension Problem: Acute (4) Alcoholism /alcohol abuse Problem: Acute Description of Stay: Rafiq is a 62 yo male admitted with chest pain. He has a history of hypertension, alcoholism, and CAD. He reports he has not been taking any medications lately. He has also been coughing for the past week. Evaluation in the ER showed no evidence of acute IL and his chest xray was clear of acute problems. He was admitted with serial troponins and monitoring on telemetry. There were no significant findings on telemetry and troponins were negative. Clinically he has evidence of bronchitis and will treat with azithromycin and steroids. He had high blood pressure during hospitalization and was previously on amlodipine, although he has not been taking this. Having been ruled out for myocardial infarction he will be discharged to home. I believe chest pain is due to costochondritis from his bronchitis. Will treat with zpak and prednisone. He will be restarted on his amlodipine and will follow up in clinic with his PCP Nereyda Tamayo. Procedures Performed: none Results and Findings: Lab Pending Results 03/07/18 03/07/18 03/07/18 17:22 17:22 17:22 WBC 3.8 L RBC 4.81 Hgb 14.2 Hct 41.3 L MCV 85.9 MCH 29.5 MCHC 34.4 RDW 11.9 Plt Count 176 MPV 8.9 Immature Gran % (Auto) 0.30 Immature Gran # (Auto) 0.01 Neutrophils % 54.4 Lymphocytes % 31.7 Monocytes % 10.6 H Eosinophils % 1.9 Basophils % 1.1 H Nucleated RBC % 0.0 Neutrophils # 2.1 Lymphocytes # 1.20 L Monocytes # 0.4 Eosinophils # 0.1 Absolute Basophils 0.0 D-Dimer Sodium 134 Plasma Sodium 135 Potassium 3.5 Chloride 97 Carbon Dioxide 23.2 L Anion Gap 17.3 H BUN 5 L D Creatinine 0.92 Est GFR (Non-Af Amer) 89 D BUN/Creatinine Ratio 5.4 L Random Glucose 137 H Calcium 8.4 Calcium Adj for Albumin 8.2 L Total Bilirubin 0.9 AST 49 H ALT 52 Alkaline Phosphatase 66 Troponin I Less than 0.017 Total Protein 7.1 Albumin 3.8 Triglycerides 104 Cholesterol 177 LDL Cholesterol 61 L VLDL Cholesterol 21 HDL Cholesterol 95 H Cholesterol/HDL Ratio 1.8 L Urine Color Urine Appearance Urine pH Ur Specific [place] Urine Protein Urine Glucose (UA) Urine Ketones Urine Blood Urine Nitrate Urine Bilirubin Urine Urobilinogen Ur Leukocyte Esterase Urine RBC Urine WBC Ur Epithelial Cells Urine Bacteria Urine Culture Comments Urine Opiates Screen Barbiturate Screen Ur Phencyclidine Scrn Urine Amphetamine U Benzodiazepines Scrn Urine Cocaine Screen Urine Marijuana (THC) Ethyl Alcohol 3.0 03/07/18 03/07/18 03/07/18 17:22 21:00 21:00 WBC RBC Hgb Hct MCV MCH MCHC RDW Plt Count MPV Immature Gran % (Auto) Immature Gran # (Auto) Neutrophils % Lymphocytes % Monocytes % Eosinophils % Basophils % Nucleated RBC % Neutrophils # Lymphocytes # Monocytes # Eosinophils # Absolute Basophils D-Dimer 0.70 H Sodium Plasma Sodium Potassium Chloride Carbon Dioxide Anion Gap BUN Creatinine Est GFR (Non-Af Amer) BUN/Creatinine Ratio Random Glucose Calcium Calcium Adj for Albumin Total Bilirubin AST ALT Alkaline Phosphatase Troponin I Total Protein Albumin Triglycerides Cholesterol LDL Cholesterol VLDL Cholesterol HDL Cholesterol Cholesterol/HDL Ratio Urine Color Yellow Urine Appearance Clear Urine pH 8.0 H Ur Specific [place] 1.010 Urine Protein Negative Urine Glucose (UA) Negative Urine Ketones Negative Urine Blood Negative Urine Nitrate Negative Urine Bilirubin Negative Urine Urobilinogen Normal Ur Leukocyte Esterase Negative Urine RBC None seen Urine WBC None seen Ur Epithelial Cells None seen Urine Bacteria None seen Urine Culture Comments No culture indicated Urine Opiates Screen Negative Barbiturate Screen Negative Ur Phencyclidine Scrn Negative Urine Amphetamine Negative U Benzodiazepines Scrn Negative Urine Cocaine Screen Negative Urine Marijuana (THC) Positive H Ethyl Alcohol 03/07/18 23:40 WBC RBC Hgb Hct MCV MCH MCHC RDW Plt Count MPV Immature Gran % (Auto) Immature Gran # (Auto) Neutrophils % Lymphocytes % Monocytes % Eosinophils % Basophils % Nucleated RBC % Neutrophils # Lymphocytes # Monocytes # Eosinophils # Absolute Basophils D-Dimer Sodium Plasma Sodium Potassium Chloride Carbon Dioxide Anion Gap BUN Creatinine Est GFR (Non-Af Amer) BUN/Creatinine Ratio Random Glucose Calcium Calcium Adj for Albumin Total Bilirubin AST ALT Alkaline Phosphatase Troponin I Less than 0.017 Total Protein Albumin Triglycerides Cholesterol LDL Cholesterol VLDL Cholesterol HDL Cholesterol Cholesterol/HDL Ratio Urine Color Urine Appearance Urine pH Ur Specific [place] Urine Protein Urine Glucose (UA) Urine Ketones Urine Blood Urine Nitrate Urine Bilirubin Urine Urobilinogen Ur Leukocyte Esterase Urine RBC Urine WBC Ur Epithelial Cells Urine Bacteria Urine Culture Comments Urine Opiates Screen Barbiturate Screen Ur Phencyclidine Scrn Urine Amphetamine U Benzodiazepines Scrn Urine Cocaine Screen Urine Marijuana (THC) Ethyl Alcohol Discharge Location: Home Disposition: Home self-care Condition: Stable Discharge Activity: Activity as tolerated Discharge Diet: Low salt Referrals: Nereyda Tamayo FNP [Primary Care Provider] - One Week Problem Oriented Discharge Instructions to Patient/Family: DASH Eating Plan, Hypertension, [id number], Chest Pain Observation Prescriptions (Any new or edited meds): amLODIPine BESYLATE [Norvasc] 10 mg PO DAILY #30 tab Azithromycin [Zithromax] 250 mg PO DAILY #3 tab predniSONE [Prednisone] 40 mg PO DAILY #10 tab Complete Home Medications List: Complete Home Medication List: Azithromycin [Zithromax] 250 mg PO DAILY #3 tab 03/08/18 amLODIPine BESYLATE [Norvasc] 10 mg PO DAILY #30 tab 03/08/18 predniSONE [Prednisone] 40 mg PO DAILY #10 tab 03/08/18
[2018-03-08 11:09] VITALS: BP 150/72
== END 2018-03-08 11:12 | disposition home or self-care (01) ==
LOC: MS 17:07 → ER 17:07 → MS 20:19
PROVIDERS: ADMIT Family Medicine; ATTEND Family Medicine
CPT/HCPCS: 36415; 71010; 71045; 71275; 80053; 80061; 80307; 80320; 81001; 84484; 85025; 85379; 93005; 94640; 94664; 96365; 96372; 96375; 99285; G0378; G0479; G0481

== ENCOUNTER 2020-07-01 21:26 | Inpatient (IN) ==
[2020-07-01] MEDS ORDERED: ONDANSETRON HCL/PF 2 MG/ML VIAL IV ONE (21:54)
[2020-07-01 22:01] LABS: Hematocrit 38.2 % (42.0-52.0); Mean Cell Volume 85.7 fl (78-100); Mean Corpuscular Hemoglobin 29.1 pg (27-31); Mean Platelet Volume 9.5 fl (8-11.3); Neutrophil # 2.8 K/mm3 (1.3-6.0); Neutrophil % 56.7 % (42-75.0); Platelet Count 234 K/mm3 (150-450); Red Blood Count 4.46 M/mm3 (4.7-6.0); Red Cell Distribution Width 12.5 % (11.5-14.0); White Blood Count 4.9 K/mm3 (4.0-10.5)
[2020-07-01] MEDS: NITROGLYCERIN 0.4 MG/TAB BTL SL PRN ×3 (22:01→22:11)
--- NOTE | 2020-07-01 22:01 | ERNOTE ---
Chest Pain/Cardiac HPI Chief Complaint: Chest Pain Time Seen by Provider: 07/01/20 21:37 Source: patient Exam Limitations: no limitations Immunizations: IMMUNIZATION HX Immunizations Up to Date Yes History of Influenza Vaccine No Hx Pneumococcal Vaccination No Allergies/Adverse Reactions: Allergies No Known Allergies Allergy (Verified 05/17/20 18:34) Home Medications: HOME MEDICATIONS acetaminophen 325 mg tablet 650 mg PO BID #120 tab 01/12/20 [Last Taken Unknown] amlodipine 10 mg tablet 10 mg PO DAILY #30 tab 01/12/20 [Last Taken Unknown] hydroxyzine pamoate 25 mg capsule 25 mg PO TID PRN #30 cap 01/12/20 [Last Taken Unknown] baclofen 10 mg tablet 10 mg PO BID PRN #60 tab 01/26/20 [Last Taken 05/17/20 10:00] Narrative: Presents with chest pain cough and shortness of breath that had onset just after eating. He states it feels like a 500 pound man is sitting on his chest. He states he had a little bit of nausea but that went away. He rates it a 10 out of 10 Timing: constant Severity/Quality: severe Location: central Chest Pain Radiation: no radiation Activities at Onset: other - After eating Nitro Today/Relief: 0.4 mg x 1, provided by EMS, no relief Prior Chest Pain/Cardiac Workup: Reports: prior chest pain Review of Systems - Review of Systems Constitutional: Present: recent illness, fever EYE: Present: vision changes ENT: Absent: nose congestion, nasal drainage Respiratory: Present: shortness of breath, cough Cardiology: Present: See HPI, chest pain, edema Gastrointestinal/Abdominal: Present: nausea, abdominal pain. Absent: vomiting Genitourinary: Absent: frequency, dysuria Musculoskeletal: Absent: back pain, muscle pain Skin: Absent: rash Neurological: Present: dizziness/light-headedness. Absent: headache Hematologic/Lymphatic: Absent: easy bruising, easy bleeding Medical History (Last Reviewed 07/01/20 @ 21:51 by Eric Mixon DO) Neck pain (Chronic) Hypertension (Chronic) Alcohol abuse Onset Date: Unknown Elevated liver enzymes Onset Date: Unknown Ligament tear Onset Date: Unknown fell and injured R knee, had ligaments repaired surgically Tatum-Sofia tear Back pain Onset Date: Unknown fell off ladder history of finger surgery Onset Date: Unknown right 2nd finger Surgical History: Surgical History (Last Reviewed 07/01/20 @ 21:51 by Eric Mixon DO) Bunion Onset Date: Unknown surgically removed from each foot H/O knee surgery Onset Date: Unknown right History of esophagogastroduodenoscopy (EGD) Onset Date: 12/19/16 12/18/16 [facility]-huge blood clot extending from the proximal to distal esophagus. 12/19/16 [facility]-large esophageal tear in the distal esophagus w/exposed muscle fiber. Family History: Family History (Last Reviewed 07/01/20 @ 21:51 by Eric Mixon DO) Father , age 59-COPD COPD (chronic obstructive pulmonary disease) Alcoholism Mother , age 48-diabetic complications Diabetes Hypertension Sister , age 70's-breast ca Cancer breast ca Brother Alive and well 5 brothers Social History: (Last Reviewed 07/01/20 @ 21:52 by Eric Mixon DO) Social History: adopted: No foster care: No penitentiary: No Marital status: Single lives independently: No household members: other number of children: 0 caregiver/support person: No current occupational status: disabled Service: No Tobacco: Smoking Status: Current some day smoker tobacco type: smokeless tobacco Smokeless tobacco user: chewing tobacco Alcohol: alcohol intake: current Alcohol type: beer alcohol intake frequency: a few times a week Substance Use: substance use type: marijuana details: marijuana Dietary Habits: caffeine: Yes Type: coffee Personal Safety: victim of physical abuse: No victim of emotional abuse: No Physical Exam - Physical Exam General Appearance: Present: wd/wn, alert, moderate distress Head Exam: Present: normal inspection, no evidence of injury Eye Exam: Normal inspection: bilateral Neck: Present: normal inspection, nontender, supple Respiratory: Present: no respiratory distress, normal breath sounds, lungs clear Cardiovascular/Chest: Present: no murmur, tachycardia Gastrointestinal/Abdominal: Present: normal bowel sounds, nondistended, soft, tenderness - mild and diffuse Back Exam: Present: normal inspection, normal range of motion Extremity Exam: Present: normal inspection, normal range of motion, pedal edema, extremity edema - +1 Neurological Exam: Present: alert, oriented, normal mood/affect Skin Exam: Present: normal color, warm/dry Lymphatic Exam: Present: no adenopathy Progress - Results and Orders Patient's Lab Results:: I have reviewed the patient's lab results. Results and Orders: Laboratory Tests 07/01/20 07/01/20 07/01/20 21:45 21:45 21:45 WBC 4.9 Hgb 13.0 L Hct 38.2 L Plt Count 234 PT 10.0 INR (Anticoag Therapy) 1.01 PTT (Dc) 26.2 Sodium 134 Potassium 3.6 Chloride 98 Carbon Dioxide 21.6 L Anion Gap 18.0 H BUN 10 Creatinine 1.12 Random Glucose 243 H Calcium 8.3 Total Bilirubin 1.0 AST 33 ALT 32 Alkaline Phosphatase 54 Troponin I Less than 0.017 - Vital Signs Patient's Vital Signs:: I have reviewed the patient's vital signs. Vital Signs: Vital Signs 07/01/20 21:29 Temperature 38.1 C H Pulse Rate 123 H Respiratory Rate 16 Blood Pressure 149/75 O2 Sat by Pulse Oximetry 95 - EKG EKG #1 EKG: supraventricular tachycardia, ST elevation - Subtle II, III EKG read: Interp. by me EKG #2 EKG: supraventricular tachycardia, no ST T wave changes EKG read: Interp. by me EKG #3 EKG: supraventricular tachycardia, ST elevation - Subtle II, III EKG read: Interp. by me - X-Ray X-Ray #1 X-Ray: chest Interpretation: Interp. by me X-ray Comments: No infiltrate or effusion. Cardiac silhouette appears normal. Bony elements intact. No pneumothorax - CT/Ultrasound CT/Ultrasound Narrative: CTA chest. 1. No gross central or proximal segmental findings to indicate clinically significant pulmonary embolism. 2. Fusiform aortic root aneurysm no dissection or evidence of rupture. 3. Nonspecific noncalcified intrapulmonary nodularity. Stable from prior CTA 4. Cholelithiasis present within the gallbladder. No CT evidence for acute cholecystitis - Progress/Reassessment Chief Complaint: Chest Pain Progress:: Improved Progress Note-Subjective: 07/01/20 21:48 I faxed the EKGs to [facility] ED and spoke with Dr. Pittman about the subtle changes that are seen in 2 of the 3 EKGs and he felt as I do that this would not meet criteria for a STEMI and he would just require rule out . 07/02/20 00:[address] Turner and she asked for a D-dimer, I will get the D-dimer and call her back. 07/02/20 03:[address] Turner about negative Covid, negative CTA and she agrees with admit. Departure Clinical Impression: COPD with acute exacerbation Sepsis Qualifiers: Sepsis type: sepsis due to unspecified organism Sepsis acute organ dysfunction status: with acute organ dysfunction Severe sepsis acute organ dysfunction type: critical illness myopathy Severe sepsis shock status: without septic shock Qualified Code(s): A41.9 - Sepsis, unspecified organism - Departure Disposition: Still a patient Condition: Good Sepsis Reassessment Note Time:: 03:12 Narrative: Last Vital Signs Temp 37.2 C 07/02/20 00:32 Pulse 85 07/02/20 02:49 Resp 18 07/02/20 02:49 BP 167/89 H 07/02/20 02:49 Pulse Ox 92 L 07/02/20 02:49 Vitals reviewed: Yes Narrative: Patient remains stable blood pressure is within normal limits. Heart Sounds: Regular Breath Sounds: Wheezes - occasional Peripheral Pulse: Radial Peripheral Pulse Strength: Normal Capillary Refill: < 3 seconds Skin Color/Condition: Warm
[2020-07-01] MEDS: NORMAL SALINE 1,000 ML IV ONE (22:03)
[2020-07-01 22:13] LABS: INR 1.01 INR (0.92-1.08); Partial Thrombolplastin Time 26.2 Seconds (24-32)
[2020-07-01 22:20] LABS: ALT 32 U/L (19-67); AST 33 U/L (0-48); Albumin * 3.7 gm/dl (3.4-5.0); Alkaline Phosphatase * 54 U/L (50-170); BUN/Creatinine Ratio 8.9 (9.0-21.6); Blood Urea Nitrogen 10 mg/dL (6-23); Ca. Corrected For Albumin 8.2 mg/dL (8.4-10.2); Calcium * 8.3 mg/dL (7.9-10.9); Carbon Dioxide 21.6 mmol/L (24-32.6); Chloride 98 mmol/L (97-106); Glucose * 243 mg/dL (70-110); Potassium 3.6 mmol/L (3.4-4.6); Sodium 134 mmol/L (132-142); Troponin I Less than 0.017 ng/mL (0.00-0.10)
[2020-07-01] MEDS ORDERED: MORPHINE SULFATE 2 MG/ML DISP.SYRIN IV ONE (22:50)
[2020-07-01] MEDS ORDERED: MORPHINE SULFATE 2 MG/ML DISP.SYRIN ONE (22:50)
[2020-07-01] MEDS ORDERED: KETOROLAC TROMETHAMINE 30 MG/ML VIAL IV ONE (23:09)
[2020-07-01] MEDS ORDERED: NORMAL SALINE 1,000 ML IV ONE (23:28)
[2020-07-02] MEDS: NORMAL SALINE 1,000 ML IV PRN ×4 (00:34→21:57)
[2020-07-02] MEDS ORDERED: cefTRIAXone SODIUM 1,000 MG/100 ML BAG IV ONE (02:13)
[2020-07-02] MEDS ORDERED: ACETAMINOPHEN 1,000 MG/100 ML BTL IV ONE (03:42)
[2020-07-02] MEDS ORDERED: IBUPROFEN 800 MG TABLET PO PRN (10:09)
[2020-07-02] MEDS ORDERED: hydrOXYzine PAMOATE 25 MG CAPSULE PO PRN (12:29)
[2020-07-02] MEDS ORDERED: ACETAMINOPHEN 325 MG TABLET PO PRN (12:29)
[2020-07-02] MEDS ORDERED: BACLOFEN 10 MG TABLET PO PRN (12:29)
[2020-07-02] MEDS ORDERED: ONDANSETRON HCL/PF 2 MG/ML VIAL IV PRN (12:52)
[2020-07-02] MEDS: amLODIPine BESYLATE 10 MG TABLET PO SCH (12:55)
[2020-07-02] MEDS ORDERED: LORazepam 1 MG TABLET PO PRN (13:06)
--- NOTE | 2020-07-02 13:21 | HP ---
Chief Complaint - Chief Complaint Date of Service: 07/02/20 Time of Service: 13:09 Chief Complaint: I have chest pain every time I eat. History of Present Illness: 64-year-old male with past medical history of alcohol abuse, James's esophagus, Tatum-Sofia tear, hypertension, and aortic aneurysm was evaluated in the ER for worsening chest pain that started yesterday evening shortly after dinner. Patient reports for over a year he has had difficulty swallowing and significant pain in his esophagus when he swallows. The patient has a long history of abusing alcohol and was hospitalized several years ago for Tatum- Sofia tear that was almost fatal, he reports being in ICU for several days after undergoing a procedure to repair the tear. Since then the patient has continued drinking alcohol and was told by his PCP that he has James's esophagus, it is not known when the last time this was evaluated or if he had his recommended screenings for James's. Yesterday evening his chest pain became so painful that he had to come to the ER, once in the ER the patient underwent a follow-up that included an EKG and cardiac troponins. His troponins were negative however his EKG was abnormal and concerning for possible NE, the EKG was sent to [place] cardiology service who ruled out an NE but recommended keeping the patient overnight for further rule out other NE. The patient reports after being admitted his pain started getting better but has now returned after he tried to eat lunch. He also reports generalized body ache but is unable to explain what causes pain, this pain is usually treated with ibuprofen which I suspect played a role in his GI issues so the medication was held. He also normally takes baclofen for muscle spasms so this medication will be given on a as needed basis during hospitalization. Given the patient's long history of abusing alcohol we will admit him with alcohol withdrawal protocols and order benzodiazepines on a as needed basis. Medical History (Last Reviewed 07/02/20 @ 04:56 by Fatmata Ochoa RN) Neck pain (Chronic) Hypertension (Chronic) Alcohol abuse Onset Date: Unknown Elevated liver enzymes Onset Date: Unknown Ligament tear Onset Date: Unknown fell and injured R knee, had ligaments repaired surgically Tatum-Sofia tear Back pain Onset Date: Unknown fell off ladder history of finger surgery Onset Date: Unknown right 2nd finger Surgical History: Surgical History (Last Reviewed 07/02/20 @ 12:56 by Elba Turner MD) Bunion Onset Date: Unknown surgically removed from each foot H/O knee surgery Onset Date: Unknown right History of esophagogastroduodenoscopy (EGD) Onset Date: 12/19/16 12/18/16 [facility]-huge blood clot extending from the proximal to distal esophagus. 12/19/16 [facility]-large esophageal tear in the distal esophagus w/exposed muscle fiber. Family History: Family History (Last Reviewed 07/02/20 @ 04:56 by Fatmata Ochoa RN) Father , age 59-COPD COPD (chronic obstructive pulmonary disease) Alcoholism Mother , age 48-diabetic complications Diabetes Hypertension Sister , age 70's-breast ca Cancer breast ca Brother Alive and well 5 brothers Social History: (Last Reviewed 07/01/20 @ 21:52 by Eric Mixon DO) Social History: adopted: No foster care: No fpc: No Marital status: Single lives independently: No household members: other number of children: 0 caregiver/support person: No current occupational status: disabled Service: No Tobacco: Smoking Status: Current some day smoker tobacco type: smokeless tobacco Smokeless tobacco user: chewing tobacco Alcohol: alcohol intake: current Alcohol type: beer alcohol intake frequency: a few times a week Substance Use: substance use type: marijuana details: marijuana Dietary Habits: caffeine: Yes Type: coffee Personal Safety: victim of physical abuse: No victim of emotional abuse: No Peds Patient Hx - Developmental: No Pertinent Hx Peds Patient Hx - Medical: No Pertinent Hx Peds Patient Hx - Cardiac/Respiratory: No Pertinent Hx Peds Patient Hx - Surgical: No Surgical History Patient History - Cancer: No Hx of Cancer Review Of Systems (GEN) - Review of Systems Generalized/Overall Review: Present: No Symptoms Reported EENTM: Present: No Symptoms Reported Respiratory: Present: Cough Cardiac: Present: Chest Pain Abdominal: Present: Other - Pain on swallowing Genitourinary: Present: No Symptoms Reported Musculoskeletal: Present: Joint Pain - Multiple joint pain Skin: Present: No Symptoms Reported Endocrine: Present: No Symptoms Reported Immunizations: IMMUNIZATION HX Immunizations Up to Date Yes History of Influenza Vaccine No Hx Pneumococcal Vaccination No Allergies/Adverse Reactions: Allergies Allergy/AdvReac Type Severity Reaction Status Date / Time No Known Allergies Allergy Verified 05/17/20 18:34 Home Medications: HOME MEDICATIONS acetaminophen 325 mg tablet 650 mg PO BID #120 tab 01/12/20 [Last Taken Unknown] amlodipine 10 mg tablet 10 mg PO DAILY #30 tab 01/12/20 [Last Taken Unknown] hydroxyzine pamoate 25 mg capsule 25 mg PO TID PRN #30 cap 01/12/20 [Last Taken Unknown] baclofen 10 mg tablet 10 mg PO BID PRN #60 tab 01/26/20 [Last Taken 05/17/20 10:00] Exam - Exam Vital Signs: Vital Signs - Last Taken Temp 36.7 C 07/02/20 10:00 Pulse 85 07/02/20 12:55 Resp 20 07/02/20 10:00 BP 160/89 H 07/02/20 12:55 Pulse Ox 93 07/02/20 10:00 Constitutional: Present: Alert, Oriented x3, Cooperative, Well developed, Well nourished, Mild distress, Elderly ENT Exam: Present: normal ENT inspection, hard of hearing Eye Exam: bilateral eye: normal inspection, PERRL, EOMI Neck: Present: non-tender, full range of motion, supple, normal inspection, trachea midline Back Exam: Present: normal inspection, no CVA tenderness, no vertebral tendernes s Breasts: Present: Exam deferred, Nontender Respiratory: Present: chest non-tender, lungs clear, normal breath sounds, no respiratory distress, no accessory muscle use Cardiovascular/Chest: Present: normal peripheral pulses, regular rate, rhythm, no chest tenderness, no edema, no gallop, no JVD, no murmur, no rub Peripheral Pulses: dorsalis-pedis (R): 3+, dorsalis-pedis (L): 3+ Abdomen: Present: Normal bowel sounds, soft, nondistended, no rebound tenderness, no hepatospenomegaly, no masses, tender - Epigastric tenderness /Rectal: Present: Exam deferred Extremity: Present: normal range of motion, non-tender, normal inspection, no pedal edema, no calf tenderness, normal capillary refill, pelvis stable Skin Exam: Present: normal color, warm/dry, no cyanosis Lymphatic: Present: no adenopathy Neurologic: Present: field hauler II-XII nml as tested, no motor/sensory deficits, alert, normal mood/affect, oriented x 3 Appearance: Present: appropriate appearance, appropriate insight, disheveled Eye contact: Present: cooperative, good eye contact, normal speech Thoughts: Present: normal thought pattern, no apparent hallucination Diagnostic Studies: Abnormal Lab Results 07/01/20 07/01/20 07/01/20 Range/Units 21:30 21:45 21:45 RBC 4.46 L (4.7-6.0) M/mm3 Hgb 13.0 L (13.5-18.0) gm/dL Hct 38.2 L (42.0-52.0) % Immature Gran % (Auto) 0.80 H (0.001-0.429) % Immature Gran # (Auto) 0.04 H (0.000-0.0310) K/mm3 Basophils % 1.4 H (0.0-1.0) % Lymphocytes # 1.46 L (1.5-3.5) k/mm3 D-Dimer (0.19-0.49) ug/mL Carbon Dioxide 21.6 L (24-32.6) mmol/L Anion Gap 18.0 H (6.8-13.8) mmol/L BUN/Creatinine Ratio 8.9 L (9.0-21.6) Random Glucose 243 H (70-110) mg/dL Lactic Acid, Venous 5.2 H* (0.4-2.0) mmol/L Calcium Adj for Albumin 8.2 L (8.4-10.2) mg/dL 07/01/20 Range/Units 21:45 RBC (4.7-6.0) M/mm3 Hgb (13.5-18.0) gm/dL Hct (42.0-52.0) % Immature Gran % (Auto) (0.001-0.429) % Immature Gran # (Auto) (0.000-0.0310) K/mm3 Basophils % (0.0-1.0) % Lymphocytes # (1.5-3.5) k/mm3 D-Dimer 0.57 H (0.19-0.49) ug/mL Carbon Dioxide (24-32.6) mmol/L Anion Gap (6.8-13.8) mmol/L BUN/Creatinine Ratio (9.0-21.6) Random Glucose (70-110) mg/dL Lactic Acid, Venous (0.4-2.0) mmol/L Calcium Adj for Albumin (8.4-10.2) mg/dL Laboratory Results WBC 4.9 K/mm3 (4.0-10.5) 07/01/20 21:45 RBC 4.46 M/mm3 (4.7-6.0) L 07/01/20 21:45 Hgb 13.0 gm/dL (13.5-18.0) L 07/01/20 21:45 Hct 38.2 % (42.0-52.0) L 07/01/20 21:45 MCV 85.7 fl (78-100) 07/01/20 21:45 MCH 29.1 pg (27-31) 07/01/20 21:45 MCHC 34.0 g/dl (32-36) 07/01/20 21:45 RDW 12.5 % (11.5-14.0) 07/01/20 21:45 Plt Count 234 K/mm3 (150-450) 07/01/20 21:45 MPV 9.5 fl (8-11.3) 07/01/20 21:45 Immature Gran % (Auto) 0.80 % (0.001-0.429) H 07/01/20 21:45 Immature Gran # (Auto) 0.04 K/mm3 (0.000-0.0310) H 07/01/20 21:45 Neutrophils % 56.7 % (42-75.0) 07/01/20 21:45 Lymphocytes % 29.6 % (20-51) 07/01/20 21:45 Monocytes % 8.9 % (0.0-9) 07/01/20 21:45 Eosinophils % 2.6 % (0.0-3.0) 07/01/20 21:45 Basophils % 1.4 % (0.0-1.0) H 07/01/20 21:45 Nucleated RBC % 0.0 k/mm3 (0-1) 07/01/20 21:45 Neutrophils # 2.8 K/mm3 (1.3-6.0) 07/01/20 21:45 Lymphocytes # 1.46 k/mm3 (1.5-3.5) L 07/01/20 21:45 Monocytes # 0.4 k/mm3 (0.0-1.0) 07/01/20 21:45 Eosinophils # 0.1 k/mm3 (0.0-0.7) 07/01/20 21:45 Absolute Basophils 0.1 k/mm3 (0.0-0.1) 07/01/20 21:45 PT 10.0 Seconds (9.1-10.7) 07/01/20 21:45 INR (Anticoag Therapy) 1.01 INR (0.92-1.08) 07/01/20 21:45 PTT (Dc) 26.2 Seconds (24-32) 07/01/20 21:45 D-Dimer 0.57 ug/mL (0.19-0.49) H 07/01/20 21:45 Sodium 134 mmol/L (132-142) 07/01/20 21:45 Plasma Sodium 136 mmol/L (130-142) 07/01/20 21:45 Potassium 3.6 mmol/L (3.4-4.6) 07/01/20 21:45 Chloride 98 mmol/L (97-106) 07/01/20 21:45 Carbon Dioxide 21.6 mmol/L (24-32.6) L 07/01/20 21:45 Anion Gap 18.0 mmol/L (6.8-13.8) H 07/01/20 21:45 BUN 10 mg/dL (6-23) 07/01/20 21:45 Creatinine 1.12 mg/dL (0.4-1.4) 07/01/20 21:45 Est GFR (Non-Af Amer) 70 mL/min (60-130) 07/01/20 21:45 BUN/Creatinine Ratio 8.9 (9.0-21.6) L 07/01/20 21:45 Random Glucose 243 mg/dL (70-110) H 07/01/20 21:45 Lactic Acid, Venous 1.3 mmol/L (0.4-2.0) 07/02/20 02:25 Calcium 8.3 mg/dL (7.9-10.9) 07/01/20 21:45 Calcium Adj for Albumin 8.2 mg/dL (8.4-10.2) L 07/01/20 21:45 Total Bilirubin 1.0 mg/dL (0.0-1.1) 07/01/20 21:45 AST 33 U/L (0-48) 07/01/20 21:45 ALT 32 U/L (19-67) 07/01/20 21:45 Alkaline Phosphatase 54 U/L (50-170) 07/01/20 21:45 Troponin I Less than 0.017 ng/mL (0.00-0.10) 07/01/20 23:55 Total Protein 7.0 gm/dL (6.2-8.2) 07/01/20 21:45 Albumin 3.7 gm/dl (3.4-5.0) 07/01/20 21:45 SARS-CoV-2 (PCR) Not detected (NotDetected) 07/01/20 21:47 Assessment/Plan - Narrative Narrative: Patient was evaluated medical chart was reviewed and decision to admit to [facility] for diagnosis of acute esophagitis and acute bronchitis was made. Consult to general surgery for EGD was placed, the case was discussed with Dr. Bullock who recommended starting the patient on a PPI and sulcal fate and switching him to a mechanical soft diet to make swallowing easier. He also recommended that the patient be placed on n.p.o. status after midnight tonight with plans to take him to the OR tomorrow. In the meantime symptomatic medicat ions with antiemetics and pain meds have been ordered to make the patient more comfortable. Given his long history with alcoholism alcohol withdrawal protocol was ordered as well as benzodiazepine to be used on as-needed basis. The patient was also started on thiamine and folic acid. - Assessment/Plan (1) History of ETOH abuse Problem: Acute (2) Alcohol withdrawal Problem: Acute (3) Musculoskeletal pain Problem: Acute (4) COPD (chronic obstructive pulmonary disease) Problem: Acute (5) Essential hypertension Problem: Acute (6) Chest wall pain Problem: Acute (7) DJD (degenerative joint disease) of cervical spine Problem: Acute (8) Hypertension Problem: Chronic Qualifiers: (9) Dysphagia Problem: Acute (10) Odynophagia Problem: Acute
[2020-07-02] MEDS ORDERED: NICOTINE 21 MG PATC TD SCH (13:30)
[2020-07-02] MEDS: THIAMINE HCL 100 MG/ML VIAL IM SCH (13:33)
[2020-07-02] MEDS: FOLIC ACID 1 MG TABLET PO SCH (13:33)
[2020-07-02] MEDS: PANTOPRAZOLE SODIUM 40 MG in NORMAL SALINE 100 ML IV SCH (13:34)
[2020-07-02] MEDS: NORMAL SALINE 1,000 ML IV ONE (13:45)
[2020-07-02] MEDS: MORPHINE SULFATE 2 MG/ML DISP.SYRIN IV PRN (13:45)
--- NOTE | 2020-07-02 15:16 | ANES ---
Anesthesia Pre Procedure Eval Vitals/Labs: Last Vital Signs Temp 36.7 C 07/02/20 10:00 Pulse 85 07/02/20 12:55 Resp 20 07/02/20 10:00 BP 160/89 H 07/02/20 12:55 Pulse Ox 93 07/02/20 10:00 HOME MEDICATIONS acetaminophen 325 mg tablet 650 mg PO BID #120 tab 01/12/20 [Last Taken Unknown] amlodipine 10 mg tablet 10 mg PO DAILY #30 tab 01/12/20 [Last Taken Unknown] hydroxyzine pamoate 25 mg capsule 25 mg PO TID PRN #30 cap 01/12/20 [Last Taken Unknown] baclofen 10 mg tablet 10 mg PO BID PRN #60 tab 01/26/20 [Last Taken 05/17/20 10:00] Allergies/Adverse Reactions: Allergies Allergy/AdvReac Type Severity Reaction Status Date / Time No Known Allergies Allergy Verified 05/17/20 18:34 - Planned Procedure Planned Procedure: Exacerbation of COPD, Sepsis Medication List Reviewed:: Yes Allergies Verified: Yes Medical History (Last Reviewed 07/02/20 @ 15:13 by Ander Chakraborty CRNA) Neck pain (Chronic) Hypertension (Chronic) Alcohol abuse Onset Date: Unknown Elevated liver enzymes Onset Date: Unknown Ligament tear Onset Date: Unknown fell and injured R knee, had ligaments repaired surgically Tatum-Sofia tear Back pain Onset Date: Unknown fell off ladder history of finger surgery Onset Date: Unknown right 2nd finger Surgical History (Last Reviewed 07/02/20 @ 15:13 by Ander Chakraborty CRNA) Bunion Onset Date: Unknown surgically removed from each foot H/O knee surgery Onset Date: Unknown right History of esophagogastroduodenoscopy (EGD) Onset Date: 12/19/16 12/18/16 [facility]-huge blood clot extending from the proximal to distal esophagus. 12/19/16 [facility]-large esophageal tear in the distal esophagus w/exposed muscle fiber. Family History (Last Reviewed 07/02/20 @ 15:13 by Ander Chakraborty CRNA) Father , age 59-COPD COPD (chronic obstructive pulmonary disease) Alcoholism Mother , age 48-diabetic complications Diabetes Hypertension Sister , age 70's-breast ca Cancer breast ca Brother Alive and well 5 brothers - Family Anesthesia History Family History:: no untoward family reactions to anesthesia, no familial bleeding tendencies, no family history of clotting disorders, no family history of premature - Airway/Neck/Teeth Teeth Condition: missing, poor condition Neck Exam: full range of motion Mallampatti Score: 2 Thyromental (T-M) distance: > 6 cm Mandibulo Hyoid distance: > 3 cm - Respiratory Respiratory History: COPD Respiratory Physical: rhonchi, wheezing Smoking Status: Current some day smoker - primarily chewing tobacco, smokes some when other source unavailable. Discussed smoking cessation including day of surgery: Yes Sleep Apnea currently treated: No Sleep Apnea by current assessment: No - Cardiovascular Cardiac History: hypertension Tolerate Activity: Poor - COSME one flight of stairs Heart Sounds: S1 & S2, Regular - Gastrointestinal NPO since: instructed midnight - Anesthesia Assessment and Plan ASA Class: PS, III Anesthesia Type Plan: MAC
--- NOTE | 2020-07-02 17:14 | CONS ---
[facility] - General Date of Service: 07/02/20 Narrative: He presented to the emergency room with chest pain last night. Initial work-up was negative for PE--although the contrast bolus timing was suboptimal. There was some EKG changes however on review by cardiology they were not felt to be acute infarction. Today while eating he had a substantial choking episode with coughing. Source: patient, RN/MD, RN notes reviewed, old records Exam Limitations: no limitations - History of Present Illness Severity: moderate Associated Symptoms: chest pain, cough Allergies/Adverse Reactions: Allergies No Known Allergies Allergy (Verified 05/17/20 18:34) Home Medications: Home Medications Medication Instructions Recorded Last Taken acetaminophen 325 mg tablet 650 mg PO BID #120 tab 01/12/20 Unknown amlodipine 10 mg tablet 10 mg PO DAILY #30 tab 01/12/20 Unknown hydroxyzine pamoate 25 mg capsule 25 mg PO TID PRN #30 cap 01/12/20 Unknown baclofen 10 mg tablet 10 mg PO BID PRN #60 tab 01/26/20 05/17/20 10:00 Procedures APPLICATION OF SPLINT (09/17/09) Bunionectomy with soft tissue correction and osteotomy of the first metatarsal (09/10/05) Closure of skin and subcutaneous tissue of other sites (05/13/06) Excision of semilunar cartilage of knee (02/02/02) Other local excision or destruction of lesion of joint, foot and toe (09/10/05) Other repair of the cruciate ligaments (02/02/02) Medications - Medications Current Medications: Current Medications Amlodipine Besylate (Norvasc) 10 mg PO DAILY CRISSY Stop: 08/01/20 12:31 Last Admin: 07/02/20 12:55 Dose: 10 mg Documented by: Folic Acid (Folic Acid) 1 mg PO DAILY CRISSY Stop: 08/01/20 13:01 Last Admin: 07/02/20 13:33 Dose: 1 mg Documented by: Sodium Chloride (Sodium Chloride 0.9%) 1,000 mls @ 126 mls/hr IV .Q7H57M PRN PRN Reason: HYDRATION Stop: 07/31/20 23:51 Last Infusion: 07/02/20 16:42 Dose: Infused Documented by: Pantoprazole Sodium 40 mg/ (Sodium Chloride) 100 mls @ 400 mls/hr IV Q12H CRISSY Stop: 08/01/20 13:01 Last Infusion: 07/02/20 16:42 Dose: Infused Documented by: Morphine Sulfate (Morphine Sulfate) 2 mg IV Q2H PRN PRN Reason: Pain Stop: 08/01/20 13:25 Last Admin: 07/02/20 13:45 Dose: 2 mg Documented by: Nicotine (Nicoderm) 21 mg TD Q24H CRISSY Stop: 08/01/20 13:31 Last Admin: 07/02/20 13:34 Dose: 21 mg Documented by: Nitroglycerin (Nitrostat) 0.4 mg SL Q5MIN PRN PRN Reason: Pain Stop: 07/31/20 22:01 Last Admin: 07/01/20 22:11 Dose: 0.4 mg Documented by: Thiamine HCl (Vitamin B-1) 100 mg IM DAILY [facility] Stop: 08/01/20 13:01 Last Admin: 07/02/20 13:33 Dose: 100 mg Documented by: Review of Systems - Review of Systems Generalized/Overall Review: Absent: Chills, Fever EENTM: Present: No Symptoms Reported Respiratory: Present: Cough, Other - Dyspnea on exertion Cardiac: Present: Other - He complains he has a ton of bricks on his chest. He has had this for a couple months Abdominal: Present: Other - He had trouble swallowing the meat at lunch. He had to wash it down. He has subsequently had canned fruit and liquids without difficulty. Absent: Abdominal Pain, Bright blood from rectum Genitourinary: Present: No Symptoms Reported Musculoskeletal: Present: Back Pain, Other - He apparently fell off a ladder several years ago and has had severe back pain since Neurological: Absent: Seizure Skin: Present: No Symptoms Reported Physical Examination - Exam Vital Signs: Vital Signs - Last Taken Temp 36.3 C 07/02/20 16:00 Pulse 80 07/02/20 16:00 Resp 16 07/02/20 16:00 BP 161/92 H 07/02/20 16:00 Pulse Ox 94 07/02/20 16:00 O2 Oxygen Delivery Method Room Air Constitutional: Present: Alert, Oriented x3, Cooperative, Well developed, Well nourished, No distress, Other - Somewhat disheveled. Dysarthric ENT Exam: Present: normal ENT inspection, other - Poor dentition Eye Exam: bilateral eye: normal inspection Neck: Present: normal inspection Respiratory: Present: no respiratory distress Cardiovascular/Chest: Present: regular rate, rhythm Abdomen: Present: obese - He denies abdominal pain or tenderness /Rectal: Present: Exam deferred Extremity: Present: normal range of motion, no pedal edema Skin Exam: Present: warm/dry Neurologic: Present: other - Somewhat dysarthric Appearance: Present: disheveled Eye contact: Present: cooperative, good eye contact Thoughts: Present: normal thought pattern - Results and Findings: Lab/Microbiology results last 24 hrs: Abnormal/Pending Laboratory Last 24 HRS 07/01/20 07/01/20 07/01/20 21:45 21:45 21:45 RBC 4.46 L Hgb 13.0 L Hct 38.2 L Immature Gran % (Auto) 0.80 H Immature Gran # (Auto) 0.04 H Basophils % 1.4 H Lymphocytes # 1.46 L D-Dimer 0.57 H Carbon Dioxide 21.6 L Anion Gap 18.0 H BUN/Creatinine Ratio 8.9 L Random Glucose 243 H Lactic Acid, Venous Calcium Adj for Albumin 8.2 L 07/01/20 21:30 RBC Hgb Hct Immature Gran % (Auto) Immature Gran # (Auto) Basophils % Lymphocytes # D-Dimer Carbon Dioxide Anion Gap BUN/Creatinine Ratio Random Glucose Lactic Acid, Venous 5.2 H* Calcium Adj for Albumin - Assessments/Findings (1) Dysphagia Diagnosis(s): In 2016 he was seen at the [facility] after hematemesis. Initial attempted EGD without intubation revealed a large clot in the esophagus and the procedure was aborted. He had a fiberoptic assisted endotracheal intubation and under general anesthetic and esophagoscopy was accomplished. There was a long tear in the distal esophagus with exposed muscle. The procedure was aborted due to fear of perforation. The patient states this happened after he ate a homemade burrito and apparently had esophageal obstruction, but his history is not very clear. He was seen in 2018 and 2019 by for bilateral inguinal hernias and an umbilical hernia. He was apparently scheduled for endoscopy and hernia repair both times, however he never kept the follow-up appointments. He has a history of heavy alcohol use. He states the pain in his chest is different from the discomfort he gets when he swallows solid food. He is not a precise historian Pamphlets on EGD and GERD were reviewed with him and given to him. I explained what was involved with EGD. The possible complications were discussed. After an interactive discussion his questions were answered to his apparent satisfaction and he has given informed consent for EGD with biopsies. He has been started on proton pump inhibitor and sucralfate. NSAID's should be avoided. He may have liquids and soft foods as long as he does not have trouble swallowing. He will be n.p.o. after midnight, with upper endoscopy in the morning. Problem: Acute
[2020-07-02] MEDS: SUCRALFATE 1 G TABLET PO SCH ×2 (17:44→20:48)
[2020-07-02] MEDS ORDERED: PANTOPRAZOLE SODIUM 20 MG TABLET.DR PO SCH (21:00)
[2020-07-03] MEDS: MORPHINE SULFATE 2 MG/ML DISP.SYRIN IV PRN ×3 (00:01→09:09)
[2020-07-03] MEDS: PANTOPRAZOLE SODIUM 40 MG in NORMAL SALINE 100 ML IV SCH (00:05)
[2020-07-03] MEDS: NORMAL SALINE 1,000 ML IV PRN (06:34)
[2020-07-03] MEDS ORDERED: PROPOFOL VIAL IV ONE (06:39)
[2020-07-03] MEDS ORDERED: GLYCOPYRROLATE 0.2 MG/ML VIAL ONE (06:39)
[2020-07-03] MEDS ORDERED: SUCCINYLCHOLINE CHLORIDE 20 MG/ML VIAL ONE (06:39)
[2020-07-03] MEDS ORDERED: fentaNYL CITRATE/PF 50 MCG/ML AMPUL ONE (06:39)
[2020-07-03] MEDS ORDERED: NEOSTIGMINE METHYLSULFATE 1 MG/ML VIAL ONE (06:39)
[2020-07-03] MEDS ORDERED: ONDANSETRON HCL/PF 2 MG/ML VIAL ONE (06:39)
[2020-07-03] MEDS ORDERED: ROCURONIUM BROMIDE 10 MG/ML VIAL ONE (06:39)
[2020-07-03] MEDS ORDERED: LIDOCAINE HCL 20 ML VIAL ONE (06:39)
[2020-07-03 06:48] LABS: Hematocrit 39.1 % (42.0-52.0); Hemoglobin 13.1 gm/dL (13.5-18.0); Mean Cell Volume 88.5 fl (78-100); Mean Corpuscular Hemoglobin 29.6 pg (27-31); Mean Corpuscular Hgb Conc 33.5 g/dl (32-36); Mean Platelet Volume 9.2 fl (8-11.3); Neutrophil # 3.2 K/mm3 (1.3-6.0); Neutrophil % 58.3 % (42-75.0); Platelet Count 158 K/mm3 (150-450); Red Blood Count 4.42 M/mm3 (4.7-6.0); Red Cell Distribution Width 12.6 % (11.5-14.0); White Blood Count 5.6 K/mm3 (4.0-10.5)
[2020-07-03 06:56] LABS: Albumin * 3.4 gm/dl (3.4-5.0); Anion Gap 14.4 mmol/L (6.8-13.8); BUN/Creatinine Ratio 4.5 (9.0-21.6); Ca. Corrected For Albumin 7.8 mg/dL (8.4-10.2); Calcium * 7.6 mg/dL (7.9-10.9); Carbon Dioxide 23.9 mmol/L (24-32.6); Potassium 3.3 mmol/L (3.4-4.6); Total Protein 6.5 gm/dL (6.2-8.2)
--- NOTE | 2020-07-03 07:37 | ANES ---
Post Anesthesia Discharge - Transfer of Care Transfer of Care handoff given to nurse: Yes - Discharge from PACU Discharge from PACU when meets criteria: Yes - Discharge to ASU Discharge to ASU-no complications/pt stable: Yes
--- NOTE | 2020-07-03 07:39 | OR ---
Operative Report - Dictated Report Narrative: Operative Report Date of operation: 07/03/2020 Preoperative diagnosis: Dysphagia Postoperative diagnosis: Esophagitis, gastritis (pathology and CLOtest pending) Operation: EGD with biopsies Surgeon: Dr Bullock Anesthesia: General endotracheal Jluis Price CRNA Indications for procedure: The patient is a 64-year-old male admitted with chest pain. He demonstrates considerable dysphagia. He has a past history of esophageal tear and alcohol abuse Findings: Esophagitis without stricture or varices, gastritis (pathology and CLOtest pending) Narrative of procedure: The patient was identified preoperatively, and prior to the administration of anesthetic a multidisciplinary timeout was observed With the patient in the recumbent position, SCDs were placed and general endotracheal anesthetic administered. The flexible fiberoptic gastroscope was advanced alongside the endotracheal tube into the posterior pharynx which appeared normal. The endotracheal tube was seen to be in good position. The supraglottic larynx appeared normal. The scope was advanced under direct vision into the proximal esophagus which appeared normal. The esophagus appeared freely distensible with normal mucosa. No varices were noted. The esophageal mucosa appeared normal down to the gastroesophageal junction where a single linear erosion was noted. The GE junction appeared normally distensible and relatively noninflamed. The scope was advanced into the stomach which was insufflated with air. There was morillo gastric erythema but no marito ulcerations or neoplastic lesions were appreciated including a retroflexed view of the gastric fundus which also demonstrated a normal gastric side of the GE junction. The scope was redirected toward the pylorus. There was erythema on prepyloric folds (watermelon stomach). The pylorus appeared patent. The scope was a dvanced into the duodenal bulb which mildly erythematous compatible with reflux changes. The scope was advanced further to the horizontal portion of the duodenum which appeared normal, specifically the villous architecture appeared well preserved and clear bile was present. The scope was slowly withdrawn through the duodenal bulb with confirmation that no active ulcer was present. The scope was withdrawn into the stomach and licensing representative biopsies of gastric mucosa obtained for CLOtest and pathology. The biopsy sites were seen to be hemostatic. The insufflated air was removed and the stomach, the scope withdrawn from the patient, and the procedure terminated. The patient tolerated the anesthetic and procedure well without complication and was transferred to the recovery room awake, extubated, and in stable condition. Reviewed and electronically signed
[2020-07-03] MEDS: SUCRALFATE 1 G TABLET PO SCH ×2 (07:45→10:58)
[2020-07-03] MEDS: amLODIPine BESYLATE 10 MG TABLET PO SCH (08:34)
[2020-07-03] MEDS: FOLIC ACID 1 MG TABLET PO SCH (08:35)
[2020-07-03] MEDS: THIAMINE HCL 100 MG/ML VIAL IM SCH (08:39)
--- NOTE | 2020-07-03 09:20 | ANES ---
Post Anesthesia Assessment - Vital Signs Vitals: Last Vital Signs Temp 37.1 C 07/03/20 08:00 Pulse 86 07/03/20 09:00 Resp 20 07/03/20 09:00 BP 137/92 H 07/03/20 09:00 Pulse Ox 95 07/03/20 09:00 Airway Patency: Normal - Mental Status Level Of Consciousness: Awake - Pain Level Pain Score: 10 - N/V Assessment Nausea/Vomiting Presence: None Dehydration:: No
[2020-07-03] MEDS ORDERED: POTASSIUM CHLORIDE 20 MEQ TABLET.SA PO ONE (10:40)
--- NOTE | 2020-07-03 10:57 | DS ---
(1) History of ETOH abuse Problem: Acute (2) Alcohol withdrawal Problem: Acute (3) Musculoskeletal pain Problem: Chronic (4) COPD (chronic obstructive pulmonary disease) Problem: Chronic (5) Essential hypertension Problem: Chronic (6) Chest wall pain Problem: Resolved (7) DJD (degenerative joint disease) of cervical spine Problem: Chronic (8) Hypertension Problem: Chronic Qualifiers: (9) Dysphagia Problem: Acute (10) Odynophagia Problem: Acute (11) Acute esophagitis Problem: Acute (12) Acute gastritis without hemorrhage Problem: Acute (13) Hypokalemia Problem: Acute Date of Discharge:: 07/03/20 Hospital Course: 64-year-old male admitted for chest pain which was ruled out as OR, and acute esophagitis was evaluated at bedside was found to be afebrile and in no acute distress. Patient was evaluated by the general surgeon who conducted a EGD whose only finding was erythema and irritation of the distal portion of the esophagus and stomach. There were no evidence of ulcers or erosion, biopsies were taken and sent the lab. The patient's pain improved with Protonix and sulcalfate so we will keep him on those medications. We will discharge patient home with additional days of the mentioned medications and strict instructions to avoid alcohol consumption, and instructions to follow-up with his PCP in 5 days. The patient was also found to have mild hypokalemia this morning so he will be administered p.o. potassium supplementation and orders to repeat a CMP in 3 days. Procedures Performed: see notes below - EGD Results and Findings: Pending Mircobiology Results 07/01/20 21:47 Blood Blood Culture - Preliminary NO GROWTH 24 HOURS 07/01/20 23:55 Blood Blood Culture - Preliminary NO GROWTH 24 HOURS Lab Pending Results 07/01/20 21:30: Lactic Acid, Venous 5.2 H* 07/01/20 21:45: WBC 4.9, RBC 4.46 L, Hgb 13.0 L, Hct 38.2 L, MCV 85.7, MCH 29.1, MCHC 34.0, RDW 12.5, Plt Count 234, MPV 9.5, Immature Gran % (Auto) 0.80 H, Immature Gran # (Auto) 0.04 H, Neutrophils % 56.7, Lymphocytes % 29.6, Monocytes % 8.9, Eosinophils % 2.6, Basophils % 1.4 H, Nucleated RBC % 0.0, Neutrophils # 2.8, Lymphocytes # 1.46 L, Monocytes # 0.4, Eosinophils # 0.1, Absolute Basophils 0.1 07/01/20 21:45: PT 10.0, INR (Anticoag Therapy) 1.01, PTT (Dc) 26.2 07/01/20 21:45: Sodium 134, Plasma Sodium 136, Potassium 3.6, Chloride 98, Carbon Dioxide 21.6 L, Anion Gap 18.0 H, BUN 10, Creatinine 1.12, Est GFR (Non- Af Amer) 70, BUN/Creatinine Ratio 8.9 L, Random Glucose 243 H, Calcium 8.3, Calcium Adj for Albumin 8.2 L, Total Bilirubin 1.0, AST 33, ALT 32, Alkaline Phosphatase 54, Troponin I Less than 0.017, Total Protein 7.0, Albumin 3.7 07/01/20 21:45: D-Dimer 0.57 H 07/01/20 21:47: SARS-CoV-2 (PCR) Not detected 07/01/20 23:55: Troponin I Less than 0.017 07/02/20 02:25: Lactic Acid, Venous 1.3 07/03/20 06:34: WBC 5.6, RBC 4.42 L, Hgb 13.1 L, Hct 39.1 L, MCV 88.5, MCH 29.6, MCHC 33.5, RDW 12.6, Plt Count 158, MPV 9.2, Immature Gran % (Auto) 0.50 H, Immature Gran # (Auto) 0.03, Neutrophils % 58.3, Lymphocytes % 26.8, Monocytes % 8.1, Eosinophils % 5.6 H, Basophils % 0.7, Nucleated RBC % 0.0, Neutrophils # 3.2, Lymphocytes # 1.49 L, Monocytes # 0.5, Eosinophils # 0.3, Absolute Basophil s 0.0 07/03/20 06:34: Sodium 139, Plasma Sodium 139, Potassium 3.3 L, Chloride 104, Carbon Dioxide 23.9 L, Anion Gap 14.4 H, BUN 4 L D, Creatinine 0.88, Est GFR (Non-Af Amer) 93 D, BUN/Creatinine Ratio 4.5 L, Random Glucose 102 D, Calcium 7.6 L, Calcium Adj for Albumin 7.8 L, Total Bilirubin 1.0, AST 26, ALT 26, Alkaline Phosphatase 55, Total Protein 6.5, Albumin 3.4 07/03/20 07:22: Pathology Specimen Spec to path Discharge Location: Home Disposition: Home self-care Condition: Good Discharge Activity: Activity as tolerated Discharge Diet: General/regular food Referrals: Nereyda Tamayo FNP [Primary Care Provider] - Prescriptions (Any new or edited meds): Sucralfate [Carafate] 1 g PO ACHS #30 tab Transmission Status: Pending to [facility] Folic Acid 1 mg PO DAILY #30 tab Transmission Status: Pending to [facility] Levofloxacin [Levaquin] 500 mg PO DAILY@1100 #3 tab Transmission Status: Pending to [facility] Omeprazole 20 mg PO BID #120 tablet.dr Transmission Status: Pending to [facility] Complete Home Medications List: Complete Home Medication List: acetaminophen 325 mg tablet 650 mg PO BID #120 tab 01/12/20 amlodipine 10 mg tablet 10 mg PO DAILY #30 tab 01/12/20 hydroxyzine pamoate 25 mg capsule 25 mg PO TID PRN #30 cap 01/12/20 baclofen 10 mg tablet 10 mg PO BID PRN #60 tab 01/26/20 Folic Acid 1 mg PO DAILY #30 tab 07/03/20 Levofloxacin [Levaquin] 500 mg PO DAILY@1100 #3 tab 07/03/20 Omeprazole 20 mg PO BID #120 tablet. 07/03/20 Sucralfate [Carafate] 1 g PO ACHS #30 tab 07/03/20 Forms: Patient Portal Registration
[2020-07-03] MEDS ORDERED: LEVOFLOXACIN 500 MG TABLET PO SCH (11:00)
[2020-07-03] MEDS ORDERED: FLU VACC QS2020-21(6MOS UP)/PF 60 MCG/0.5 ML SYRINGE IM ONE (11:26)
[2020-07-03 11:37] VITALS: BP 139/74
== END 2020-07-03 12:28 | disposition home or self-care (01) | DRG 381 ==
LOC: ER 21:26 → MS 07-02 03:24
PROVIDERS: ADMIT Family Medicine; ATTEND Family Medicine
DX: K31.9 Disease of stomach and duodenum, unspecified; Z23 Encounter for immunization; K29.00 Acute gastritis without bleeding; K22.10 Ulcer of esophagus without bleeding; M47.812 Spondylosis without myelopathy or radiculopathy, cervical region; E87.6 Hypokalemia; J44.9 Chronic obstructive pulmonary disease, unspecified; R07.89 Other chest pain; F10.139 Alcohol abuse with withdrawal, unspecified; I10 Essential (primary) hypertension